=== PATIENT | female | born 1970 | race Caucasian/White ===

== ENCOUNTER 2017-03-30 06:11 | Inpatient (IN) | payer MEDICARE ==
[~2017-03-30] VITALS: Ht 167.6 cm; Wt 107.7 kg
[~2017-03-30 06:11] MED LIST: ADVAIR 250/501 DISK INH; BUSPAR10 MG PO; CALCIUM 600+D T1 TA1 PO; CELEXA40 MG PO; COUMADIN5 MG PO; CRANBERRY475 MG PO; CYCLOBENZAPRINE10 MG PO; DOC-Q-LACE100 MG PO; ELIQUIS2.5 MG PO; FLEXERIL10 MG PO; INDOCIN25 MG PO; K-DUR20 MEQ PO; LASIX40 MG PO; LEVAQUIN750 MG PO; MACRODANTIN100 MG PO; MEDROL DOSE PACK4 MG PO; MEDROL2 MG PO; MICRO-K10 MEQ PO; MUCINEX600 MG PO; NAPROSYN250 MG PO; NEURONTIN800 MG PO; NIFEREX-150 CAP1 CA3 PO; OMNICEF300 MG PO; PEPCID AC20 MG PO; PERCOCET 10/3251 TA1; PERCOCET 10/3251 TA1 PO; PERCOCET 5-3251 TAB PO; PROVENTIL/2.5 MG/3 M NEB; PROZAC20 MG PO; PROZAC40 MG PO; ROXICET PO; SEROQUEL100 MG PO; TRILEPTAL300 MG PO; TRILEPTAL600 MG PO; VALIUM5 MG PO; VENTOLIN HFA18 GM INH; VOLTAREN75 MG PO; ZIAC 5/6.25 MG1 TAB; ZIAC 5/6.25 MG1 TAB PO; ZITHROMAX500 MG PO; [UNRECOGNIZED DRUG - OTHER] PO
[2017-03-30 06:44] LABS: BASOPHILS 0.1 % (0-2); EOSINOPHILS 0.3 % (0-7); HEMATOCRIT 34.7 % (36.0-48.0); HEMOGLOBIN 11.2 g/dL (12-16); IMMATURE GRANULOCYTES 0.5 % (0-5); LYMPHOCYTES 15.5 % (15-50); MCH 32.3 pg (26.0-34.0); MCHC 32.3 g/dL (31.0-37.0); MEAN PLATELET VOLUME 11.1 fL (7.4-10.4); MONOCYTES 11.3 % (2-11); NEUTROPHILS 72.3 % (40-80); RBC 3.47 10x6/uL (4.00-5.40); RDW 14.9 % (11.5-14.5); WBC 17.6 10x3/uL (4.8-10.8)
[2017-03-30 06:58] LABS: ALBUMIN 2.9 g/dL (3.4-5.0); ALKALINE PHOSPHATASE 79 U/L (46-116); ALT (SGPT) 25 U/L (10-68); AMYLASE - SERUM 22 U/L (25-115); CALC OSMOLALITY 272 mosm/kg (275-300); CALCIUM 9.2 mg/dL (8.5-10.1); CARBON DIOXIDE 26.4 mmol/L (21.0-32.0); CHLORIDE - SERUM 101 mmol/L (98-107); CREATININE - SERUM 0.7 mg/dL (0.6-1.3); LIPASE 69 U/L (73-393); POTASSIUM - SERUM 3.3 mmol/L (3.5-5.1); PROTEIN - SERUM 6.7 g/dL (6.4-8.2); SODIUM 137 mmol/L (136-145); UREA NITROGEN 11 mg/dL (7-18); eGFR NON AFRICAN AMERICAN > 90 mL/min (90-120)
[2017-03-30 07:00] LABS: GLUCOSE 102 mg/dL (74-106)
[2017-03-30 07:05] LABS: PLATELET COUNT 366 10x3/uL (130-400)
[2017-03-30 07:40] LABS: UDS - AMPHET NEGATIVE QUAL (NEGATIVE); UDS - BARB NEGATIVE QUAL (NEGATIVE); UDS - BENZO POSITIVE QUAL (NEGATIVE); UDS - COCAINE NEGATIVE QUAL (NEGATIVE); UDS - METH NEGATIVE QUAL (NEGATIVE); UDS - OPIATE NEGATIVE QUAL (NEGATIVE); UDS - PCP NEGATIVE QUAL (NEGATIVE); UDS - THC NEGATIVE QUAL (NEGATIVE)
[2017-03-30 07:41] LABS: APPEARANCE CLEAR (CLEAR); BILIRUBIN NEGATIVE (NEGATIVE); COLOR YELLOW (YELLOW); GLUCOSE NEGATIVE (NEGATIVE); KETONE NEGATIVE (NEGATIVE); LEUKOCYTE ESTERASE TRACE (NEGATIVE); NITRITE NEGATIVE (NEGATIVE); PROTEIN NEGATIVE (NEGATIVE)
[2017-03-30 07:43] LABS: RED CELLS - URINE 0-5 /hpf (0-5)
[2017-03-30 07:43] LABS: CREATINE KINASE 17 UL (21-215); TROPONIN-I < 0.017 ng/mL (0.000-0.060)
[2017-03-30 07:44] LABS: BACTERIA FEW /hpf (NONE SEEN); EPITHELIAL CELLS 25-50 /hpf (0-5)
--- NOTE | 2017-03-30 12:21 | NUR ---
ALERT AND ORIENTED X4. ARRIVE TO UNIT VIA WHEELCHAIR FROM ER. LEVAQUIN AND NS BOLUS GIVEN IN ER. ZOFRAN AND TORADOL GIVEN IN ER. COMPLAINS OF SOB. OXYGEN THERAPY 2L NC. RECIEVE UPDRAFT FROM RESPIRATORY THERAPY. INITIATE VANCOMYCIN INFUSION ORDERED. CONTINUE ADMISSION PROCESS. BED LOCKED AND LOW. CALL LIGHT IN REACH. TWO SIDERAILS UP. REFUSE SCDs. AMBULATORY. GAIT STEADY.
[2017-03-30] MEDS ORDERED: PROZAC10 MG PO (12:24)
[2017-03-30] MEDS ORDERED: CYMBALTA30 MG PO (12:26)
[2017-03-30] MEDS ORDERED: INVEGA6 MG/BLIST PO (12:27)
[2017-03-30] MEDS ORDERED: ULTRAM50 MG PO (12:28)
[2017-03-30] MEDS ORDERED: BACLOFEN10 MG PO (12:28)
[2017-03-30 13:13] VITALS: BP 110/73; BMI 36.2
--- NOTE | 2017-03-30 14:14 | NUR ---
ALERT AND ORIENTED X4. RESTING IN BED. PRABHA RAYMUNDO CALLED FOR UPDATE. NOT ON HIPPA FORM. ASK PATIENT IF OK TO TALK WITH PRABHA. OK TO GIVE INFORMATION TO PRABHA PER PATIENT. CONTINUE PLAN OF CARE AND SAFETY PRECAUTIONS. COOKY MACHINE OPERATOR DENIES TELEMETRY DUE TO LIMITED SPOTS ON MONITOR.
[2017-03-30 16:59] VITALS: BP 90/59
[2017-03-30 21:16] VITALS: BP 134/68
--- NOTE | 2017-03-30 21:42 | NUR ---
PT AWAKE, ALERT, ORIENTED, LYING IN BED, DENIES ANY NEEDS. PT STATES SHE DOES HAVE PAIN WHEN SHE COUGHS. CONTINUE TO MONITOR CLOSELY. BED LOW, CALL LIGHT IN REACH, SIDE RAILS X 2, HOB 30 DEGREES.
[2017-03-30 23:55] VITALS: BP 125/76
--- NOTE | 2017-03-31 01:01 | NUR ---
PT LYING IN BED, EYES CLOSED, RESPIRATIONS EVEN AND UNLABORED. PT EASILY ROUSABLE TO VERBAL STIMULI, DENIES ANY NEEDS. CONTINUE TO MONITOR CLOSELY.
[2017-03-31 03:56] VITALS: BP 111/70
[2017-03-31 06:27] LABS: BASOPHILS 0.1 % (0-2); EOSINOPHILS 1.2 % (0-7); HEMATOCRIT 31.2 % (36.0-48.0); HEMOGLOBIN 10.1 g/dL (12-16); IMMATURE GRANULOCYTES 1.2 % (0-5); LYMPHOCYTES 18.1 % (15-50); MCH 32.9 pg (26.0-34.0); MCHC 32.4 g/dL (31.0-37.0); MCV 101.6 fL (80.0-100.0); MEAN PLATELET VOLUME 11.4 fL (7.4-10.4); NEUTROPHILS 65.4 % (40-80); PLATELET COUNT 318 10x3/uL (130-400); RBC 3.07 10x6/uL (4.00-5.40); WBC 14.8 10x3/uL (4.8-10.8)
[2017-03-31 07:36] LABS: ALBUMIN 2.2 g/dL (3.4-5.0); ALKALINE PHOSPHATASE 69 U/L (46-116); ALT (SGPT) 20 U/L (10-68); CALC OSMOLALITY 280 mosm/kg (275-300); CALCIUM 8.7 mg/dL (8.5-10.1); CARBON DIOXIDE 27.4 mmol/L (21.0-32.0); CHLORIDE - SERUM 106 mmol/L (98-107); CREATININE - SERUM 0.7 mg/dL (0.6-1.3); GLUCOSE 102 mg/dL (74-106); PROTEIN - SERUM 5.2 g/dL (6.4-8.2); SODIUM 141 mmol/L (136-145); UREA NITROGEN 12 mg/dL (7-18); eGFR NON AFRICAN AMERICAN > 90 mL/min (90-120)
[2017-03-31 08:00] VITALS: BP 116/77
--- NOTE | 2017-03-31 09:15 | NUR ---
PATEINT IS AWAKE AND ALERT, INTERACTIVE THIS MORNING. ALL ORAL MEDICATIONS GIVEN AND TAKEN WITHOUT DIFFICULTY. ULTRAM GIVEN FOR BACK DISCOMFORT. FRESH ICE WATER GIVEN. SHE DENIES OTHER NEEDS AT THIS TIME.
--- NOTE | 2017-03-31 10:36 | NUR ---
PATIENT IS RESTING WITH EYES CLOSED WHEN I ENTER. SHE STATES THAT HER PAIN IS MUCH BETTER. DOWN TO A 3.
[2017-03-31 11:56] VITALS: BP 107/65
[2017-03-31 13:47] VITALS: Ht 167.6 cm; Wt 107.7 kg
--- NOTE | 2017-03-31 14:31 | NUR ---
PATIENT AWAKE AND ALERT, TOOK MEDICATIONS WITHOUT DIFFICULTY. DENIES NEEDS.
[2017-03-31 17:48] VITALS: BP 93/67
--- NOTE | 2017-03-31 18:36 | NUR ---
Patient Name: GRICELDA SANDOVAL Admission Status: ER Accout number: [id number] Admission Date: 03-30-2017 : 1970 Admission Diagnosis: Attending: RICHAR Current LOS: 1 Anticipated DC Date: Planned Disposition: Home Primary Insurance: MEDICARE A & B Discharge Planning Comments: CM MET WITH PATIENT TO DISCUSS DISCHARGE PLANNING/NEEDS. PATIENT STATED THAT SHE LIVES AT HOME WITH HER SON AND GRANDDAUGHTER. STATED THAT THIS IS WHERE SHE PLANS TO RETURN. SHE STATED THAT HER LDMRST-NR-WNM, TARYN HARRIS, WOULD BE HER RIDE HOME, BUT SHE DID NOT KNOW HIS NUMBER. SAID THAT HER SON WOULD HAVE TO GET IT FOR HER. SHE STATED THAT SHE HAD HOME HEALTH >3 YEARS AGO AFTER HER KNEE SURGERY BUT HASN'T HAD ANY SINCE THEN. SHE DENIES THE NEED FOR ANY COMMUNITY RESOURCES AT THIS TIME. CM WILL CONTINUE TO FOLLOW AND ASSIST NEEDED. Prescriptionist: Kaci Samuels Is the patient Alert and Oriented? Yes * How many steps to enter\exit or inside your home? 3, RAIL * PCP DR EN[place] * Pharmacy [facility] * Preadmission Environment Home with Family * ADLs Independent * Equipment Cane * List name and contact numbers for known caregivers / representatives who currently or will assist patient after discharge: SHON CEDEÑO, SISTER, * Community resources currently utilized None * Additional services required to return to the preadmission environment? No * Can the patient safely return to the preadmission environment? Yes * Has this patient been hospitalized within the prior 30 days at any hospital? No
[2017-03-31 19:00] VITALS: BP 141/83
--- NOTE | 2017-03-31 21:42 | NUR ---
PT AWAKE, ALERT, ORIENTED, DENIES ANY NEEDS. CONTINUE TO MONITOR CLOSELY. BED LOW, CALL LIGHT IN REACH, SIDE RAILS X 2, HOB 30-35 DEGREES, PT TO CALL WHEN NEEDING ANY ASSIST.
[2017-04-01] VITALS: BP 139/87
[2017-04-01 04:00] VITALS: BP 118/75
[2017-04-01 05:13] LABS: BASOPHILS 0.1 % (0-2); HEMATOCRIT 31.2 % (36.0-48.0); IMMATURE GRANULOCYTES 1.2 % (0-5); LYMPHOCYTES 16.9 % (15-50); MCH 32.5 pg (26.0-34.0); MCHC 32.1 g/dL (31.0-37.0); MCV 101.3 fL (80.0-100.0); MEAN PLATELET VOLUME 11.3 fL (7.4-10.4); MONOCYTES 11.6 % (2-11); NEUTROPHILS 69.2 % (40-80); PLATELET COUNT 339 10x3/uL (130-400); RBC 3.08 10x6/uL (4.00-5.40); RDW 14.8 % (11.5-14.5); WBC 15.5 10x3/uL (4.8-10.8)
[2017-04-01 05:39] LABS: ALKALINE PHOSPHATASE 77 U/L (46-116); ALT (SGPT) 15 U/L (10-68); BILIRUBIN - TOTAL 0.64 mg/dL (0.2-1.3); CARBON DIOXIDE 27.9 mmol/L (21.0-32.0); CHLORIDE - SERUM 103 mmol/L (98-107); CREATININE - SERUM 0.6 mg/dL (0.6-1.3); POTASSIUM - SERUM 3.5 mmol/L (3.5-5.1); PROTEIN - SERUM 5.6 g/dL (6.4-8.2); SODIUM 138 mmol/L (136-145); UREA NITROGEN 11 mg/dL (7-18); eGFR NON AFRICAN AMERICAN > 90 mL/min (90-120)
[2017-04-01 05:53] LABS: CALC OSMOLALITY 277 mosm/kg (275-300); CALCIUM 8.8 mg/dL (8.5-10.1); GLUCOSE 157 mg/dL (74-106)
--- NOTE | 2017-04-01 06:25 | NUR ---
PT AWAKE, ALERT, ORIENTED, DENIES ANY NEEDS. CONTINUE TO MONITOR CLOSELY.
[2017-04-01 08:00] VITALS: BP 117/78
--- NOTE | 2017-04-01 08:03 | NUR ---
AM ROUNDING- RECEIVED REPORT FROM OPAL POLISHER NURSE MARIE. PT IS CURRENTLY LAYING IN BED ON BACK WITH EYES OPEN RESTING. ON 02 AT 2L VIA NC. ON MONITOR SHOWING SR, HR 98. IV SEEN TO RIGHT AC WITH NS RUNNING AT KVO (30CC). NO NEED AT CURRENT TIME. WILL CONTINUE TO MONITOR AND CONTINUE WITH PLAN OF CARE.
[2017-04-01 12:00] VITALS: BP 124/81
[2017-04-01 15:51] VITALS: BP 123/70
--- NOTE | 2017-04-01 18:07 | NUR ---
PT IS CURRENTLY SITTING UP IN BED WITH EYES OPEN RESTING. PT DENIES ANY NEED AT CURRENT TIME. WILL CONTINUE TO MONITOR.
[2017-04-01 19:00] VITALS: BP 119/72
--- NOTE | 2017-04-01 21:00 | NUR ---
SHIFT ASSESSMENT COMPLETED. LYING IN BED RESTING. NO VOICED NEEDS AT THIS TIME. MONITOR SHOWS SINUS RHYTHM W/ BBB AT 88/MIN. O2 ON @ 2L/NC. BED LOW POSITION. CALL LIGHT IN REACH. WILL CONTINUE TO MONITOR.
[2017-04-02] VITALS (11 sets, daily range): BP systolic 116–166; BP diastolic 74–100
[2017-04-02 06:23] LABS: BASOPHILS 0.1 % (0-2); EOSINOPHILS 0 % (0-7); HEMATOCRIT 32.7 % (36.0-48.0); HEMOGLOBIN 10.8 g/dL (12-16); IMMATURE GRANULOCYTES 2.1 % (0-5); LYMPHOCYTES 10.5 % (15-50); MCH 32.8 pg (26.0-34.0); MCV 99.4 fL (80.0-100.0); MEAN PLATELET VOLUME 10.6 fL (7.4-10.4); MONOCYTES 7.3 % (2-11); PLATELET COUNT 328 10x3/uL (130-400); RBC 3.29 10x6/uL (4.00-5.40); RDW 14.6 % (11.5-14.5)
[2017-04-02 06:41] LABS: ALBUMIN 2.1 g/dL (3.4-5.0); ALKALINE PHOSPHATASE 83 U/L (46-116); ALT (SGPT) 15 U/L (10-68); CALC OSMOLALITY 285 mosm/kg (275-300); CALCIUM 9.1 mg/dL (8.5-10.1); CARBON DIOXIDE 27.8 mmol/L (21.0-32.0); CHLORIDE - SERUM 105 mmol/L (98-107); CREATININE - SERUM 0.6 mg/dL (0.6-1.3); GLUCOSE 182 mg/dL (74-106); POTASSIUM - SERUM 3.9 mmol/L (3.5-5.1); PROTEIN - SERUM 6.5 g/dL (6.4-8.2); SODIUM 141 mmol/L (136-145); UREA NITROGEN 13 mg/dL (7-18); eGFR NON AFRICAN AMERICAN > 90 mL/min (90-120)
--- NOTE | 2017-04-02 08:00 | NUR ---
AM ROUNDING- RECEIVED REPORT FROM WINDOW SHADE RING COVERER NURSE DORIS. PT IS CURRENTLY LAYING IN BED ON BACK WITH EYES CLOSED RESTING. ON 02 AT 2L VIA NC. ON MONITOR SHOWING SR, HR 89. IV SEEN TO RIGHT AC WITH NS RUNNING AT KVO (30CC) WITH NEW BAG JUST HUNG. NO NEED AT CURRENT TIME. WILL CONTINUE TO MONITOR AND CONTINUE WITH PLAN OF CARE.
--- NOTE | 2017-04-02 14:00 | NUR ---
CONSENTS FOR PROCEDURE SIGNED BY PT AND PLACED IN CHART. NPO SIGN HUNG ON DOOR. INFORMED PT TO REMAIN NOTHING BY MOUTH PER ORDER. PT AGREES. IR ON UNIT NOW. INFORMED THEM THAT PT HAS EATEN LUNCH. WILL AWAIT FOR IR TO COME GET PT AND CONTINUE TO MONITOR.
[2017-04-02 14:06] LABS: APTT 31.1 SECONDS (22.8-39.4); INR 1.11 (0.85-1.17); PROTIME 14.2 SECONDS (11.6-15.0)
--- NOTE | 2017-04-02 14:59 | NUR ---
PT TO PROCEDURE WITH IR VIA WHEELCHAIR.
--- NOTE | 2017-04-02 16:15 | NUR ---
1606- PT BACK FROM IR VIA BED. WILL DO FREQUENT VITAL SIGNS PER ORDER. CLEAN, DRY, AND INTACT DRESSING SEEN TO RIGHT MID BACK AREA. WILL CONTINUE TO MONITOR.
[2017-04-02 16:59] LABS: PROTEIN - BODY FLUID 3.7 G/DL
[2017-04-02 17:10] LABS: LYMPH - BF 30 %; MACROPHAGES BF 2 %; NEUT - BF 68 %
--- NOTE | 2017-04-02 17:29 | NUR ---
PT IS SITTING UP IN BED WITH EYES OPEN RESTING. DENIES ANY NEED AT CURRENT TIME. CALLED FOR DINNER TRAY SINCE PT HAS NOT YET RECEIVED ONE. WILL CONTINUE TO MONITOR.
--- NOTE | 2017-04-02 17:55 | NUR ---
PT IS CURRENTLY SITTING UP IN BED EATING DINNER. FREQUENT VITAL SIGNS BEING TAKING PER ORDER. NO NEED AT CURRENT TIME. WILL CONTINUE TO MONITOR.
--- NOTE | 2017-04-02 20:20 | NUR ---
REPORT RECEIVED AND CARE ASSUMED. RESTING IN BED WITH EYES CLOSED. RESP. EVEN AND UNLABORED. BED IN LOW POSITION. CALL LIGHT IN REACH. WILL CONTINUE TO MONITOR. VSS.
--- NOTE | 2017-04-02 21:30 | NUR ---
SHIFT ASSESSMENT COMPLETED PER FLOW SHEET. DENIES ANY NEEDS.
[2017-04-03] VITALS: BP 147/80
[2017-04-03 04:00] VITALS: BP 142/87
[2017-04-03 05:31] LABS: BASOPHILS 0.1 % (0-2); EOSINOPHILS 0 % (0-7); HEMATOCRIT 30.9 % (36.0-48.0); HEMOGLOBIN 10.1 g/dL (12-16); IMMATURE GRANULOCYTES 3.1 % (0-5); LYMPHOCYTES 11.2 % (15-50); MCH 32.3 pg (26.0-34.0); MCHC 32.7 g/dL (31.0-37.0); MCV 98.7 fL (80.0-100.0); MEAN PLATELET VOLUME 11.2 fL (7.4-10.4); NEUTROPHILS 76.6 % (40-80); PLATELET COUNT 392 10x3/uL (130-400); RBC 3.13 10x6/uL (4.00-5.40); RDW 14.6 % (11.5-14.5)
[2017-04-03 05:36] LABS: WBC 19.2 10x3/uL (4.8-10.8)
[2017-04-03 05:52] LABS: ALKALINE PHOSPHATASE 78 U/L (46-116); ALT (SGPT) 13 U/L (10-68); CALC OSMOLALITY 281 mosm/kg (275-300); CALCIUM 9.3 mg/dL (8.5-10.1); CARBON DIOXIDE 27.6 mmol/L (21.0-32.0); CHLORIDE - SERUM 104 mmol/L (98-107); CREATININE - SERUM 0.7 mg/dL (0.6-1.3); GLUCOSE 250 mg/dL (74-106); POTASSIUM - SERUM 3.8 mmol/L (3.5-5.1); PROTEIN - SERUM 6.3 g/dL (6.4-8.2); SODIUM 136 mmol/L (136-145); UREA NITROGEN 17 mg/dL (7-18); eGFR NON AFRICAN AMERICAN > 90 mL/min (90-120)
--- NOTE | 2017-04-03 08:23 | NUR ---
ASSESSMENT DONE. DENIES NEEDS.
[2017-04-03 08:44] VITALS: BP 139/91
--- NOTE | 2017-04-03 10:19 | NUR ---
RESP UL ON . IV PATENT. RESTS WITH EYES CLOSED. CALL LIGHT IN REACH. WILL CONT. PLAN OF CARE.
[2017-04-03 12:00] VITALS: BP 137/85
--- NOTE | 2017-04-03 13:41 | NUR ---
Nutrition follow-up: Diet: Regular PO intake ~75% of meals Labs reviewed RDN following.
[2017-04-03 18:24] VITALS: BP 147/92
[2017-04-03 19:00] VITALS: BP 143/88
--- NOTE | 2017-04-04 00:35 | NUR ---
NURSE ROUNDS 04/03/17 21:30 - PT LYING IN BED, AWAKE, ALERT, ORIENTED, DENIED ANY NEEDS. CONTINUE TO MONITOR CLOSELY. BED LOW, CALL LIGHT IN REACH, SIDE RAILS X 2, HOB 35 DEGREES.
[2017-04-04 04:00] VITALS: BP 125/81
--- NOTE | 2017-04-04 05:26 | NUR ---
PT AWAKE, ALERT, ORIENTED, DENIES ANY NEEDS. CONTINUE TO MONITOR CLOSELY.
[2017-04-04 05:27] LABS: BASOPHILS 0.2 % (0-2); EOSINOPHILS 0.6 % (0-7); HEMATOCRIT 32.8 % (36.0-48.0); HEMOGLOBIN 10.7 g/dL (12-16); LYMPHOCYTES 26.4 % (15-50); MCH 32.4 pg (26.0-34.0); MCHC 32.6 g/dL (31.0-37.0); MCV 99.4 fL (80.0-100.0); MEAN PLATELET VOLUME 10.8 fL (7.4-10.4); MONOCYTES 12.3 % (2-11); NEUTROPHILS 54.5 % (40-80); PLATELET COUNT 348 10x3/uL (130-400); RDW 14.6 % (11.5-14.5); WBC 16.1 10x3/uL (4.8-10.8)
[2017-04-04 05:44] LABS: ALKALINE PHOSPHATASE 72 U/L (46-116); ALT (SGPT) 13 U/L (10-68); CALCIUM 8.6 mg/dL (8.5-10.1); CARBON DIOXIDE 30.4 mmol/L (21.0-32.0); CHLORIDE - SERUM 105 mmol/L (98-107); CREATININE - SERUM 0.7 mg/dL (0.6-1.3); PROTEIN - SERUM 6.2 g/dL (6.4-8.2); SODIUM 141 mmol/L (136-145); UREA NITROGEN 17 mg/dL (7-18); eGFR NON AFRICAN AMERICAN > 90 mL/min (90-120)
[2017-04-04 05:47] LABS: CALC OSMOLALITY 285 mosm/kg (275-300); GLUCOSE 154 mg/dL (74-106); POTASSIUM - SERUM 3.2 mmol/L (3.5-5.1)
[2017-04-04 08:00] VITALS: BP 130/80
--- NOTE | 2017-04-04 08:13 | NUR ---
AM ROUNDING DONE WITH PATIENT DENING ANY NEEDS AT PRESENT TIME. ON 4L PER NC. ON HEART MONITOR SHOWING SR, HR 79. SALINE LOCK SEEN TO RIGHT AC. ON EP WITH K+ 3.2 THIS AM. THIS WAS COVERED WITH PREVIOUS NURSE AND RE-DRAW LAB ORDERED.
[2017-04-04 12:00] VITALS: BP 126/84
[2017-04-04 16:00] VITALS: BP 122/82
[2017-04-04 16:09] LABS: ACID FAST SMEAR Negative (()); AFB SPECIMEN PROCESSING Concentration (())
--- NOTE | 2017-04-04 16:31 | NUR ---
DENIES NEEDS THIS SHIFT EXCEPT FOR ICE WATER. IV ANTIBIOTICS STILL INFUSING TO RIGHT AC WITHOUT PROBLEMS. PATIENT STATES THAT SHE IS FEELING BETTER THAN THIS MORNING.
[2017-04-04 20:00] VITALS: BP 133/86
[2017-04-05 04:00] VITALS: BP 123/74
--- NOTE | 2017-04-05 07:37 | NUR ---
AM ROUNDING DONE WITH PATIENT RECEIVEG BREATHING TREATMENT AT THIS TIME. SHAKES HER HEAD NO WHEN ASKED IF SHE NEEDS ANYTHING. ON 3L PER NC. ON HEART MONITOR SHOWING SR, HR 83. ON EP, LAB VALUES ARE ORDERED. NS INFUSING AT 10 CC/HR TO RIGHT AC WITHOUT PROBLEMS. WILL CHECK LAB VALUES WHEN BACK AND LOOK AT LEFT DIRECTOR DIGITAL SALES BACK DRESSING WHEN UP.
[2017-04-05 08:09] VITALS: BP 119/79
[2017-04-05 09:30] LABS: MAGNESIUM - SERUM 1.5 mg/dL (1.8-2.4); PHOSPHOROUS 3.5 mg/dL (2.5-4.9); POTASSIUM - SERUM 3.4 mmol/L (3.5-5.1)
[2017-04-05 12:00] VITALS: BP 110/71
--- NOTE | 2017-04-05 13:55 | NUR ---
PATIENT UP IN HALLWAY WITH THERAPY, ROLLING WALKER, AND PORTABLE O2. BED LINENS CHANGED. DENIES ANY SHORTNESS OF BREATH OR PAIN. WILL CONTINUE TO FOLLOW.
--- NOTE | 2017-04-05 17:00 | NUR ---
IV INFUSING STILL TO RIGHT AC WITHOUT PROBLEMS. DENIES ANY PAIN OR DISCOMFORT TO THIS AREA. EATING SUPPER. WILL CONTINUE TO MONITOR.
[2017-04-05 20:00] VITALS: BP 113/78
--- NOTE | 2017-04-06 01:46 | NUR ---
REC'D.1930) WATCHING TV DENIES ANY COMPLAINTS OR DISCOMFORT AT PRESENT TIME. WILL CONTINUE TO MONITOR FOR ANY CHGES AND FOLLOW CURRENT PLAN OF CARE
[2017-04-06 04:58] LABS: BASOPHILS 0.2 % (0-2); EOSINOPHILS 3.8 % (0-7); HEMATOCRIT 35.5 % (36.0-48.0); HEMOGLOBIN 11.4 g/dL (12-16); LYMPHOCYTES 22.3 % (15-50); MCHC 32.1 g/dL (31.0-37.0); MCV 99.7 fL (80.0-100.0); MEAN PLATELET VOLUME 10.3 fL (7.4-10.4); MONOCYTES 10.5 % (2-11); NEUTROPHILS 61.2 % (40-80); PLATELET COUNT 331 10x3/uL (130-400); RBC 3.56 10x6/uL (4.00-5.40); RDW 15.1 % (11.5-14.5); WBC 14.1 10x3/uL (4.8-10.8)
[2017-04-06 05:18] LABS: CALC OSMOLALITY 281 mosm/kg (275-300); CALCIUM 8.8 mg/dL (8.5-10.1); CARBON DIOXIDE 30.3 mmol/L (21.0-32.0); CHLORIDE - SERUM 103 mmol/L (98-107); CREATININE - SERUM 0.8 mg/dL (0.6-1.3); GLUCOSE 137 mg/dL (74-106); POTASSIUM - SERUM 3.6 mmol/L (3.5-5.1); SODIUM 140 mmol/L (136-145); UREA NITROGEN 14 mg/dL (7-18); eGFR NON AFRICAN AMERICAN 82 mL/min (90-120)
--- NOTE | 2017-04-06 07:26 | NUR ---
AM ROUNDS- PT IN BED, DENIES ANY NEEDS AT THIS TIME. BED LOW AND WHEELS LOCKED. BEDRAILS X2, RT AC INFUSING VANCOMYCIN AT 100. CALL LIGHT IN REACH, NAD NOTED, WILL CONTINUE TO MONITOR.
--- NOTE | 2017-04-06 09:30 | NUR ---
ADMINISTERED MORNING MEDS. VANCOMYCIN DONE INFUSING AT THIS TIME. RT AC IV SL AT NOW. PT IN BED, DENIES ANY NEEDS, CALL LIGHT IN REACH, NAD NOTED, WILL CONTINUE TO MONITOR.
[2017-04-06 12:39] VITALS: BP 102/63
--- NOTE | 2017-04-06 15:43 | NUR ---
IVPB LEVAQUIN INFUSING AT THIS TIME. PT IN BED, DENIES ANY NEEDS AT THIS TIME. CALL LIGHT IN REACH, NAD NOTED, WILL CONTINUE TO MONITOR.
[2017-04-06 16:51] VITALS: BP 115/73
[2017-04-06 19:00] VITALS: BP 107/71
--- NOTE | 2017-04-06 21:10 | NUR ---
PT AWAKE, ALERT, ORIENTED, DENIES ANY NEEDS. CONTINUE TO MONITOR CLOSELY.
--- NOTE | 2017-04-06 23:32 | NUR ---
PTS IV HAD INFILTRATED BEFORE START OF MY SHIFT. I REMOVED THE RIGHT AC IV WITH CATH TIP INTACT. WILL RESITE. I DID HAVE TO HOLD PTS 20:30 DOSE OF ZOSYN R/T THIS. CONTINUE TO MONITOR CLOSELY.
[2017-04-07] VITALS: BP 105/72
--- NOTE | 2017-04-07 01:54 | NUR ---
PT AWAKE, ALERT, ORIENTED, C/O NOT BEING ABLE TO SLEEP. PT C/O CHEST PAIN R/T HER PLEURISY, DENIES ANY OTHER NEEDS. CONTINUE TO MONITOR CLOSELY.
[2017-04-07 04:00] VITALS: BP 104/67
[2017-04-07 05:40] LABS: BASOPHILS 0.2 % (0-2); EOSINOPHILS 3.1 % (0-7); HEMATOCRIT 35.9 % (36.0-48.0); HEMOGLOBIN 11.5 g/dL (12-16); IMMATURE GRANULOCYTES 1.4 % (0-5); LYMPHOCYTES 20.3 % (15-50); MCH 31.9 pg (26.0-34.0); MCV 99.7 fL (80.0-100.0); MEAN PLATELET VOLUME 10.6 fL (7.4-10.4); MONOCYTES 9.6 % (2-11); NEUTROPHILS 65.4 % (40-80); PLATELET COUNT 309 10x3/uL (130-400); RDW 15.1 % (11.5-14.5)
[2017-04-07 06:07] LABS: CALC OSMOLALITY 276 mosm/kg (275-300); CALCIUM 8.5 mg/dL (8.5-10.1); CARBON DIOXIDE 27.7 mmol/L (21.0-32.0); CHLORIDE - SERUM 101 mmol/L (98-107); CREATININE - SERUM 0.7 mg/dL (0.6-1.3); GLUCOSE 152 mg/dL (74-106); MAGNESIUM - SERUM 1.6 mg/dL (1.8-2.4); PHOSPHOROUS 2.8 mg/dL (2.5-4.9); POTASSIUM - SERUM 3.7 mmol/L (3.5-5.1); SODIUM 137 mmol/L (136-145); UREA NITROGEN 13 mg/dL (7-18); eGFR NON AFRICAN AMERICAN > 90 mL/min (90-120)
--- NOTE | 2017-04-07 07:10 | NUR ---
RECEIVED REPORT. ASSUMED CARE OF PATIENT. PATIENT LYING IN BED, ALERT/ORIENTED. CALL LIGHT WITHIN REACH. RESP EVEN AND UNLABORED. IV INFUSING ORDERED. NO DISTRESS. DENIES NEEDS AT THIS TIME.
[2017-04-07 08:23] VITALS: BP 170/70
--- NOTE | 2017-04-07 10:00 | NUR ---
PATIENT OOB AMBULATING WITH PT AT THIS TIME. NO DISTRESS.
[2017-04-07 12:40] VITALS: BP 140/74
--- NOTE | 2017-04-07 15:41 | NUR ---
Patient Name: GRICELDA SANDOVAL Encounter No: [id number] : 1970 Primary Insurance: MEDICARE A & B Anticipated DC Date: 04-08-2017 Planned Disposition: Home DCP follow-up note: CM MET WITH PT IN ROOM TO DISCUSS DISCHARGE NEEDS AND PLANNING. CM DISCUSSED AVAILABILITY OF HOME HEALTH, REHAB SERVICES AND MEDICAL EQUIPMENT. PT DENIES DISCHARGE NEEDS. FATHER IN LAW TO TRANSPORT HOME AT DISCHARGE. IMPORTANT MESSAGE FROM MEDICARE PROVIDED AND EXPLAINED. Alan Bautista, CASE MANAGEMENT
[2017-04-07 16:15] VITALS: BP 148/64
--- NOTE | 2017-04-07 17:40 | NUR ---
RESTING IN BED WITH EYES OPEN. DENIES NEEDS AT THIS TIME. NO DISTRESS.
[2017-04-07 19:00] VITALS: BP 135/77
--- NOTE | 2017-04-07 21:14 | NUR ---
PT AWAKE, ALERT, ORIENTED, DENIES ANY NEEDS. PT IS HOPEFUL ABOUT GOING HOME TOMORROW. CONTINUE TO MONITOR CLOSELY. BED LOW, CALL LIGHT IN REACH, SIDE RAILS X 2, HOB 30 DEGREES.
[2017-04-08] VITALS: BP 157/81
--- NOTE | 2017-04-08 03:55 | NUR ---
PT AWAKE, ALERT, ORIENTED R/T IV PUMP INFUSION COMPLETE, DENIES ANY NEEDS. ORAL TEMP 99.1, PT DENIES FEELING BAD OR ANY NEW CHANGES. CONTINUE TO MONITOR CLOSELY. BED LOW, CALL LIGHT IN REACH, SIDE RAILS X 2, HOB 25-30 DEGREES.
[2017-04-08 04:00] VITALS: BP 144/74
[2017-04-08 05:38] LABS: BASOPHILS 0.1 % (0-2); EOSINOPHILS 2.2 % (0-7); HEMOGLOBIN 11.3 g/dL (12-16); LYMPHOCYTES 14.2 % (15-50); MCHC 32.3 g/dL (31.0-37.0); MCV 99.2 fL (80.0-100.0); MEAN PLATELET VOLUME 10.7 fL (7.4-10.4); MONOCYTES 10.8 % (2-11); NEUTROPHILS 71.7 % (40-80); PLATELET COUNT 278 10x3/uL (130-400); RBC 3.53 10x6/uL (4.00-5.40); RDW 14.9 % (11.5-14.5); WBC 18.8 10x3/uL (4.8-10.8)
[2017-04-08 05:56] LABS: CALC OSMOLALITY 279 mosm/kg (275-300); CALCIUM 8.5 mg/dL (8.5-10.1); CARBON DIOXIDE 28.5 mmol/L (21.0-32.0); CHLORIDE - SERUM 101 mmol/L (98-107); CREATININE - SERUM 0.7 mg/dL (0.6-1.3); GLUCOSE 170 mg/dL (74-106); POTASSIUM - SERUM 3.9 mmol/L (3.5-5.1); SODIUM 138 mmol/L (136-145); UREA NITROGEN 12 mg/dL (7-18); eGFR NON AFRICAN AMERICAN > 90 mL/min (90-120)
[2017-04-08 06:47] LABS: ERYTHROCYTE SEDIMENTATION RATE 75 mm/hr (0-20)
[2017-04-08 08:00] VITALS: BP 111/61
--- NOTE | 2017-04-08 08:36 | NUR ---
AM ROUNDS - PT IS AWAKE. OS AT 2L VIA NC. BED AT LOWEST POSITION. SIDE RAILS UP X2. CALL MENA IN USE/REACH. MONITOR SHOWING ST, HR 123. IV TO LEFT FA, NS AT KVO. NO NEEDS AT THIS TIME. WILL CONTINUE TO MONITOR
[2017-04-08 12:00] VITALS: BP 122/66
[2017-04-08 16:00] VITALS: BP 127/60
[2017-04-08 16:11] LABS: FUNGUS STAIN Final report (())
[2017-04-08 19:00] VITALS: BP 133/96
[2017-04-09] VITALS: BP 155/83
[2017-04-09 04:34] VITALS: BP 146/71
[2017-04-09 06:14] LABS: BASOPHILS 0.1 % (0-2); EOSINOPHILS 2.6 % (0-7); HEMATOCRIT 33.4 % (36.0-48.0); HEMOGLOBIN 10.6 g/dL (12-16); LYMPHOCYTES 14.9 % (15-50); MCH 31.5 pg (26.0-34.0); MCHC 31.7 g/dL (31.0-37.0); MCV 99.1 fL (80.0-100.0); NEUTROPHILS 69.4 % (40-80); PLATELET COUNT 254 10x3/uL (130-400); RBC 3.37 10x6/uL (4.00-5.40); RDW 14.5 % (11.5-14.5); WBC 16.5 10x3/uL (4.8-10.8)
[2017-04-09 06:40] LABS: CALC OSMOLALITY 276 mosm/kg (275-300); CALCIUM 8.6 mg/dL (8.5-10.1); CARBON DIOXIDE 30.5 mmol/L (21.0-32.0); CHLORIDE - SERUM 101 mmol/L (98-107); CREATININE - SERUM 0.8 mg/dL (0.6-1.3); POTASSIUM - SERUM 3.5 mmol/L (3.5-5.1); SODIUM 138 mmol/L (136-145); UREA NITROGEN 12 mg/dL (7-18); eGFR NON AFRICAN AMERICAN 82 mL/min (90-120)
[2017-04-09 06:42] LABS: GLUCOSE 120 mg/dL (74-106)
[2017-04-09 07:16] LABS: MAGNESIUM - SERUM 1.6 mg/dL (1.8-2.4); PHOSPHOROUS 3.4 mg/dL (2.5-4.9)
--- NOTE | 2017-04-09 07:34 | NUR ---
PT SITTING UP IN BED DENIES NEEDS WILL CONT TOMONITOR
[2017-04-09 08:19] VITALS: BP 135/79
[2017-04-09 08:37] LABS: ERYTHROCYTE SEDIMENTATION RATE 85 mm/hr (0-20)
[2017-04-09 12:06] VITALS: BP 120/65
[2017-04-09 15:47] VITALS: BP 113/56
[2017-04-09 17:21] LABS: BASOPHILS 0.2 % (0-2); EOSINOPHILS 2.1 % (0-7); HEMATOCRIT 32.9 % (36.0-48.0); HEMOGLOBIN 10.6 g/dL (12-16); IMMATURE GRANULOCYTES 0.9 % (0-5); LYMPHOCYTES 14.8 % (15-50); MCHC 32.2 g/dL (31.0-37.0); MCV 99.4 fL (80.0-100.0); MEAN PLATELET VOLUME 10.8 fL (7.4-10.4); MONOCYTES 11.1 % (2-11); NEUTROPHILS 70.9 % (40-80); PLATELET COUNT 248 10x3/uL (130-400); RBC 3.31 10x6/uL (4.00-5.40); RDW 14.4 % (11.5-14.5); WBC 15.3 10x3/uL (4.8-10.8)
[2017-04-09 17:36] LABS: APTT 26.3 SECONDS (22.8-39.4); INR 1.09 (0.85-1.17); PROTIME 13.9 SECONDS (11.6-15.0)
--- NOTE | 2017-04-09 18:11 | NUR ---
PT SITTING UP IN BED DENIES NEEDS
[2017-04-09 21:00] VITALS: BP 118/71
[2017-04-10 00:32] VITALS: BP 123/69
[2017-04-10 04:05] VITALS: BP 122/69
[2017-04-10 05:40] LABS: BASOPHILS 0.2 % (0-2); EOSINOPHILS 2.3 % (0-7); HEMATOCRIT 30.7 % (36.0-48.0); HEMOGLOBIN 9.8 g/dL (12-16); IMMATURE GRANULOCYTES 0.9 % (0-5); LYMPHOCYTES 19.7 % (15-50); MCH 31.5 pg (26.0-34.0); MCHC 31.9 g/dL (31.0-37.0); MCV 98.7 fL (80.0-100.0); MEAN PLATELET VOLUME 10.6 fL (7.4-10.4); MONOCYTES 11.1 % (2-11); NEUTROPHILS 65.8 % (40-80); PLATELET COUNT 243 10x3/uL (130-400); RBC 3.11 10x6/uL (4.00-5.40); RDW 14.3 % (11.5-14.5); WBC 12.7 10x3/uL (4.8-10.8)
[2017-04-10 06:00] LABS: CALC OSMOLALITY 276 mosm/kg (275-300); CALCIUM 8.4 mg/dL (8.5-10.1); CARBON DIOXIDE 32.4 mmol/L (21.0-32.0); CHLORIDE - SERUM 102 mmol/L (98-107); CREATININE - SERUM 0.7 mg/dL (0.6-1.3); GLUCOSE 138 mg/dL (74-106); MAGNESIUM - SERUM 1.6 mg/dL (1.8-2.4); PHOSPHOROUS 3.4 mg/dL (2.5-4.9); POTASSIUM - SERUM 3.5 mmol/L (3.5-5.1); SODIUM 138 mmol/L (136-145); UREA NITROGEN 10 mg/dL (7-18); eGFR NON AFRICAN AMERICAN > 90 mL/min (90-120)
--- NOTE | 2017-04-10 06:08 | NUR ---
MAGNESIUM THIS AM IS 1.6. MAG 2 GM IVPB STARTED PER ELECTROLYTE PROTOCOL
--- NOTE | 2017-04-10 07:27 | NUR ---
AM ROUNDING DONE WITH PATIENT APPEARING TO BE ALSEEP. ON EP, LAB VALUES ARE GOOD. NPO STATUS AT PRESENT TIME FOR BRONCH TODAY. ON 2L PER NC. ON HEART MONITOR SHOWING SR, HR 95.
--- NOTE | 2017-04-10 07:57 | NUR ---
RIGHT POSTERIOR BACK DRESSING FROM PREVIOUS THORACENTHSIS REMOVED. SITE IS CLEAN AND DRY.
[2017-04-10 08:18] VITALS: BP 108/65
[2017-04-10 11:15] LABS: HEPATITIS C ANTIBODY 0.1 (0.0-0.9)
[2017-04-10 11:15] LABS: ANA REFLEX - DIRECT Negative (Negative)
[2017-04-10 11:44] VITALS: BP 101/58
--- NOTE | 2017-04-10 12:46 | NUR ---
PER MIKE WITH RT, I MAY GIVE THE PHENERGAN IM I DO NOT GIVE IV PHENERGAN.
--- NOTE | 2017-04-10 12:57 | NUR ---
PRE-OP MEDS OF PHENRGAN AND MORPHINE GIVEN ORDERED EXCEPT I GAVE IM PHENERGAN TO RIGHT HIP.
--- NOTE | 2017-04-10 12:59 | NUR ---
TO R.T. FOR BRONCH. VIA BED.
--- NOTE | 2017-04-10 13:56 | NUR ---
Nutrition follow-up: Pt NPO at this time for bronch PO intake of regular diet has been ~100% of most meals Labs reviewed Wt: 227# PO intake good at this time RDN following.
--- NOTE | 2017-04-10 14:13 | NUR ---
RETURNS FROM BRONCH WITH IV INFUSING AT 10 CC/HR. MARILYNN WAS SUPPOSE TO INFUSE OVER 4 HOURS WHICH I HAD MADE RT AWARE OF. HOB AT 30 DEGREES. NPO X 1 HOURS.
[2017-04-10 19:00] VITALS: BP 130/70
--- NOTE | 2017-04-10 19:57 | NUR ---
PATIENT RESTING IN BED WITH NO VISIBLE SIGNS OF DISTRESS. BED IN LOWEST POSITION AND CALL LIGHT WITHIN REACH. ENCOURAGED THE PATIENT TO CALL IF SHE HAS NEEDS.
[2017-04-11] VITALS: BP 159/73
[2017-04-11 04:00] VITALS: BP 152/71
[2017-04-11 05:47] LABS: BASOPHILS 0.2 % (0-2); EOSINOPHILS 2.3 % (0-7); HEMATOCRIT 28.7 % (36.0-48.0); IMMATURE GRANULOCYTES 0.7 % (0-5); LYMPHOCYTES 20.1 % (15-50); MCH 31.1 pg (26.0-34.0); MCHC 31.4 g/dL (31.0-37.0); MCV 99.3 fL (80.0-100.0); MEAN PLATELET VOLUME 10.8 fL (7.4-10.4); MONOCYTES 13.6 % (2-11); NEUTROPHILS 63.1 % (40-80); PLATELET COUNT 217 10x3/uL (130-400); RBC 2.89 10x6/uL (4.00-5.40); RDW 14.5 % (11.5-14.5); WBC 10.9 10x3/uL (4.8-10.8)
[2017-04-11 06:02] LABS: CALC OSMOLALITY 274 mosm/kg (275-300); CALCIUM 8.3 mg/dL (8.5-10.1); CARBON DIOXIDE 28.6 mmol/L (21.0-32.0); CHLORIDE - SERUM 102 mmol/L (98-107); CREATININE - SERUM 0.6 mg/dL (0.6-1.3); GLUCOSE 133 mg/dL (74-106); POTASSIUM - SERUM 3.8 mmol/L (3.5-5.1); SODIUM 137 mmol/L (136-145); UREA NITROGEN 10 mg/dL (7-18); eGFR NON AFRICAN AMERICAN > 90 mL/min (90-120)
--- NOTE | 2017-04-11 07:00 | NUR ---
RECEIVED REPORT. ASSUMED CARE OF PATIENT. CALL LIGHT WITHIN REACH. PATIENT WITH EYES CLOSED. EASILY AROUSED. RESP EVEN AND UNLABORED. DENIES NEEDS AT THIS TIME. NO DISTRESS. IV ABT INFUSING ORDERED AT THIS TIME.
--- NOTE | 2017-04-11 08:01 | NUR ---
TB SKIN TEST TO RIGHT FOREARM NEGATIVE @ 48 HOURS.
[2017-04-11 08:31] VITALS: BP 128/74
[2017-04-11 12:33] VITALS: BP 150/72
--- NOTE | 2017-04-11 13:28 | NUR ---
MEDICATED FOR PAIN AT THIS TIME. COMPLAIN OF BACK PAIN.
[2017-04-11 16:30] VITALS: BP 150/70
--- NOTE | 2017-04-11 18:40 | NUR ---
PATIENT SITTING IN BED, FAMILY AT BEDSIDE. CALL LIGHT WITHIN REACH. NO DISTRESS. DENIES NEEDS.
[2017-04-11 19:08] LABS: ACID FAST SMEAR Negative (()); AFB SPECIMEN PROCESSING Concentration (())
--- NOTE | 2017-04-11 19:25 | NUR ---
ALERT/AWAKE TALKING TO VISITORS. IV IN L FA INTACT WITH NS INFUSING AT 10ML/HR. HAS 02 AT 2L/NC. RR 20 EVEN U/L. TELEMETRY SHOWS [address] DENIES ANY NEEDS.
[2017-04-11 20:00] VITALS: BP 129/71
--- NOTE | 2017-04-11 21:50 | NUR ---
ADMIN SCHED MEDS AND TRAMADOL 50MG PO PER REQUEST FOR C/O BACK PAIN. REQUESTED DOOR CLOSED TO SLEEP.
--- NOTE | 2017-04-12 01:00 | NUR ---
REC BOBBY TX. REQUESTED CUP OF ICE.
[2017-04-12 04:00] VITALS: BP 125/69
[2017-04-12 06:10] LABS: HEMOGLOBIN 9.4 g/dL (12-16); MCH 32.2 pg (26.0-34.0); MCHC 32.4 g/dL (31.0-37.0); MCV 99.3 fL (80.0-100.0); MEAN PLATELET VOLUME 10.7 fL (7.4-10.4); RBC 2.92 10x6/uL (4.00-5.40); RDW 14.3 % (11.5-14.5); WBC 9.5 10x3/uL (4.8-10.8)
[2017-04-12 06:17] LABS: APTT 29.2 SECONDS (22.8-39.4); INR 1.09 (0.85-1.17)
[2017-04-12 06:32] LABS: ALBUMIN 1.9 g/dL (3.4-5.0); ALKALINE PHOSPHATASE 64 U/L (46-116); ALT (SGPT) 11 U/L (10-68); BILIRUBIN - TOTAL 0.49 mg/dL (0.2-1.3); CALC OSMOLALITY 278 mosm/kg (275-300); CALCIUM 8.5 mg/dL (8.5-10.1); CARBON DIOXIDE 29.9 mmol/L (21.0-32.0); CHLORIDE - SERUM 104 mmol/L (98-107); CREATININE - SERUM 0.7 mg/dL (0.6-1.3); GLUCOSE 106 mg/dL (74-106); PROTEIN - SERUM 6.1 g/dL (6.4-8.2); SODIUM 141 mmol/L (136-145); UREA NITROGEN 8 mg/dL (7-18); eGFR NON AFRICAN AMERICAN > 90 mL/min (90-120)
[2017-04-12 06:34] LABS: POTASSIUM - SERUM 3.2 mmol/L (3.5-5.1)
--- NOTE | 2017-04-12 07:00 | NUR ---
RECEIVED REPORT. ASSUMED CARE OF PATIENT. CALL LIGHT WITHIN REACH. PATIENT RESTING IN BED WITH EYES OPEN. PATIENT STATES THAT SHE IS NERVOUS ABOUT TOMORROW MORNING. INFORMED PATIENT THAT THIS CONTINUITY PERSON WOULD MD AWARE OF ANXIENTY. IV FLUIDS INFUSING AT KVO RATE. NO DISTRESS. DENIES PAIN.
[2017-04-12 08:00] VITALS: BP 157/79
[2017-04-12 11:31] VITALS: BP 146/74
[2017-04-12 11:35] LABS: APPEARANCE CLEAR (CLEAR); BILIRUBIN NEGATIVE (NEGATIVE); COLOR STRAW (YELLOW); GLUCOSE NEGATIVE (NEGATIVE); KETONE NEGATIVE (NEGATIVE); LEUKOCYTE ESTERASE NEGATIVE (NEGATIVE); NITRITE NEGATIVE (NEGATIVE); PROTEIN NEGATIVE (NEGATIVE); SPECIFIC GRAVITY 1.005 (1.005-1.020); UROBILINOGEN NORMAL (NORMAL)
[2017-04-12 15:12] VITALS: BP 142/72
--- NOTE | 2017-04-12 18:31 | NUR ---
RESTING IN BED WITH EYES OPEN. RESP EVEN AND UNLABORED. NO DISTRESS. CALL LIGHT WITHIN REACH. DENIES NEEDS.
--- NOTE | 2017-04-12 20:00 | NUR ---
RESUMED CARE OF PT, LYING IN BED RESPIRATIONS EVEN AND UNLABORED ON 2LPM VIA NC. [address] ON TELEMETRY. LEFT FOREARM INFUSING NS @ 10. PLAN OF CARE DISCUSSED. CALL LIGHT IN REACH. SEE NURSE ASSESSMENT. WILL CONTINUE TO MONITOR.
[2017-04-12 22:00] VITALS: BP 115/56
[2017-04-13] VITALS (27 sets, daily range): BP systolic 106–137; BP diastolic 58–80
--- NOTE | 2017-04-13 00:24 | NUR ---
OUT OF BED TO SHOWER. LINENS CHANGED AND HIBICLENSE DONE. WILL CONTINUE TO MONITOR.
[2017-04-13 06:12] LABS: BASOPHILS 0.3 % (0-2); EOSINOPHILS 2.5 % (0-7); HEMATOCRIT 30.1 % (36.0-48.0); HEMOGLOBIN 9.5 g/dL (12-16); IMMATURE GRANULOCYTES 0.7 % (0-5); LYMPHOCYTES 23.7 % (15-50); MCHC 31.6 g/dL (31.0-37.0); MCV 98.4 fL (80.0-100.0); MEAN PLATELET VOLUME 10.3 fL (7.4-10.4); MONOCYTES 10.8 % (2-11); PLATELET COUNT 300 10x3/uL (130-400); RBC 3.06 10x6/uL (4.00-5.40); RDW 14.2 % (11.5-14.5); WBC 9.4 10x3/uL (4.8-10.8)
[2017-04-13 06:25] LABS: CALC OSMOLALITY 283 mosm/kg (275-300); CALCIUM 9.1 mg/dL (8.5-10.1); CARBON DIOXIDE 29.1 mmol/L (21.0-32.0); CHLORIDE - SERUM 104 mmol/L (98-107); CREATININE - SERUM 0.7 mg/dL (0.6-1.3); GLUCOSE 152 mg/dL (74-106); POTASSIUM - SERUM 3.5 mmol/L (3.5-5.1); SODIUM 142 mmol/L (136-145); UREA NITROGEN 7 mg/dL (7-18); eGFR NON AFRICAN AMERICAN > 90 mL/min (90-120)
--- NOTE | 2017-04-13 06:40 | NUR ---
PREOP MEDS GIVEN AND SENT TO OR.
--- NOTE | 2017-04-13 07:22 | NUR ---
PATIENT HAS PIERCING IN LIP, NOSE AND CHEEK. PATIENT STATES THE CHEEK PIERCING IS PERMANENT AND SHE IS UNABLE TO REMOVE THE LIP AND NOSE PIERCINGS. DR FIELDS DISCUSSED AT LENGTH THE REASONS FOR REMOVAL OF PIERCINGS INCLUDING DANGER OF CAUTERY BURN, TEARING OF LIP AND/OR NOSE DURING THE COURSE OF THE PROCEDURE IF CAUGHT IN DRAPES/INSTRUMENTS. IN ADDITION, HOSPITAL ASSUMES NO RESPONSIBILITY IF THE JEWELRY IS LOST OR BROKEN.
[2017-04-13 11:10] LABS: FUNGUS MYCOLOGY CULTURE Preliminary report (())
--- NOTE | 2017-04-13 11:24 | NUR ---
PT ARRIVED BY BED TO ROOM. SWITCHED TO ICU MONITORS. VSS AT THIS TIME. EPIDURAL INTACT AND INFUSING AT 7cc/HR WITH A 4cc BOLUS PRN Q 15 MIN. PT DENIES PAIN AT THIS TIME.
--- NOTE | 2017-04-13 12:20 | NUR ---
DR. GARCIA AT BEDSIDE WITH FAMIILY. UPDATED THEM ON PT'S STATUS.
[2017-04-13 12:56] LABS: FUNGUS STAIN Final report (())
--- NOTE | 2017-04-13 14:32 | NUR ---
PT PULLING 750-1000 ON INCENTIVE SPIROMETER
--- NOTE | 2017-04-13 16:20 | NUR ---
DR. GARCIA NOTIFIED OF PT'S TEMP 39.0 ON CRITICOR. ORDERS RECEIVED. FAN IN ROOM. COVERS OFF DOWN TO SHEET.
--- NOTE | 2017-04-13 19:15 | NUR ---
REC'D TO CARE, UNDERWRITING ASSISTANT PER FLOWSHEET. PT LYING L SIDE, AWAKENS EASILY. R LAT CT X 2 TO 20CM SXN, SMALL AMT SEROSANGUINOUS DRAINAGE NOTED, NO AIR LEAK. IVF INFUSING TO R DLSC, DSG C/D/I. EPIDURAL PER FLOWSHEET, SECURED, PT DENIES PAIN. ALARMS ON AND C/L IN REACH.
--- NOTE | 2017-04-13 21:10 | NUR ---
NO VISITORS. PT AWAKE, USING I.S. AND FLUTTER INDEPENDENTLY, GOOD COUGH. C/L IN REACH.
--- NOTE | 2017-04-13 22:56 | NUR ---
JERRY WNL. RT AT BS FOR IPPB/RESP TX. SEE REASSESSMENT.
[2017-04-14] VITALS (24 sets, daily range): BP systolic 104–138; BP diastolic 60–76
--- NOTE | 2017-04-14 01:10 | NUR ---
PT REPOSITIONED UP IN BED TO L SIDE. GOOD COUGH, COOPERATIVE, DENIES NEEDS.
--- NOTE | 2017-04-14 03:07 | NUR ---
REASSESSMENT PER FLOWSHEET, NO ACUTE CHANGES. GIVEN FEW ICE CHIPS PER REQUEST. C/L IN REACH. ALARMS ON.
--- NOTE | 2017-04-14 03:30 | NUR ---
PCXR DONE. PT C/O R SIDE PAIN AFTER XRAY - PRN DOSE PER EPIDURAL - WILL CONT CLOSE MONITORING - CT DSG C/D/I.
--- NOTE | 2017-04-14 03:50 | NUR ---
PT REPORTS PAIN 11/14 - "MUCH BETTER NOW".
[2017-04-14 06:09] LABS: BASOPHILS 0.1 % (0-2); EOSINOPHILS 0 % (0-7); HEMOGLOBIN 8.6 g/dL (12-16); IMMATURE GRANULOCYTES 0.4 % (0-5); LYMPHOCYTES 11.1 % (15-50); MCHC 32.8 g/dL (31.0-37.0); MCV 97.8 fL (80.0-100.0); MEAN PLATELET VOLUME 10.5 fL (7.4-10.4); MONOCYTES 7.4 % (2-11); PLATELET COUNT 333 10x3/uL (130-400); RBC 2.68 10x6/uL (4.00-5.40); RDW 14.2 % (11.5-14.5)
--- NOTE | 2017-04-14 06:15 | NUR ---
BATH AND LINEN CHANGE DONE. PT REPOSITIONED UP IN BED, HEELS BRIDGED. ALARMS ON AND C/L IN REACH.
[2017-04-14 06:18] LABS: HEMATOCRIT 26.3 % (36.0-48.0); MCH 32.2 pg (26.0-34.0); WBC 15.1 10x3/uL (4.8-10.8)
[2017-04-14 06:28] LABS: ALBUMIN 1.8 g/dL (3.4-5.0); ALKALINE PHOSPHATASE 60 U/L (46-116); ALT (SGPT) 15 U/L (10-68); BILIRUBIN - TOTAL 0.36 mg/dL (0.2-1.3); CALC OSMOLALITY 283 mosm/kg (275-300); CALCIUM 8.6 mg/dL (8.5-10.1); CARBON DIOXIDE 27.7 mmol/L (21.0-32.0); CHLORIDE - SERUM 105 mmol/L (98-107); CREATININE - SERUM 0.6 mg/dL (0.6-1.3); GLUCOSE 175 mg/dL (74-106); POTASSIUM - SERUM 3.7 mmol/L (3.5-5.1); PROTEIN - SERUM 6.2 g/dL (6.4-8.2); SODIUM 141 mmol/L (136-145); eGFR NON AFRICAN AMERICAN > 90 mL/min (90-120)
[2017-04-14 06:33] LABS: UREA NITROGEN 10 mg/dL (7-18)
--- NOTE | 2017-04-14 06:45 | NUR ---
DR. GARCIA NOTIFIED OF NEW MICRO RESULTS AND PT TO IN ISOLATION. DR. SANDOVAL PAGED.
--- NOTE | 2017-04-14 06:58 | NUR ---
DR. MALDONADO NOTIFIED OF CONSULT.
--- NOTE | 2017-04-14 07:15 | NUR ---
REPORT RECIEVED FROM RAPID EXTRACTOR OPERATOR NURSE. PT RESTING IN BED QUIETLY. ASSESSMENT COMPLETE PER FLOWSHEET. REFER FOR DETAILS.
--- NOTE | 2017-04-14 09:00 | NUR ---
AT BEDSIDE. UPDATE PROVIDED.
--- NOTE | 2017-04-14 09:35 | NUR ---
NUTRITION MONITORING & EVAL CHART REVIEWED. PT IN ISOLATION S/P PROCEDURE. DIABETIC DIET RESUMED. WILL CONTINUE TO PROVIDE DIET, MONITOR PO INTAKE. RD FOLLOWING
--- NOTE | 2017-04-14 11:00 | NUR ---
REASSESSMNET COMPLETE PER FLOWSHEET. NO CHANGES NOTED AT THIS TIME. WILL CONT TO ASSESS FOR CHANGES. CALL LIGHT IN REACH.
--- NOTE | 2017-04-14 13:00 | NUR ---
PT REPOSITIONED UP IN BED TO L SIDE. GOOD COUGH, COOPERATIVE, DENIES NEEDS.
--- NOTE | 2017-04-14 15:00 | NUR ---
REASSESSMENT COMPLETE PER FLOWSHEET. DENIES NEEDS AT THIS TIME. WILL CONT TO ASSESS. FRESH ICE WATER PLACED ON BST.
--- NOTE | 2017-04-14 17:30 | NUR ---
BLOOD CULTURES DRAWN FROM CENTRAL LINE AND ARTERIAL LINE PER DR. JO'S ORDERS.
[2017-04-14 18:09] LABS: ACID FAST SMEAR Negative (()); AFB SPECIMEN PROCESSING Tissue Grinding (())
--- NOTE | 2017-04-14 19:30 | NUR ---
REPORT RECVD. CARE ASSUMED. INITIAL ASSMNT COMPLETED. SEE FLOWSHEET FOR ALL FINDINGS. AWAKE AND AOX4. RESP UNLABORED. SHALLOW. LUNGS SOUNDS DIM. SPO2 95% ON O2 AT 2 LPM NC. GOOD EFFORT WITH INCENTIVE. PULLS 1500. SR ON THE MONITOR. PULSES PALP. RIGHT RADIAL A LINE ZEROED AND BALANCED. GOOD WAVE FORM SEEN. SYS B/P WITHIN PARAMETERS. TEDS/SCDS ON. ABD SOFT, ROUND WITH HYPO BS X4. REPORTS FLATUS. F/C PATENT TO CRITICORE. AFEBRILE. TURNED AND REPOSITIONED WITH GOOD WAVE FORM SEEN. AIR OVERLAY IN USE FOR SKIN INTEGRITY. EPIDURAL INTACT AND INFUSING FOR PAIN CONTROL. HOB UP. C/L AND ANIMAL CARE SPECIALIST IN REACH. CONT CURRENT POC.
--- NOTE | 2017-04-14 21:30 | NUR ---
HS MEDS GIVEN. FAMILY AT BEDSIDE. UPDATE GIVEN. VSS. TURNED AND REPOSITIONED. COUGH/DB AND INCENTIVE DONE. GOOD EFFORT. HOB UP. C/L IN REACH. DENIES NEEDS. CONT CURRENT POC.
--- NOTE | 2017-04-14 23:30 | NUR ---
REASSESSMENT COMPLETED. SEE FLOWSHEET FOR ALL FINDINGS. RESTING. AOX4. RESP UNLABORED. SHALLOW. LUNGS SOUNDS DIM. SPO2 95% ON O2 AT 2 LPM NC. GOOD EFFORT WITH INCENTIVE. PULLS 1500. SR ON THE MONITOR. PULSES PALP. RIGHT RADIAL A LINE ZEROED AND BALANCED. GOOD WAVE FORM SEEN. SYS B/P WITHIN PARAMETERS. TEDS/SCDS ON. ABD SOFT, ROUND WITH HYPO BS X4. REPORTS FLATUS. F/C PATENT TO CRITICORE. AFEBRILE. TURNED AND REPOSITIONED WITH GOOD WAVE FORM SEEN. AIR OVERLAY IN USE FOR SKIN INTEGRITY. EPIDURAL INTACT AND INFUSING FOR PAIN CONTROL. HOB UP. C/L AND GOLF STARTER AND RANGER IN REACH. CONT CURRENT POC.
[2017-04-15] VITALS (25 sets, daily range): BP systolic 101–140; BP diastolic 53–76
--- NOTE | 2017-04-15 01:00 | NUR ---
TURNED AND REPOSITIONED. CPUGH/DB AND INCENTIVE DONE WITH GOOD EFFORT. PULLS 1500. VSS. SR ON THE MONITOR, EPIDURAL INTACT AND PROVIDING PAIN CONTROL. HOB UP. C/L IN REACH. CONT CURRENT POC.
--- NOTE | 2017-04-15 03:30 | NUR ---
REASSESSMENT COMPLETED. SEE FLOWSHEET FOR ALL FINDINGS. RESTING. AOX4. RESP UNLABORED. SHALLOW. LUNGS SOUNDS DIM. SPO2 95% ON O2 AT 2 LPM NC. GOOD EFFORT WITH INCENTIVE. PULLS 1500. SR ON THE MONITOR. PULSES PALP. RIGHT RADIAL A LINE INTACT WITH GOOD WAVE FORM SEEN. SYS B/P WITHIN PARAMETERS. TEDS/SCDS ON. ABD SOFT, ROUND WITH HYPO BS X4. REPORTS FLATUS. F/C PATENT TO CRITICORE. AFEBRILE. TURNED AND REPOSITIONED WITH GOOD WAVE FORM SEEN. AIR OVERLAY IN USE FOR SKIN INTEGRITY. EPIDURAL INTACT AND INFUSING FOR PAIN CONTROL. HOB UP. C/L AND GASOLINE TRUCK CRANE OPERATOR IN REACH. CONT CURRENT POC.
--- NOTE | 2017-04-15 05:00 | NUR ---
TURNED AND REPOSITIONED. VSS. DENIES NEEDS. HOB UP. C/L AND MVA REACTOR OPERATOR HEAD IN REACH. CONT CURRENT POC.
[2017-04-15 06:23] LABS: BASOPHILS 0.3 % (0-2); HEMATOCRIT 23.7 % (36.0-48.0); HEMOGLOBIN 7.6 g/dL (12-16); IMMATURE GRANULOCYTES 0.4 % (0-5); LYMPHOCYTES 26.1 % (15-50); MCH 32.1 pg (26.0-34.0); MCHC 32.1 g/dL (31.0-37.0); MEAN PLATELET VOLUME 10.2 fL (7.4-10.4); NEUTROPHILS 60.2 % (40-80); PLATELET COUNT 318 10x3/uL (130-400); RBC 2.37 10x6/uL (4.00-5.40); RDW 14.5 % (11.5-14.5)
[2017-04-15 06:25] LABS: WBC 9.7 10x3/uL (4.8-10.8)
[2017-04-15 06:36] LABS: ALBUMIN 1.7 g/dL (3.4-5.0); ALKALINE PHOSPHATASE 50 U/L (46-116); ALT (SGPT) 12 U/L (10-68); BILIRUBIN - TOTAL 0.37 mg/dL (0.2-1.3); CALCIUM 8.2 mg/dL (8.5-10.1); CARBON DIOXIDE 30.9 mmol/L (21.0-32.0); CHLORIDE - SERUM 108 mmol/L (98-107); CREATININE - SERUM 0.7 mg/dL (0.6-1.3); POTASSIUM - SERUM 3.5 mmol/L (3.5-5.1); PROTEIN - SERUM 5.7 g/dL (6.4-8.2); SODIUM 144 mmol/L (136-145); eGFR NON AFRICAN AMERICAN > 90 mL/min (90-120)
[2017-04-15 06:41] LABS: CALC OSMOLALITY 287 mosm/kg (275-300); GLUCOSE 121 mg/dL (74-106); UREA NITROGEN 13 mg/dL (7-18)
--- NOTE | 2017-04-15 07:15 | NUR ---
REPORT RECIEVED FROM NUCLEAR MEDICINE SUPERVISOR NURSE. PT RESTING IN BED QUIETLY. NO S/SX OF ACUTE DISTRESS NOTED AT THIS TIME. FULL ASSESSMENT COMPLETE PER FLOWSHEET. CALL LIGHT IN REACH. BED IN LOW POSITION. WILL CONT TO ASSESS FOR CHANGES. REFER TO FLOWSHEET FOR DETAILED ASSESSMENT.
--- NOTE | 2017-04-15 09:00 | NUR ---
FAMILY AT BEDSIDE. UPDATE PROVIDED.
--- NOTE | 2017-04-15 09:45 | NUR ---
NUTRITION MONITORING & EVAL CHART REVIEWED, NURSING REPORTS PT WITH GOOD PO INTAKE ADA DIET. REMAINS IN ISOLATION. RD FOLLOWING
--- NOTE | 2017-04-15 09:46 | NUR ---
K+ REPLACED PER ELECTROLYTE PROTOCOL. WILL RECHECK SERUM K+ IN FOUR HOURS.
--- NOTE | 2017-04-15 11:00 | NUR ---
REASSSESSMENT COMPLETE PER FLOWSHEET. NO CHANGES NOTED AT THIS TIME. PT STATES HER PAIN IS WELL CONTROLLED WITH FENTANYL. MINIMAL CHEST TUBE OUTPUT NOTED THIS SHIFT. OUTPUTS RECORDED HOURLY. INSTRUCTED ON USE OF IS EVERY HOUR. PT IS ABLE TO PULL [id number]. ALSO USING FLUTTER VALVE EVERY HOUR. CALL LIGHT IN REACH. BED IN LOW POSITION. WILL CONT TO ASSESS.
--- NOTE | 2017-04-15 13:00 | NUR ---
TURNED AND REPOSITIONED FOR COMFORT. EPIDURAL DRESSING C/D/I. WILL CONT TO ASSESS.
[2017-04-15 13:17] LABS: FUNGUS STAIN Final report (())
--- NOTE | 2017-04-15 13:30 | NUR ---
DR. FIELDS AT BEDSIDE TO ASSESS EPIDUARAL AND VOLUME OF MEDICATIONS BAG. FENTANYL BAG CHANGED AND WASTED WITH DR. FIELDS. RECORD OF WASTE PLACED IN CHART.
--- NOTE | 2017-04-15 15:00 | NUR ---
REASSESSMENT COMPLETE. NO CHANGES NOTED AT THIS TIME. WILL CONT TO ASSESS. FRESH ICE WATER TAKEN TO BST.
--- NOTE | 2017-04-15 17:00 | NUR ---
SON AT BEDSIDE. UPDATE PROVIDED
--- NOTE | 2017-04-15 19:00 | NUR ---
REPORT RECIEVED. ASSESSMENT COMPLETE PER FLOW SHEET. VSS. PT AWAKE ALERT ORIENTED X3. O2 VIA NC 2L O2 SAT 98% RR 16 NON LABORED SHALLOW. RUL RML BARB CLEAR. BILAT LOWER LOBES DEMINISHED. HEART S1S2 HR 87 NSR. BILAT R CHEST TUBES TO 20 CM SUCTION NO AIR LEAK NOTED MINIMAL SEROUS DRAINAGED NOTED. BS ACTIVE X4 ABD DISTENDED SOFT BS ACTIVE X4. R RADIAL A LINE PATENT WITH GOOD WAVE FORM WRIST PROTECTOR ON EXTREMETY PINK WITH GOOD SENSATION BP 131/87. R RADIAL PULSE PALP L BRACHIAL PULSE PALP. BILAT PEDAL PULSES PALP +2. TRACE EDEMA NOTED BILAT UPPER EXTREMETIES GENERALIZED EDEMA NOTED BILAT LOWER EXTREMETIES. ELEVATED ON PILLOWS. BILAT TEDS SCD'S ON SKIN ASSESSMENT COMPLETE NO NEW FINDINGS. LUNA PATENT THAO URINE NOTED. EPIDURAL PATENT INTACT PT ABLE TO MOVE EXTREMTIES X4. DENIES PAIN AT THIS TIME. REPOSITIONED ON L SIDE. VSS. WILL CONTINUE TO MONITOR
--- NOTE | 2017-04-15 21:08 | NUR ---
2100 MEDS ADM DENIES NEEDS. REPOSITIONED ON L SIDE. VSS. SLEEPIGN COMFORTABLY. WILL CONTINUE TO MONITOR
--- NOTE | 2017-04-15 23:10 | NUR ---
REASSESSMENT COMPLETE PER FLOW SHEET. VSS. NO NEW CHANGES. WILL CONTINUE TO MONITOR
[2017-04-16] VITALS (24 sets, daily range): BP systolic 103–137; BP diastolic 63–77
--- NOTE | 2017-04-16 01:40 | NUR ---
PT RESTING COMFORTABLY. REPOSITIONED ON L SIDE FOR COMFORT. DENIES FURTHER NEEDS. WILL CONTINUE TO MONITOR
--- NOTE | 2017-04-16 03:03 | NUR ---
REASSESSMENT COMPMLET EPER FLOW SHEET. VSS. NO NEW CHANGES. RADIOLOGY AT BEDSIDE. WILL CONTINUE TO [place]
--- NOTE | 2017-04-16 05:09 | NUR ---
RESP AT BEDSIDE. NO NEW CHANGES. VSS. ABGS OBTAINED REVIEWED NO INTERVENTION AT THIS TIME. WILL CONTINUE TO MONITOR
[2017-04-16 06:14] LABS: HEMATOCRIT 24.6 % (36.0-48.0); HEMOGLOBIN 7.9 g/dL (12-16); MCH 31.7 pg (26.0-34.0); MCHC 32.1 g/dL (31.0-37.0); MCV 98.8 fL (80.0-100.0); RBC 2.49 10x6/uL (4.00-5.40); RDW 14.2 % (11.5-14.5); WBC 8.5 10x3/uL (4.8-10.8)
[2017-04-16 06:36] LABS: ALBUMIN 1.8 g/dL (3.4-5.0); ALKALINE PHOSPHATASE 54 U/L (46-116); ALT (SGPT) 14 U/L (10-68); CALC OSMOLALITY 281 mosm/kg (275-300); CALCIUM 8.9 mg/dL (8.5-10.1); CARBON DIOXIDE 33.7 mmol/L (21.0-32.0); CHLORIDE - SERUM 102 mmol/L (98-107); CREATININE - SERUM 0.7 mg/dL (0.6-1.3); GLUCOSE 127 mg/dL (74-106); POTASSIUM - SERUM 3.4 mmol/L (3.5-5.1); PROTEIN - SERUM 6.1 g/dL (6.4-8.2); SODIUM 141 mmol/L (136-145); UREA NITROGEN 9 mg/dL (7-18); eGFR NON AFRICAN AMERICAN > 90 mL/min (90-120)
--- NOTE | 2017-04-16 19:00 | NUR ---
REPORT RECIEVED. ASSESSMENT COMPLETE PER FLOW SHEET. VSS. PT AWAKE ALERT ORIENTED X3. EYES PERRLA 3MM BRISK. O2 VIA NC 2L O2 SAT 98% RR 16 REG NON LABORED. RUL RML BARB CLEAR BILAT LOWER LOBES DEMINISHED. R CHEST TUBES X2 NOTED MINIMAL SEROUS DRAINAGE. DRSG CDI. HEART S1S2 HR 98 NSR. BP VIA L RADIAL A LINE WITH GOOD WAVEFORM WRIST PROTECTOR ON EXTREMETY PINK WITH GOOD SENSATION BP 126/76. BS ACTIVE X4 ABD DISTENDED STATES PASSING GAS AT THIS TIME. GENERALIZED EDEMA NOTED BILAT LOWER EXTREMETIES ELEVATED ON PILLOWS SCD'S TEDS ON. LUNA PATENT THAO URINE NOTED. EPIDURAL PATENT DRSG CDI DENIES PAIN OR NEEDS AT THIS TIME. VSS. WILL CONTINUE TO MONITOR
--- NOTE | 2017-04-16 21:00 | NUR ---
2100 MEDS ADM WITHOUT DIFFICULTY. DENIES NEEDS. VSS. WILL CONTINUE TO MONITOR
--- NOTE | 2017-04-16 22:03 | NUR ---
GIVEN ICE WATER PER REQUEST. REPOSITIONED UP IN BED ON L SIDE FOR COMFORT. DENIES FURTHER NEEDS.
--- NOTE | 2017-04-16 23:00 | NUR ---
REASSESSMENT COMPLETE PER FLOW SHEET. VSS. NO NEW CHANGES. RESTING COMFORTABLY WILL CONTINUE TO MONITOR
[2017-04-17] VITALS (22 sets, daily range): BP systolic 103–125; BP diastolic 62–84
--- NOTE | 2017-04-17 00:50 | NUR ---
K+ REDRAW REVIEWED NO INTERVENTION NEEDED AT THIS TIME. WILL CONTINUE TO MONITOR
--- NOTE | 2017-04-17 03:02 | NUR ---
REASSESSMENT COMPLET EPER FLOW SHEET. VSS. NO NEW CHANGES. WILL CONTINUE TO MONITOR
[2017-04-17 06:09] LABS: BASOPHILS 0.1 % (0-2); EOSINOPHILS 5.2 % (0-7); HEMATOCRIT 26.1 % (36.0-48.0); HEMOGLOBIN 8.4 g/dL (12-16); IMMATURE GRANULOCYTES 0.5 % (0-5); LYMPHOCYTES 26.6 % (15-50); MCH 31.7 pg (26.0-34.0); MCHC 32.2 g/dL (31.0-37.0); MCV 98.5 fL (80.0-100.0); MEAN PLATELET VOLUME 9.7 fL (7.4-10.4); MONOCYTES 9.7 % (2-11); NEUTROPHILS 57.9 % (40-80); PLATELET COUNT 357 10x3/uL (130-400); RBC 2.65 10x6/uL (4.00-5.40); RDW 14.4 % (11.5-14.5); WBC 7.8 10x3/uL (4.8-10.8)
[2017-04-17 06:18] LABS: CALC OSMOLALITY 279 mosm/kg (275-300); CALCIUM 9.2 mg/dL (8.5-10.1); CARBON DIOXIDE 33.6 mmol/L (21.0-32.0); CHLORIDE - SERUM 102 mmol/L (98-107); CREATININE - SERUM 0.6 mg/dL (0.6-1.3); GLUCOSE 116 mg/dL (74-106); POTASSIUM - SERUM 3.6 mmol/L (3.5-5.1); SODIUM 141 mmol/L (136-145); UREA NITROGEN 8 mg/dL (7-18); eGFR NON AFRICAN AMERICAN > 90 mL/min (90-120)
--- NOTE | 2017-04-17 10:02 | NUR ---
NUTRITION MONITORING & EVAL CHART REVIEWED, PT REMAINS IN ISOLATION. TOLERATING ADA DIET WITH GOOD PO INTAKE. RD FOLLOWING
--- NOTE | 2017-04-17 11:00 | EC ---
PATIENT:GRICELDA SANDOVAL DATE OF SERVICE: 03/30/17 SEX: F MEDICAL RECORD: [id number] DATE OF : 70 LOCATION:[facility] D230 AGE OF PATIENT: 46 ADMISSION DATE: 03/30/17 REFERRING PHYSICIAN: INTERPRETING PHYSICIAN: JOSHUA HARTMANN MD ECHOCARDIOGRAM REPORT ECHO CHARGES 4 ECHO COMPLETE CLINICAL DIAGNOSIS: DYSPNEA/PULMONARY HTN ? ECHOCARDIOGRAPHIC MEASUREMENTS (adult normal given) AC root (d.<3.7cm) 3.5 LV Septum d (<1.2 cm> 1.5 Valve Excursion 2.3 LV Septum (systole) 1.9 Left Atria (s.<4.0cm> 4.7 LVPW d(<1.2cm) 1.2 RV (d.<2.3cm) 2.4 LVPW (sytole) 2.0 LV diastole(<5.6CM) 5.9 MV E-F(>70mm/sec) LV systole 4.0 LVOT Diameter 2.4 MV exc.(>10mm) Est.ejection fraction (50-75%) Pericardial Effusion N DOPPLER: LVIT A 118 E 104 LA RVSP 36.0 LVOT 132 AOP1/2T Asc. Ao 171 RVOT 87.0 RA PA 116 AV Gradient Peak 12.0 AV Mean 5.1 AV Area 3.7 MV Gradient Peak 8.4 MV Mean 3.8 MV Area COMMENTS: [employer]:Khushbu Maravilla TAPE# PACS DATE OF SERVICE: 04/03/2017 TWO-DIMENSIONAL ECHOCARDIOGRAM WITH DOPPLER 1. Left ventricular chamber size is within normal limits. Left ventricular systolic function is normal. Overall ejection fraction is estimated at 60 percent. 2. Left atrium is enlarged at 4.7 centimeters. Right atrium and right ventricular chamber sizes are as well mildly dilated. 3. Valvular structures have normal structure and motion. 4. Doppler interrogation reveals mild mitral regurgitation; no other valvular ECHOCARDIOGRAM REPORT [id number] GRICELDA SANDOVAL insufficiency or stenosis. 5. No evidence of pericardial effusion or left ventricular thrombus. 04/16/2017 Edited to enter date of service, [place]. JOSHUA HARTMANN MD at 1100 CC: [id number] DICTATION DATE: 04/03/17 7268 WOOD SETTER: FERNANDA 04/03/17 4112 ADM IN [facility] [address] [id number]
--- NOTE | 2017-04-17 19:15 | NUR ---
RECEIVED CARE OF PT, ASSESSMENT PER FLOWSHEET. PT ALERT AND ORIENTED X 4, ON 2L NC, BREATH SOUNDS DIMINISHED IN BILAT BASES, HR ST AT A RATE OF 101 ON CM, CRITICORE LUNA PATENT AND DRAINING, PPP, RT CHEST DRESSING CDI, RT CT X 2 TO WATERSEAL, SEROUS FLUID DRAINING, DRESSING INTACT. EPIDURAL SECURED, NO S/S LEAKAGE NOTED, BEVELLER OPERATOR BUTTON IN REACH. PT POSITIONED FOR COMFORT, VSS.
--- NOTE | 2017-04-17 21:10 | NUR ---
NO VISITORS PRESENT AT THIS TIME, PT ABLE TO ASSIST WITH REPOSITIONING. EPIDURAL GEOPHYSICAL ENGINEER BUTTON AND CALL LIGHT IN REACH, VSS.
--- NOTE | 2017-04-17 23:15 | NUR ---
REASSESSMENT PER FLOWSHEET, NO ACUTE CHANGES NOTED. PT DENIES ANY NEEDS, VSS.
[2017-04-18] VITALS (24 sets, daily range): BP systolic 97–121; BP diastolic 50–72
--- NOTE | 2017-04-18 01:50 | NUR ---
PT RESTING IN BED WITH EYES CLOSED, VSS, CONT POC.
--- NOTE | 2017-04-18 03:15 | NUR ---
REASSESSMENT PER FLOWSHEET, PT POSITIONED FOR COMFORT, ICE WATER PROVIDED PER REQUEST, VSS.
--- NOTE | 2017-04-18 05:50 | NUR ---
AM LAB DRAWN FROM CVL AND TAKEN TO LAB PER MD ORDER.
[2017-04-18 06:26] LABS: BASOPHILS 0.3 % (0-2); EOSINOPHILS 5.9 % (0-7); HEMATOCRIT 25.5 % (36.0-48.0); HEMOGLOBIN 8.2 g/dL (12-16); IMMATURE GRANULOCYTES 0.4 % (0-5); LYMPHOCYTES 30.1 % (15-50); MCH 31.9 pg (26.0-34.0); MCHC 32.2 g/dL (31.0-37.0); MCV 99.2 fL (80.0-100.0); MONOCYTES 11.4 % (2-11); NEUTROPHILS 51.9 % (40-80); PLATELET COUNT 372 10x3/uL (130-400); RBC 2.57 10x6/uL (4.00-5.40); RDW 14.5 % (11.5-14.5); WBC 7.5 10x3/uL (4.8-10.8)
[2017-04-18 06:33] LABS: CALC OSMOLALITY 282 mosm/kg (275-300); CALCIUM 9.2 mg/dL (8.5-10.1); CARBON DIOXIDE 34.1 mmol/L (21.0-32.0); CHLORIDE - SERUM 103 mmol/L (98-107); CREATININE - SERUM 0.7 mg/dL (0.6-1.3); GLUCOSE 116 mg/dL (74-106); POTASSIUM - SERUM 3.4 mmol/L (3.5-5.1); SODIUM 142 mmol/L (136-145); UREA NITROGEN 10 mg/dL (7-18); eGFR NON AFRICAN AMERICAN > 90 mL/min (90-120)
--- NOTE | 2017-04-18 13:26 | OP ---
PATIENT NAME: GRICELDA SANDOVAL MEDICAL RECORD: [id number] :70 LOCATION:[facility] D.2302 ADMISSION DATE:03/30/17 SURGEON: JOSE FRANCISCO SANDOVAL MD OPERATION DATE: 04/13/17 SURGEON: Jose Francisco Sandoval M.D. ANESTHESIA: General endotracheal by Dr. Sanchez. PROCEDURE: 1. Right mini thoracotomy with decortication of the right lung. 2. Video-assisted thoracoscopy. 3. Pleural decortication of parietal visceral pleura. 4. Culture of right hemithorax. 5. Histology right hemithorax. 6. Pleural drainage. 7. Flexible fiberoptic bronchoscopy. PREOPERATIVE DIAGNOSIS: Enlarging right pleural effusion with atelectasis or trapped lung. 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 INDICATION FOR OPERATION: Enlarging pleural effusion. 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 There was a large amount of solid pleural reaction. Flexible fiberoptic bronchoscopy demonstrated normal tracheal bronchial tree. ESTIMATED BLOOD LOSS: 150 mL. SPECIMENS: Cultures were sent for aerobe, anaerobe, TB, and fungus. Histology sent on the pleural rind. PROCEDURE IN DETAIL: After informed consent, adequate preoperative medication, and evaluation, the patient was brought to the operating room and placed stable in the supine position. After induction of general endotracheal anesthesia and application of appropriate monitoring devices, he was placed and underwent flexible fiberoptic bronchoscopy and placement of a double lumen tube. The patient was then turned in a left lateral decubitus position and the pressure points protected. The right chest was prepped and draped in sterile field utilizing Betadine scrub, alcohol, and Betadine solution. Betadine impregnated drape was also used. A port was placed in the ninth interspace mid axillary line, and a port placed. The fluid was removed, and a scope placed into the right hemithorax. There was a large amount of fibrinous pleural reaction with a small amount of fluid. The fluid was taken for cultures, aerobe, anaerobe, TB, and fungus. Attempts were made to place another port, however, safely another port could not be placed. The Yankauer resector was used to free up the lower lobe pleural reaction, the scope reintroduced and examined. The suction was then placed beside the scope and the chest evacuated as good as possible with still limited vision and need to decorticate the lung which was not possible with the scope. Therefore, the axillary port was opened proximally and distally and dissection carried down to the seventh interspace. The thoracotomy was performed, and the pleural reaction released from the chest wall. Utilizing sharp and blunt dissection, the fibrinous exudative material was removed. The middle and lower lobe OPERATIVE REPORT [id number] GRICELDA SANDOVAL were trapped with a visceral pleural rind. The upper lobe was partially adherent throughout the superior portion of the right hemithorax. A dissection was carried out posteriorly to the upper lobe. Attention was then turned toward the lower and middle lobe. Utilizing sharp and blunt dissection, a decortication was performed with improvement in the inflation of the right middle and lower lobes. This was continued until the lung could fully expand. The specimens were sent for pathology. The chest was then irrigated with copious amounts of antibiotic solution and normal saline. There was no active bleeding. There were no large air leaks. A chest tube was then placed anteriorly and superiorly through the previous camera port and secured. The posterior tube was placed inferiorly and posteriorly. The chest was again irrigated, and instrument and counts and sponge counts were correct times two. Chest was closed in layers utilizing #2 Vicryl pericostal sutures, #1 Vicryl on the muscle, 2-0 Vicryl on the subcutaneous tissue, and skin approximated with 3-0 subcuticular Monocryl. Sterile dressings were applied. The patient was turned in a supine position. Bronchoscopy demonstrated no intrabronchial mucus or blood. The patient was then awakened and transferred to the Cardiovascular-Intensive Care Unit in satisfactory condition. JOSE FRANCISCO SANDOVAL MD at 1326 CC: [id number] DICTATION DATE: 04/13/17 1300 HOMICIDE SQUAD CAPTAIN: JOSE 04/13/17 1538 ADM IN [place] [facility] [id number] [place] [address]
--- NOTE | 2017-04-18 14:38 | NUR ---
DR. MOTA HERE EPIDURAL REMOVED PATIENT TOLERATED WELL. LUNA CATH DC'D. PHYSICAL THERAPY HERE. CHEST TUBES REMOVED PER DR. GARCIA. PATIENT TOLERATED WELL. INCISION INTACT DRESSING RE MOVED. CAN LEAVE OPEN TO AIR PER DR. GARCIA. LIQUID BROWN STOOL.
--- NOTE | 2017-04-18 16:29 | NUR ---
UP ON BEDSIDE COMMODE VOIDE 350 ML YELLOW URINE. TOLERATED FAIR. INSTRUCTED ON MORPHINE AIRCRAFT SKIN BURNISHER. CAN HAVE USE Q 10MIN. TO NOTIFY NURSE IF PAIN MED NOT EFFECTIVE VERBALIZED UNDERSTANDING. DEMONSTRATED PROPER USE OF AIRCRAFT SKIN BURNISHER PUMP.
--- NOTE | 2017-04-18 19:30 | NUR ---
RESUMED CARE OF PT, ASSESSMENT PER FLOWSHEET. HR SR ON CM, CRACKLES AUSCULTATED TO LT UPPER LOBE WITH DIMINISHED BASES, GOOD STRONG COUGH NOTED, SPUTUM NOT SEEN, PULLING AROUND 1000 ON IS. WILL CONT TO ENCOURAGE, MORPHINE EMERGENCY DEPARTMENT RN BUTTON IN REACH AND IS INFUSING VIA RT SC. RT LAT CHEST/BACK INCISION INDIRA, WOUND EDGES WELL APPROXIMATED, PPP. PT DENIES ANY NEEDS AT THIS TIME.
--- NOTE | 2017-04-18 21:05 | NUR ---
NO VISITORS PRESENT AT THIS TIME, PT PULLING [phone] ON IS WITH GOOD INSPIRATORY EFFORT, STRONG COUGH NOTED, NO SPUTUM SEEN. CONT TO ENCOURAGE.
--- NOTE | 2017-04-18 23:15 | NUR ---
REASSESSMENT PER FLOWSHEET, NO ACUTE CHANGES NOTED. PT POSITIONED FOR COMFORT, STATES ADEQUATE PAIN CONTROL WITH MORPHINE, EXPEDITER BUTTON AND CALL LIGHT IN REACH.
[2017-04-19] VITALS (25 sets, daily range): BP systolic 94–119; BP diastolic 60–85
--- NOTE | 2017-04-19 01:00 | NUR ---
PT RESTING IN BED WITH EYES CLOSED, VSS, CONT POC.
--- NOTE | 2017-04-19 04:15 | NUR ---
TO RADIOLOGY FOR PA AND LAT CXR PER ORDER, BACK TO BED AND ICU MONITORS RE-ESTABLISHED, VSS, ICE WATER PER REQUEST, PULLING [phone] ON IS.
[2017-04-19 06:08] LABS: BASOPHILS 0.2 % (0-2); EOSINOPHILS 5.3 % (0-7); HEMATOCRIT 25.5 % (36.0-48.0); HEMOGLOBIN 8.1 g/dL (12-16); IMMATURE GRANULOCYTES 0.6 % (0-5); LYMPHOCYTES 32.4 % (15-50); MCH 31.2 pg (26.0-34.0); MCHC 31.8 g/dL (31.0-37.0); MCV 98.1 fL (80.0-100.0); MONOCYTES 11.9 % (2-11); NEUTROPHILS 49.6 % (40-80); PLATELET COUNT 335 10x3/uL (130-400); RDW 14.1 % (11.5-14.5); WBC 6.4 10x3/uL (4.8-10.8)
[2017-04-19 06:20] LABS: CALC OSMOLALITY 276 mosm/kg (275-300); CALCIUM 8.8 mg/dL (8.5-10.1); CARBON DIOXIDE 32.1 mmol/L (21.0-32.0); CHLORIDE - SERUM 102 mmol/L (98-107); CREATININE - SERUM 0.6 mg/dL (0.6-1.3); GLUCOSE 103 mg/dL (74-106); POTASSIUM - SERUM 3.3 mmol/L (3.5-5.1); SODIUM 139 mmol/L (136-145); UREA NITROGEN 9 mg/dL (7-18); eGFR NON AFRICAN AMERICAN > 90 mL/min (90-120)
--- NOTE | 2017-04-19 16:12 | NUR ---
NAPPING AWAKES EASILY STATES PAIN MEDS EFFECTIVE. LONG USES PUBLICATIONS DISTRIBUTION CLERK. UP TO BSC 3 X. GAIT A LITTLE UNSTEADY. INCISION INTACT NO DRAINAGE OR REDNESS. CHEST TUBE DRESSING DRY AND INTACT. LUNGS CLEAR, GOOD COUGH UNPRODUCTIVE. UP IN CHAIR AND AMBULATED IN UNIT TODAY.
--- NOTE | 2017-04-19 19:26 | NUR ---
VERIFIED DOSE WITH DR. KRISHNAMURTHY CONCERNING ARGATRABAN. HE SAID TO START AT 2 MCG/KG/MIN AND GET PTT PER PROTOCOL.
--- NOTE | 2017-04-19 19:30 | NUR ---
REPORT REC'D AND CARE ASSUMED, REC'D PT RESTING IN BED, WATCHING TV, AWAKE, ALERT, ORIENTED X 3, O2 @ 2 LITERS VIA NC, RDLSCL DRSG CDI WITH PLASMALYTE @ 30CC/HR AND MORPHINE SILK WASHING MACHINE OPERATOR 0.5MG Q10MIN WITH 20MG Q4HR LOCKOUT, PT RATING PAIN "6" ON 0-10 PAIN SCALE, PT STATES " I HAVE NOT PUSHED BY PAIN BUTTON IN AWHILE", SILK WASHING MACHINE OPERATOR IN REACH, RIGHT LATERAL INCISION OPEN TO AIR EXTENDING TO BACK, NO REDNESS OR DRAINAGE NOTED, RIGHT LATERAL DRSG TO PREVIOUS CT SITE, DRSG CDI, BILAT TEDS/SCDS INTACT, PPP, AIR OVERLAY MATTRESS IN USE, CALL LIGHT AND SILK WASHING MACHINE OPERATOR BUTTON IN REACH.
--- NOTE | 2017-04-19 19:50 | NUR ---
PT ASSISTED UP TO BSC, VOIDED APPROX 150CC, CLEAR YELLOW URINE, ASSISTED WITH PERICARE, PT ASSISTED BACK TO BED AND POSITIONED UP IN BED FOR COMFORT, DENIES FURTHER NEEDS.
--- NOTE | 2017-04-19 20:35 | NUR ---
EVENING MEDS GIVEN WITH SIPS OF WATER
--- NOTE | 2017-04-19 21:00 | NUR ---
NO VISITORS IN AT THIS TIME, PT REQUESTING BEDPAN, VOIDED 50CC URINE, REMOVED FROM BEDPAN AND CLEANED, POSITIONED FOR COMFORT, PT DENIES FURTHER NEEDS.
--- NOTE | 2017-04-19 21:45 | NUR ---
PT ASSISTED UP TO BSC, PARTIAL LINEN CHANGE PROVIDED, PT HAD 300 CC LIQUID STOOL, CLEANED PT AND ASSISTED BACK TO BED, TIMED LAB DRAWN FROM CVL AND SENT TO LAB.
--- NOTE | 2017-04-19 23:00 | NUR ---
REASSESSMENT COMPLETED, SERUM K GIVEN FOR K 3.5 PER PROTOCOL, WILL CONT TO MONITOR FOR CHANGES.
[2017-04-20] VITALS (13 sets, daily range): BP systolic 104–119; BP diastolic 68–79
--- NOTE | 2017-04-20 01:00 | NUR ---
NO CHANGES IN STATUS AT THIS TIME, VSS, WILL CONT TO MONITOR FOR CHANGES.
--- NOTE | 2017-04-20 03:50 | NUR ---
PT TAKEN TO RADIOLOGY FOR PA AND LATERAL.
--- NOTE | 2017-04-20 04:20 | NUR ---
PT RETURNED TO ROOM FROM RADIOLOGY, ASSISTED TO BSC, CALL LIGHT IN REACH.
--- NOTE | 2017-04-20 04:35 | NUR ---
PT ASSISTED BACK TO BED AND ALL MONITORS ESTABLISHED, PT HAD LIQUID YELLOW MUCUS LIKE STOOL APPROX 300CC, PERICARE PROVIDED, PT REPOSITIONED UP IN BED, DENIES NEEDS, CALL LIGHT AND COAGULATING BATH OPERATOR IN REACH.
--- NOTE | 2017-04-20 06:00 | NUR ---
AM MEDS GIVEN AND AM LAB DRAWN AND SENT TO LAB, NO VISITORS IN AT THIS TIME
[2017-04-20 06:19] LABS: BASOPHILS 0.3 % (0-2); EOSINOPHILS 6.5 % (0-7); HEMATOCRIT 25.1 % (36.0-48.0); IMMATURE GRANULOCYTES 0.2 % (0-5); LYMPHOCYTES 29.2 % (15-50); MCH 31.3 pg (26.0-34.0); MCHC 31.9 g/dL (31.0-37.0); MEAN PLATELET VOLUME 9.9 fL (7.4-10.4); MONOCYTES 11.4 % (2-11); NEUTROPHILS 52.4 % (40-80); PLATELET COUNT 343 10x3/uL (130-400); RBC 2.56 10x6/uL (4.00-5.40); RDW 14.2 % (11.5-14.5); WBC 6.6 10x3/uL (4.8-10.8)
[2017-04-20 06:29] LABS: CALC OSMOLALITY 273 mosm/kg (275-300); CALCIUM 9.1 mg/dL (8.5-10.1); CARBON DIOXIDE 32.8 mmol/L (21.0-32.0); CHLORIDE - SERUM 102 mmol/L (98-107); CREATININE - SERUM 0.5 mg/dL (0.6-1.3); GLUCOSE 101 mg/dL (74-106); POTASSIUM - SERUM 3.5 mmol/L (3.5-5.1); SODIUM 138 mmol/L (136-145); UREA NITROGEN 7 mg/dL (7-18); eGFR NON AFRICAN AMERICAN > 90 mL/min (90-120)
--- NOTE | 2017-04-20 07:00 | NUR ---
SHIFT ASSSESSMENT COMPLETED, ALERT AND ORIENTED, RESPRIATIONS EVEN AND UNLABORED, SUBCLAVIAN IN PLACE, INFUSING, ANIMAL TECHNICIAN WITHIN REACH, DENIES PAIN AT THIS TIME, REPOSITIONED, DENIES ALL NEEDS, VSS,W ILL CONTIUE TO MONITOR
--- NOTE | 2017-04-20 09:00 | NUR ---
PT REPOSITIONED, DENIES ALL NEEDS, VSS
--- NOTE | 2017-04-20 09:53 | NUR ---
Nutrition follow-up: Diet: ADA consistent CHO PO intake ~60% average of meals Labs reviewed Glucose WNL +BM - possible C.Diff Wt: 234# RDN following.
--- NOTE | 2017-04-20 11:00 | NUR ---
PT ALERT, REPOSITIONED, DENIES PAIN AND ALL NEEDS, USING HIMS CLERK, VSS, WILL CONTINUE TO MONITOR
--- NOTE | 2017-04-20 13:00 | NUR ---
TOTAL BED BATH AND LINEN CHANGE PROVIDED, DENIES ALL NEEDS, VSS, WILL CONTINUE TO MONITOR
--- NOTE | 2017-04-20 15:00 | NUR ---
PT DENIES ALL NEEDS, PAIN MANAGED WITH COLLET MAKING MACHINE OPERATOR, VSS, WILL CONTINUE TO MONITOR
[2017-04-20 15:47] LABS: CARBON DIOXIDE 32.3 mmol/L (21.0-32.0); CHLORIDE - SERUM 100 mmol/L (98-107); CREATININE - SERUM 0.6 mg/dL (0.6-1.3); GLUCOSE 111 mg/dL (74-106); POTASSIUM - SERUM 3.4 mmol/L (3.5-5.1); SODIUM 139 mmol/L (136-145); eGFR NON AFRICAN AMERICAN > 90 mL/min (90-120)
[2017-04-20 15:50] LABS: CALC OSMOLALITY 277 mosm/kg (275-300); UREA NITROGEN 9 mg/dL (7-18)
--- NOTE | 2017-04-20 16:24 | NUR ---
POTASSIUM 3.4, STARTED KCL RIDERS, WILL CONTINUE PER PROTOCOL
--- NOTE | 2017-04-20 19:30 | NUR ---
REC'D PT RESTING IN BED ON O2 @ 2 LITERS, AWAKE, ALERT, ORIENTED X 4, PT DENIES PAIN AT THIS TIME, RDLSCL DRSG CDI WITH PLASMALYTE @ 30CC/HR AND MORPHINE SENIOR SYSTEMS ADMINISTRATOR 0.5MG Q10MIN WITH 20MG Q4HR LOCKOUT, RIGHT LATERAL CHEST INCISION EXTENDING TO BACK, OPEN TO AIR , WITHOUT REDNESS OR DRAINAGE, RIGHT LATERAL DRSG TO PREVIOUS CT INSERTION SITES CDI, BILAT TEDS/SCDS INTACT, PPP, AIR OVERLAY IN USE, SR UP X 2, CALL LIGHT AND SENIOR SYSTEMS ADMINISTRATOR IN REACH.
--- NOTE | 2017-04-20 21:20 | NUR ---
EVENING MEDS GIVEN, PT ASSISTED UP TO BSC, VOIDED 220 CC DARK YELLOW URINE, PT ABLE TO DO PERICARE, ASSISTED BACK TO BED AND REPOSITIONED UP IN BED FOR COMFORT, LAB DRAWN FOR TIMED BMP AND SENT TO LAB, PT DENIES FURTHER NEEDS.
[2017-04-20 21:53] LABS: CALC OSMOLALITY 274 mosm/kg (275-300); CALCIUM 8.9 mg/dL (8.5-10.1); CARBON DIOXIDE 33.1 mmol/L (21.0-32.0); CHLORIDE - SERUM 102 mmol/L (98-107); CREATININE - SERUM 0.6 mg/dL (0.6-1.3); GLUCOSE 117 mg/dL (74-106); POTASSIUM - SERUM 3.7 mmol/L (3.5-5.1); SODIUM 138 mmol/L (136-145); UREA NITROGEN 8 mg/dL (7-18); eGFR NON AFRICAN AMERICAN > 90 mL/min (90-120)
--- NOTE | 2017-04-20 23:30 | NUR ---
REASSESSMENT COMPLETED, NO CHANGES FROM PREVIOUS ASSESSMENT, PT REQUESTING ICE CUP OF ICE PROVIDED, CM-SR, BP STABLE, WILL CONT TO MONITOR.
[2017-04-21] VITALS (9 sets, daily range): BP systolic 105–159; BP diastolic 40–75
--- NOTE | 2017-04-21 02:30 | NUR ---
PT ASSISTED UP TO BSC, VOIDED APPROX 240CC, BACK TO BED WITHOUT DIFFICULTY, DENIES PAIN OR OTHER NEEDS.
--- NOTE | 2017-04-21 04:30 | NUR ---
PT TAKEN TO RADIOLOGY FOR PA AND LATERAL
--- NOTE | 2017-04-21 04:50 | NUR ---
PT RETURNED FROM PA AND LATERAL, REFUSES BATH AT THIS TIME, ASSISTED BACK TO BED AND SCD'S REAPPLIED, ICE WATER PROVIDED, PT DENIES FURTHER NEEDS.
--- NOTE | 2017-04-21 06:15 | NUR ---
AM LAB DRAWN AND SENT TO LAB, AM PROTONIX GIVEN, WILL REPORT TO ONCOMING SHIFT
[2017-04-21 06:25] LABS: BASOPHILS 0.4 % (0-2); EOSINOPHILS 6.4 % (0-7); HEMATOCRIT 25.8 % (36.0-48.0); HEMOGLOBIN 8.2 g/dL (12-16); IMMATURE GRANULOCYTES 0.4 % (0-5); LYMPHOCYTES 32.3 % (15-50); MCH 31.1 pg (26.0-34.0); MCHC 31.8 g/dL (31.0-37.0); MCV 97.7 fL (80.0-100.0); MEAN PLATELET VOLUME 9.9 fL (7.4-10.4); MONOCYTES 13.1 % (2-11); NEUTROPHILS 47.4 % (40-80); PLATELET COUNT 351 10x3/uL (130-400); RBC 2.64 10x6/uL (4.00-5.40); RDW 14.3 % (11.5-14.5); WBC 7.1 10x3/uL (4.8-10.8)
[2017-04-21 06:44] LABS: ALKALINE PHOSPHATASE 65 U/L (46-116); ALT (SGPT) 15 U/L (10-68); BILIRUBIN - TOTAL 0.37 mg/dL (0.2-1.3); CALC OSMOLALITY 274 mosm/kg (275-300); CALCIUM 8.6 mg/dL (8.5-10.1); CARBON DIOXIDE 31.8 mmol/L (21.0-32.0); CHLORIDE - SERUM 101 mmol/L (98-107); CREATININE - SERUM 0.6 mg/dL (0.6-1.3); GLUCOSE 102 mg/dL (74-106); POTASSIUM - SERUM 3.7 mmol/L (3.5-5.1); SODIUM 138 mmol/L (136-145); UREA NITROGEN 9 mg/dL (7-18); eGFR NON AFRICAN AMERICAN > 90 mL/min (90-120)
--- NOTE | 2017-04-21 07:00 | NUR ---
SHIFT ASSESSMENT COMPLETED, PT ALERT, RESPRIATIONS EVEN AND UNLABORED, RIGHT SUBCLAVIAN CVL IN PLACE DRESSING CDI, DENIES PAIN, REPOSITIONED, BREAKFAST PROVIDED, VSS, WILL CONTINUE TO MONITOR
--- NOTE | 2017-04-21 11:04 | NUR ---
PACKAGER MACHINE DISCONTINUED APPROX [address] GARCIA, 0 BALANCE REMAINING AT TIME
[2017-04-21 13:16] LABS: FUNGUS CULTURE RESULT 1 Candida albicans (()); FUNGUS MYCOLOGY CULTURE Preliminary report (())
[2017-04-21 13:16] LABS: FUNGUS MYCOLOGY CULTURE Preliminary report (())
--- NOTE | 2017-04-21 14:24 | NUR ---
VSS, PT DENIES ANY PAIN, CALL LIGHT AND FLUIDS WITHIN REACH WILL CONTINUE TO MONITOR
--- NOTE | 2017-04-21 17:07 | NUR ---
PT CONTINUES TO HAVE NO CHANGES, VSS, REPOSITIONS SELF, PAIN MANAGED WITH PERCOCET, WILL CONTINUE TO MONITOR
--- NOTE | 2017-04-21 19:40 | NUR ---
REPORT REC'D AND CARE ASSUMED, REC'D PT RESTING IN BED ON O2 @ 2 LITERS, AWAKE, ALERT, ORIENTED X 4, RDLSCL DRSG CDI WITH PLASMALYTE INFUSING @ 30CC/HR, RIGHT LATERAL CHEST INCISION EXTENDING TO BACK, OPEN TO AIR, NO REDNESS OR DRAINAGE, RIGHT LATERAL CHEST DRSG CDI TO PREVIOUS CT INSERTION SITES, MAEE, BILAT TEDS/SCDS INTACT AND ON, PPP, AIR OVERLAY MATTRESS IN USE, SR UP X 2, CALL LIGHT IN REACH, BED IN LOW POSITION.
--- NOTE | 2017-04-21 20:00 | NUR ---
PT ASSISTED UP TO BSC TO VOID, BACK TO BED WITHOUT DIFFICULTY
--- NOTE | 2017-04-21 20:15 | NUR ---
PT REQUESTING PAIN MEDICATION FOR RIGHT LATERAL ACHING PAIN.
--- NOTE | 2017-04-21 20:25 | NUR ---
EVENING MEDS AND PAIN MEDICATION GIVEN, PT RATING PAIN "3" ON O-10 PAIN SCALE, DENIES FURTHER NEEDS.
--- NOTE | 2017-04-21 21:14 | NUR ---
SISTER AT , UPDATE GIVEN AND QUESTIONS ANSWERED.
--- NOTE | 2017-04-22 00:30 | NUR ---
PT RESTING IN BED EYES CLOSED, VSS, WILL CONT TO MONITOR FOR CHANGES.
--- NOTE | 2017-04-22 03:00 | NUR ---
PT REC'D TO ROOM 2305 FROM ER VIA STRETCHER, AWAKENED TO VERBAL STIMULI AND MOVED SELF OVER TO BED, ALL MONITORS ESTABLISHED, WILL NOT ANSWER QUESTIONS AT THIS TIME, LEFT ARM PIV SALINE LOCKED, CM-SB @ 57, BP STABLE, SR UP X 2, CALL LIGHT IN REACH, BED IN LOW POSITION, PT VISIBLE TO NURSES STATION.
[2017-04-22 04:00] VITALS: BP 104/69
--- NOTE | 2017-04-22 04:45 | NUR ---
PT TAKEN TO RADIOLOGY FOR PA AND LATERAL
--- NOTE | 2017-04-22 05:00 | NUR ---
PT BACK FROM RADIOLOGY, ASSISTED TO CHAIR AND BATH BASIN PROVIDED, PT BATHED SELF, COMPLETE LINEN CHANGE PROVIDED, PT ASSISTED INTO BED, SR UP X 2, CALL LIGHT IN REACH.
--- NOTE | 2017-04-22 05:35 | NUR ---
PT COMPLAINS OF PAIN, OXYCODONE AND AM PROTONIX GIVEN, PT DENIES FURTHER NEEDS, SR UP X 2, CALL LIGHT IN REACH.
[2017-04-22 07:00] VITALS: BP 102/64
--- NOTE | 2017-04-22 07:00 | NUR ---
ASSESSMENT COMPLETE PER FLOWSHEET. VOICES NO CO AT TIME.
--- NOTE | 2017-04-22 09:00 | NUR ---
CVL DCD. PIV SITED R FOREARM 20G X 1 STICK.
--- NOTE | 2017-04-22 10:51 | NUR ---
Patient Name: GRICELDA SANDOVAL Encounter No: [id number] : 1970 Primary Insurance: MEDICARE A & B Anticipated DC Date: Planned Disposition: Home DCP follow-up note: Patient and family in agreement with discharge plan. No changes to plan. Case management will follow and assist as needed. Sally Aguilar
[2017-04-22 11:00] VITALS: BP 104/63
--- NOTE | 2017-04-22 12:04 | NUR ---
UP IN CHAIR. NO CO AT TIME
[2017-04-22 15:00] VITALS: BP 107/68
--- NOTE | 2017-04-22 17:00 | NUR ---
PT REC'D TO ROOM 2238 VIA WC. ACCOMPANIED BY ICU STAFF. AAOX4. COMPLAINING OF PAIN TO R FLANK AREA. DRESSING TO R FLANK WITH SOME DRY ORANGE FLUID, BUT CDI OTHERWISE. INCISION SITE TO R UPPER FLANK AREA FREE OF REDNESS AND SWELLING. PIV TO R FA SALINE LOCKED FREE OF REDNESS AND SWELLING. EDEN HOSE ON AT THIS TIME. ABLE TO AMBULATE AROUND ROOM W/O DIFFICULTY. LUNG SOUNDS TO BARB AND RUL CLEAR AND EQUAL. LUNG SOUNDS TO LLL AND RML AND RLL WITH CRACKLES THAT DO NOT CLEAR WITH COUGH. NO OXYGEN ON AT THIS TIME. STATES SHE WAS WEARING IT IN ICU, BUT SHE DIDN'T KNOW WHY SHE NEEDED IT. CURRENT O2 SAT 95% ON RA. WILL ATTEMPT TO LEAVE O2 OFF. BED LOW, CALL LIGHT IN REACH, DENIES NEEDS. CPOC.
--- NOTE | 2017-04-22 17:29 | NUR ---
1530 REPORT CALLED TRANSFER PT TO FLOOR.
--- NOTE | 2017-04-22 17:35 | NUR ---
PRN PAIN MEDICATION ADMINISTERED PER PT COMPLAINTS OF 4/10 R FLANK PAIN. WILL REASSESS. FRESH WATER AND CUP OF ICE PROVIDED. BED LOW, CALL LIGHT IN REACH, DENIES NEEDS. CPOC.
[2017-04-22 19:00] VITALS: BP 105/65
--- NOTE | 2017-04-22 23:09 | NUR ---
REC'D COMING BACK FROM THE BATHROOM. ALERT AND ORIENTED X4. REPORTED PAIN 5/10. WILL ADMIN PM/AM MEDS PRESCRIBED. NO DISTRESS NOTED. INSTRUCTED TO CALL IF NEEDED ANYTHING. VERBALIZED UNDERSTANDING. BED LOW, LOCKED, CALL LIGHT IN REACH. WILL CONT TO MONITOR.
[2017-04-23 04:00] VITALS: BP 108/66
[2017-04-23 06:58] LABS: BASOPHILS 0.3 % (0-2); EOSINOPHILS 6.8 % (0-7); HEMATOCRIT 25.5 % (36.0-48.0); IMMATURE GRANULOCYTES 0.3 % (0-5); LYMPHOCYTES 39.3 % (15-50); MCH 30.7 pg (26.0-34.0); MCHC 31.4 g/dL (31.0-37.0); MCV 97.7 fL (80.0-100.0); MEAN PLATELET VOLUME 10.1 fL (7.4-10.4); MONOCYTES 13.1 % (2-11); NEUTROPHILS 40.2 % (40-80); PLATELET COUNT 343 10x3/uL (130-400); RBC 2.61 10x6/uL (4.00-5.40); RDW 14.3 % (11.5-14.5); WBC 6.4 10x3/uL (4.8-10.8)
[2017-04-23 07:10] LABS: CALC OSMOLALITY 276 mosm/kg (275-300); CALCIUM 8.7 mg/dL (8.5-10.1); CARBON DIOXIDE 32.3 mmol/L (21.0-32.0); CHLORIDE - SERUM 102 mmol/L (98-107); CREATININE - SERUM 0.6 mg/dL (0.6-1.3); GLUCOSE 88 mg/dL (74-106); POTASSIUM - SERUM 3.3 mmol/L (3.5-5.1); SODIUM 140 mmol/L (136-145); UREA NITROGEN 9 mg/dL (7-18); eGFR NON AFRICAN AMERICAN > 90 mL/min (90-120)
[2017-04-23 07:59] VITALS: BP 118/63
--- NOTE | 2017-04-23 10:45 | NUR ---
PT SEEN EARILER THIS AM. NO COMPLAINTS AT PRESENT. ASKED TO BRING PAIN PILL WITH NOON MEDS. DRESSING NOTED TO RIGHT BACK LUNG REGION-CLEAN DRY AND INTACT. EDEN HOSE ON AND REMOVED. SKIN TO HEELS BILAT WITHOUT REDDNESS AND NO EDEMA NOTED. CALL LIGHT IN REACH
[2017-04-23 12:21] VITALS: BP 103/66
--- NOTE | 2017-04-23 13:19 | NUR ---
SUTURES REMOVED X 3. MASTISOL AND STERISTRIPS APPLIED TO INCISIONS X 2. TOLERATED PROCEDURE WITHOUT COMPLAINTS
--- NOTE | 2017-04-23 14:46 | NUR ---
NUTRITION MONITORING & EVAL CHART REVIEWED. PT REMAINS IN ISOLATION. TOLERATING ADA DIET WITH 100% INTAKE RECENT MEALS. RD FOLLOWING
[2017-04-23] MEDS ORDERED: FLORAJEN3 CAPS460 MG PO (15:42)
[2017-04-23] MEDS ORDERED: MUCINEX DM ER1 EAC1 PO (15:42)
[2017-04-23] MEDS ORDERED: HEMOCYTE PLUS C1 CAP PO (15:43)
[2017-04-23 15:57] VITALS: BP 117/75
--- NOTE | 2017-04-23 16:03 | NUR ---
CM REASSESSMENT NOTE: PATIENT IS DISCHARGING HOME TODAY. REFUSED HOME HEALTH AND HAD NO OTHER NEEDS FOR DISCHARGE. PATIENTS FRIEND (TARYN) WILL DRIVE HER HOME.
== END 2017-04-23 18:11 | disposition home or self-care (01) | DRG 163 ==
LOC: D.ER 06:11 → D.ICU 10:10 → D.MS 10:10 → D.M2 10:10 → D.CVICU 04-13 10:40 → D.ICU 04-14 07:34 → D.MS 04-22 17:02
PROVIDERS: Emergency Medicine; Family Medicine; Internal Medicine Cardiovascular Disease; Internal Medicine Pulmonary Disease; Radiology Diagnostic Radiology; ADMIT Family Medicine
PROC: 0W993ZZ Drainage of Right Pleural Cavity, Percutaneous Approach (ICD-10-PCS; principal; 2017-04-02 16:07)
PROC: 0BJ08ZZ Inspection of Tracheobronchial Tree, Via Natural or Artificial Opening Endoscopic (ICD-10-PCS; 2017-04-10)
PROC: 0BJ08ZZ Inspection of Tracheobronchial Tree, Via Natural or Artificial Opening Endoscopic (ICD-10-PCS; 2017-04-13)
PROC: 0BDN4ZZ Extraction of Right Pleura, Percutaneous Endoscopic Approach (ICD-10-PCS; 2017-04-13 07:30)
PROC: 0W994ZZ Drainage of Right Pleural Cavity, Percutaneous Endoscopic Approach (ICD-10-PCS; 2017-04-13 07:30)
DX: J86.9 Pyothorax without fistula (principal); J15.6 Pneumonia due to other Gram-negative bacteria; J90 Pleural effusion, not elsewhere classified; J44.0 Chronic obstructive pulmonary disease with (acute) lower respiratory infection; F17.203 Nicotine dependence unspecified, with withdrawal; J44.1 Chronic obstructive pulmonary disease with (acute) exacerbation; T17.590A Other foreign object in bronchus causing asphyxiation, initial encounter; J98.11 Atelectasis; J20.9 Acute bronchitis, unspecified; F25.9 Schizoaffective disorder, unspecified; F41.8 Other specified anxiety disorders; M19.90 Unspecified osteoarthritis, unspecified site; E87.6 Hypokalemia; D64.9 Anemia, unspecified; K21.9 Gastro-esophageal reflux disease without esophagitis; E11.9 Type 2 diabetes mellitus without complications; L40.50 Arthropathic psoriasis, unspecified

== ENCOUNTER → 2017-05-18 18:52 | Outpatient (CLI) | payer MEDICARE ==
[2017-03-31 13:47] VITALS: BMI 36.1
[~2017-05-18 18:52] MED LIST changes: +BACLOFEN10 MG PO; +CYMBALTA30 MG PO; +FLORAJEN3 CAPS460 MG PO; +HEMOCYTE PLUS C1 CAP PO; +INVEGA6 MG/BLIST PO; +MUCINEX DM ER1 EAC1 PO; +PROZAC10 MG PO; +ULTRAM50 MG PO
== END | disposition home or self-care (01) ==
LOC: D.MAMMO 04-10 15:15
DX: Z12.31 Encounter for screening mammogram for malignant neoplasm of breast (principal)

== ENCOUNTER → 2017-05-27 12:20 | Outpatient (CLI) | payer MEDICARE ==
[2017-03-31 13:47] VITALS: BMI 36.1
== END | disposition home or self-care (01) ==
LOC: D.RAD 12:20
DX: Z98.890 Other specified postprocedural states (principal)

== ENCOUNTER → 2017-07-21 10:33 | Outpatient (CLI) | payer MEDICARE ==
[2017-03-31 13:47] VITALS: BMI 36.1
[~2017-07-21 10:33] MED LIST changes: +FOLIC ACID1 MG PO; +LYRICA50 MG PO; +PREDNISONE10 MG PO; +SINGULAIR10 MG PO; +VIBRAMYCIN 100100 MG PO
[2017-07-22 10:20] LABS: IMMUNOGLOBULIN E 3 IU/mL (0-100)
== END | disposition home or self-care (01) ==
LOC: D.RT 10:33
PROVIDERS: Internal Medicine Pulmonary Disease
DX: J44.9 Chronic obstructive pulmonary disease, unspecified (principal)

== ENCOUNTER 2017-08-18 12:09 | Inpatient (IN) | payer MEDICARE ==
[~2017-08-18] VITALS: Ht 167.6 cm; Wt 76.9 kg
[~2017-08-18 12:09] MED LIST changes: -FOLIC ACID1 MG PO; -LYRICA50 MG PO; -PREDNISONE10 MG PO; -SINGULAIR10 MG PO; -VIBRAMYCIN 100100 MG PO
[2017-08-18 14:22] LABS: BASOPHILS 0.1 % (0-2); EOSINOPHILS 0.7 % (0-7); HEMATOCRIT 35.5 % (36.0-48.0); HEMOGLOBIN 11.7 g/dL (12-16); IMMATURE GRANULOCYTES 0.5 % (0-5); LYMPHOCYTES 10.9 % (15-50); MCH 30.5 pg (26.0-34.0); MCV 92.4 fL (80.0-100.0); MEAN PLATELET VOLUME 11.1 fL (7.4-10.4); MONOCYTES 7.7 % (2-11); NEUTROPHILS 80.1 % (40-80); RBC 3.84 10x6/uL (4.00-5.40); RDW 13.6 % (11.5-14.5); WBC 13.3 10x3/uL (4.8-10.8)
[2017-08-18] MEDS ORDERED: LYRICA50 MG PO (14:27)
[2017-08-18] MEDS ORDERED: FOLIC ACID1 MG PO (14:28)
[2017-08-18] MEDS ORDERED: SINGULAIR10 MG PO (14:29)
[2017-08-18 14:46] VITALS: BP 121/86; BMI 40.4
[2017-08-18 14:49] LABS: PLATELET COUNT 185 10x3/uL (130-400)
[2017-08-18 14:59] LABS: ALBUMIN 3.1 g/dL (3.4-5.0); ANION GAP 26.1 mmol/L (8-16); BILIRUBIN - TOTAL 0.35 mg/dL (0.2-1.3); CALCIUM 9.1 mg/dL (8.5-10.1); CARBON DIOXIDE 29.1 mmol/L (21.0-32.0); CREATININE - SERUM 0.9 mg/dL (0.6-1.3); MAGNESIUM - SERUM 1.4 mg/dL (1.8-2.4); PHOSPHOROUS 1.8 mg/dL (2.5-4.9); POTASSIUM - SERUM 3.2 mmol/L (3.5-5.1); PROTEIN - SERUM 5.9 g/dL (6.4-8.2)
[2017-08-18 22:54] VITALS: BP 144/88
[2017-08-19 04:27] VITALS: BP 158/88
[2017-08-19 05:52] LABS: HEMATOCRIT 33.6 % (36.0-48.0); HEMOGLOBIN 11.1 g/dL (12-16); MCH 30.5 pg (26.0-34.0); MCV 92.3 fL (80.0-100.0); MEAN PLATELET VOLUME 11.8 fL (7.4-10.4); PLATELET COUNT 231 10x3/uL (130-400); RBC 3.64 10x6/uL (4.00-5.40); RDW 13.4 % (11.5-14.5); WBC 22.6 10x3/uL (4.8-10.8)
--- NOTE | 2017-08-19 06:10 | NUR ---
NURSE ROUNDS 08/18/17 19:30 - PT LYING IN BED, AWAKE, ALERT, ORIENTED, ASSISTED TO BATHROOM, NO NEEDS. CONTINUE TO MONITOR PT CLOSELY. BED LOW, CALL LIGHT IN REACH, SIDE RAILS X 2, HOB 35 DEGREES.
[2017-08-19 06:15] LABS: ALBUMIN 2.7 g/dL (3.4-5.0); ALKALINE PHOSPHATASE 55 U/L (46-116); ALT (SGPT) 19 U/L (10-68); CALCIUM 9.2 mg/dL (8.5-10.1); CHLORIDE - SERUM 106 mmol/L (98-107); CREATININE - SERUM 0.8 mg/dL (0.6-1.3); POTASSIUM - SERUM 3.6 mmol/L (3.5-5.1); PROTEIN - SERUM 6.2 g/dL (6.4-8.2); SODIUM 142 mmol/L (136-145); UREA NITROGEN 12 mg/dL (7-18); eGFR NON AFRICAN AMERICAN 82 mL/min (90-120)
[2017-08-19 06:18] LABS: APPEARANCE CLEAR (CLEAR); BACTERIA FEW /hpf (NONE SEEN); BILIRUBIN NEGATIVE (NEGATIVE); COLOR YELLOW (YELLOW); EPITHELIAL CELLS 0-5 /hpf (0-5); GLUCOSE NEGATIVE (NEGATIVE); KETONE NEGATIVE (NEGATIVE); NITRITE NEGATIVE (NEGATIVE); PROTEIN NEGATIVE (NEGATIVE); SPECIFIC GRAVITY 1.005 (1.005-1.020); UROBILINOGEN NORMAL (NORMAL); WHITE CELLS - URINE OCC /hpf (0-5)
[2017-08-19 06:23] LABS: CALC OSMOLALITY 289 mosm/kg (275-300); GLUCOSE 221 mg/dL (74-106)
[2017-08-19 07:11] LABS: LYMPHOCYTES 6 % (15-50); MONOCYTES 1 % (2-11); NEUTROPHILS 84 % (40-80); PLATELET ESTIMATE NORMAL; ROULEAUX OCC
--- NOTE | 2017-08-19 07:47 | NUR ---
AM ROUNDING- RECEIVED REPORT FROM ADMINISTRATIVE SALES ASSISTANT NURSE MARIE. PT IS CURRENTLY SITTING UP IN BED WITH EYES OPEN RESTING. ON 02 AT 2L VIA NC. NO MONITOR. IV SEEN TO RIGHT HAND WITH IV ANTIBIOTICS CURRENTLY RUNNING AT THIS TIME. PT IS IN DROPLET ISOLATION FOR POSSIBLE FLU PER REPORT. NO NEED AT THIS CURRENT TIME. WILL CONTINUE TO MONITOR AND CONITNUE WITH PLAN OF CARE.
[2017-08-19 08:27] VITALS: BP 131/61
[2017-08-19 12:11] VITALS: BP 125/65
[2017-08-19 12:40] VITALS: Ht 167.6 cm; Wt 76.9 kg
[2017-08-19 15:28] VITALS: BP 128/65
--- NOTE | 2017-08-19 17:19 | NUR ---
PT IS CURRENTLY SITTING UP IN BED WITH EYES OPEN RESTING. PT IS REQUESTING DIET MT. DEW DUE TO DIETRY BRINGING PT REGULAR MT. DEW. EXECUTIVE CHEF CALLED DIETRY. NO NEED AT THIS CURRENT TIME. WILL CONTINUE TO MONITOR.
[2017-08-19 21:14] VITALS: BP 137/73
[2017-08-19 23:29] VITALS: BP 131/75
--- NOTE | 2017-08-20 02:27 | NUR ---
NURSE ROUNDS 21:45 08/19/17 - PT LYING IN BED, AWAKE, ALERT, ORIENTED, REQUESTING HER HOME MEDICATIONS BE RESTARTED, ESPECIALLY THE BUSPAR, SEROQUEL, AND INVEGA, AND LYRICA. PT STATES THESE ARE USP, CHRONIC MEDICATIONS AND FEELS HER ANXIETY IS INCREASING SHE HAS NOT HAD THEM SINCE BEING ADMITTED. PT DENIES ANY OTHER NEEDS. WILL DISCUSS PTS HOME MEDS WITH DAYSHIFT. CONTINUE TO MONITOR CLOSELY. BED LOW, CALL LIGHT IN REACH, SIDE RAILS X 2, HOB 35-40 DEGREES.
--- NOTE | 2017-08-20 04:10 | NUR ---
PT LYING IN BED, AWAKE, ALERT, ORIENTED. PT STATES SHE HAS NOT SLEPT IN TWO DAYS R/T THE STEROIDS AND NOT HAVING HER MEDICATIONS. PT DENIES ANY NEEDS AT THIS TIME. WILL CONTINUE TO MONITOR PT CLOSELY. BED LOW, CALL LIGHT IN REACH, SIDE RAILS X 2, HOB 35-40 DEGREES.
[2017-08-20 04:49] VITALS: BP 141/91
[2017-08-20 05:43] LABS: BASOPHILS 0.1 % (0-2); EOSINOPHILS 0.1 % (0-7); HEMATOCRIT 33.6 % (36.0-48.0); HEMOGLOBIN 11.3 g/dL (12-16); IMMATURE GRANULOCYTES 0.9 % (0-5); LYMPHOCYTES 12.2 % (15-50); MCH 30.8 pg (26.0-34.0); MCHC 33.6 g/dL (31.0-37.0); MCV 91.6 fL (80.0-100.0); MEAN PLATELET VOLUME 11.2 fL (7.4-10.4); MONOCYTES 4.9 % (2-11); NEUTROPHILS 81.8 % (40-80); PLATELET COUNT 236 10x3/uL (130-400); RBC 3.67 10x6/uL (4.00-5.40); RDW 13.4 % (11.5-14.5); WBC 19.7 10x3/uL (4.8-10.8)
[2017-08-20 06:14] LABS: ALKALINE PHOSPHATASE 65 U/L (46-116); ALT (SGPT) 19 U/L (10-68); BILIRUBIN - TOTAL 0.33 mg/dL (0.2-1.3); CALC OSMOLALITY 288 mosm/kg (275-300); CALCIUM 8.9 mg/dL (8.5-10.1); CARBON DIOXIDE 29.6 mmol/L (21.0-32.0); CHLORIDE - SERUM 103 mmol/L (98-107); CREATININE - SERUM 0.8 mg/dL (0.6-1.3); GLUCOSE 182 mg/dL (74-106); POTASSIUM - SERUM 3.1 mmol/L (3.5-5.1); PROTEIN - SERUM 6.8 g/dL (6.4-8.2); SODIUM 142 mmol/L (136-145); UREA NITROGEN 15 mg/dL (7-18); eGFR NON AFRICAN AMERICAN 82 mL/min (90-120)
[2017-08-20 08:55] VITALS: BP 128/78
--- NOTE | 2017-08-20 09:50 | NUR ---
PT 3.1 K+ TREATED AT THIS TIME. WILL RECHECK IN 4 HOURS.
--- NOTE | 2017-08-20 11:58 | NUR ---
PT PREV ABX JUST FINISHED. GIVING VANC NOW.
[2017-08-20 12:05] VITALS: BP 133/79
--- NOTE | 2017-08-20 15:00 | NUR ---
SPOKE WITH ELANA PAREDES ABOUT RESTARTING PT HOME MEDICATIONS AT 1430. MED ORDERS NOW IN. PT NOTIFIED.
[2017-08-20 15:49] VITALS: BP 142/80
--- NOTE | 2017-08-20 16:35 | NUR ---
DR GALEAS IN TO SEE PT. DR ADAL SPICER'D PT'S DROPLET ISOLATION.
[2017-08-20 21:38] VITALS: BP 156/98
[2017-08-21 01:30] VITALS: BP 144/84
--- NOTE | 2017-08-21 03:57 | NUR ---
PT RESTING COMFORTABLY AT THIS TIME, EASILY ROUSABLE TO VERBAL STIMULI, FINALLY SLEEPING AFTER NOT BEING ABLE TO FOR THE LAST TWO NIGHTS. PT HAS ASKED TO HOLD HER LASIX THIS SHIFT, SO THAT SHE CAN SLEEP AND NOT HAVE TO BE UP TO BATHROOM FREQUENTLY. PT DENIES ANY OTHER NEEDS. CONTINUE TO MONITOR PT CLOSELY. BED LOW, CALL LIGHT IN REACH, SIDE RAILS X 2, HOB 35 DEGREES.
[2017-08-21 04:53] VITALS: BP 140/85
[2017-08-21 06:22] LABS: BASOPHILS 0.1 % (0-2); EOSINOPHILS 0 % (0-7); IMMATURE GRANULOCYTES 1.9 % (0-5); LYMPHOCYTES 18.6 % (15-50); MCH 30.6 pg (26.0-34.0); MCHC 33.3 g/dL (31.0-37.0); MCV 91.7 fL (80.0-100.0); MEAN PLATELET VOLUME 11.6 fL (7.4-10.4); MONOCYTES 6.9 % (2-11); NEUTROPHILS 72.5 % (40-80); PLATELET COUNT 251 10x3/uL (130-400); RDW 13.3 % (11.5-14.5); WBC 16.1 10x3/uL (4.8-10.8)
[2017-08-21 06:37] LABS: ALBUMIN 2.8 g/dL (3.4-5.0); ALKALINE PHOSPHATASE 59 U/L (46-116); ALT (SGPT) 17 U/L (10-68); BILIRUBIN - TOTAL 0.29 mg/dL (0.2-1.3); CALC OSMOLALITY 288 mosm/kg (275-300); CALCIUM 8.3 mg/dL (8.5-10.1); CARBON DIOXIDE 29.7 mmol/L (21.0-32.0); CHLORIDE - SERUM 103 mmol/L (98-107); CREATININE - SERUM 0.7 mg/dL (0.6-1.3); GLUCOSE 217 mg/dL (74-106); PROTEIN - SERUM 6.3 g/dL (6.4-8.2); SODIUM 141 mmol/L (136-145); UREA NITROGEN 16 mg/dL (7-18); eGFR NON AFRICAN AMERICAN > 90 mL/min (90-120)
[2017-08-21 06:41] LABS: POTASSIUM - SERUM 2.9 mmol/L (3.5-5.1)
--- NOTE | 2017-08-21 06:49 | NUR ---
PT RESTING COMFORTABLY, NO NEEDS. CONTINUE TO MONITOR CLOSELY.
--- NOTE | 2017-08-21 07:30 | NUR ---
REPORT RECEIVED. RR EVEN AND UNLABORED. PT DENIES NEEDS AT THIS TIME. BED IN LOWEST POSTION, CALL MENA IN REACH, WILL CTM.
[2017-08-21 08:26] VITALS: BP 141/87
--- NOTE | 2017-08-21 09:10 | NUR ---
FIRST DOSE PRN K+ GIVEN PER PROTOCOL FOR LOW K+ OF 2.9. WILL GIVE 2 MORE DOSES Q2 HRS AND RECHECK K+. WILL CTM.
[2017-08-21 12:18] VITALS: BP 146/87
--- NOTE | 2017-08-21 13:00 | NUR ---
PT RESTING QUIETLY, RR EVEN AND UNLABORED. PT DENIES NEEDS AT THIS TIME. NO SIGNS OF DISTRESS, WILL CTM.
--- NOTE | 2017-08-21 14:30 | NUR ---
Nutrition follow-up: Diet: Regular PO intake ~60% of meals labs reviewed Isolation has been removed RDN following.
[2017-08-21 16:12] VITALS: BP 147/88
--- NOTE | 2017-08-21 18:33 | NUR ---
PT RESTING QUIELTY, RR EVEN AND UNLABORED. PT DENIES NEEDS AT THIS TIME. WILL GIVE REPORT ON PT CONDTION FOR THE DAY.
--- NOTE | 2017-08-21 19:15 | NUR ---
RECIEVED LAYING IN BED WITH EYES OPEN. PLEASANT AND COOPERATIVE. DENIES ANY PAIN. O2@2 LITERS PER N/C. IV TO RIGHT HANDWITH NS AT KVO. REQUEST LASIX NOT BE GIVEN AT MN. CALL LIGHT AND OVERBED TABLE IN REACH.
[2017-08-21 20:00] VITALS: BP 164/97
[2017-08-22] VITALS: BP 147/93
[2017-08-22 04:00] VITALS: BP 134/78
[2017-08-22 05:10] LABS: BASOPHILS 0.2 % (0-2); EOSINOPHILS 0.1 % (0-7); HEMOGLOBIN 11.5 g/dL (12-16); IMMATURE GRANULOCYTES 6.4 % (0-5); LYMPHOCYTES 29.6 % (15-50); MCH 30.3 pg (26.0-34.0); MCHC 32.9 g/dL (31.0-37.0); MCV 92.3 fL (80.0-100.0); MEAN PLATELET VOLUME 11.5 fL (7.4-10.4); MONOCYTES 7.3 % (2-11); NEUTROPHILS 56.4 % (40-80); PLATELET COUNT 250 10x3/uL (130-400); RBC 3.79 10x6/uL (4.00-5.40); RDW 13.5 % (11.5-14.5)
[2017-08-22 05:34] LABS: ALBUMIN 2.7 g/dL (3.4-5.0); ALKALINE PHOSPHATASE 61 U/L (46-116); ALT (SGPT) 19 U/L (10-68); CALC OSMOLALITY 288 mosm/kg (275-300); CALCIUM 8.8 mg/dL (8.5-10.1); CARBON DIOXIDE 28.7 mmol/L (21.0-32.0); CHLORIDE - SERUM 104 mmol/L (98-107); CREATININE - SERUM 0.8 mg/dL (0.6-1.3); GLUCOSE 248 mg/dL (74-106); PROTEIN - SERUM 6.2 g/dL (6.4-8.2); SODIUM 140 mmol/L (136-145); UREA NITROGEN 19 mg/dL (7-18); eGFR NON AFRICAN AMERICAN 81 mL/min (90-120)
[2017-08-22 05:37] LABS: POTASSIUM - SERUM 3.1 mmol/L (3.5-5.1)
--- NOTE | 2017-08-22 07:15 | NUR ---
REPORT RECEIVED. PT RESTING QUIETLY, RR EVEN AND UNLABORED. PRIVACY ATTORNEY AT BEDSIDE OBTAINING VS. PT DENIES NEEDS AT THIS TIME, REPORTS HAVING A "GOOD NIGHT." WILL CTM.
[2017-08-22 07:48] VITALS: BP 127/89
[2017-08-22 12:03] VITALS: BP 130/90
--- NOTE | 2017-08-22 13:19 | NUR ---
REPLACED PTS POTASSIUM PER PROTOCOL. WILL RECHECK LABS IN 4 HRS AND CTM.
[2017-08-22 16:24] VITALS: BP 124/90
--- NOTE | 2017-08-22 18:20 | NUR ---
PT RESTING QUIETLY, RR EVEN AND UNLABORED. PT REQUESTED PRN PAIN MEDS, GIVEN. WILL GIVE REPORT ON PT CONDTION FOR THE DAY.
--- NOTE | 2017-08-22 19:01 | NUR ---
RECIEVED UP IN BED WITH TV ON. DENIES ANY PAIN AT THIS TIME. CALL LIGHT AND OVERBED TABLE IN REACH.
[2017-08-22 20:00] VITALS: BP 154/99
[2017-08-23 01:15] VITALS: BP 151/103
--- NOTE | 2017-08-23 03:35 | NUR ---
RESTING IN BED WITH EYES CLOSED. N O S/S OF DISTRESS OBSERVED. CALL LIGHT AND OVERBED TABLE IN REACH. IV PATENT AND INFUSING D5NS AT 30CC/HR. CALL LIGHT AND OVERBED TABLE IN REACH.
--- NOTE | 2017-08-23 03:36 | NUR ---
RESTING IN BED WITH EYES CLOSED. NOP S/S OF DISTRESS OBSERVED. CALL LIGHT AND OVERBED TABLE IN REACH. IV INFUSING D5NS AT 30CC/HR. NO REDNESS OR SWELLING TO SITE. DRESSING CLEAN, DRY AND INTACT.
--- NOTE | 2017-08-23 05:06 | NUR ---
PT GOT UP AT APPROX. 0330 AND REQUESTED COFFEE AND A SHOWER. EARLIER STATED THAT THE TOP TWO WIRES ON TELEMETRY FELL OFF. THIS NURSE SNAPPED THE PADS ONTO THE WIRES EARLIER. HESITANT TO PUT TELEMETRY BACK ON AFTER SHOWER. STATES " SOON THEY GET MY LINEN CHANGED ON MY BED". FINALLY TELEMETRY PUT BACK ON. CALL LIGHT AND OVERBED TABLE IN REACH.
[2017-08-23 05:15] LABS: BASOPHILS 0.4 % (0-2); EOSINOPHILS 0.4 % (0-7); HEMATOCRIT 35.1 % (36.0-48.0); HEMOGLOBIN 11.5 g/dL (12-16); IMMATURE GRANULOCYTES 8.3 % (0-5); LYMPHOCYTES 29.8 % (15-50); MCH 30.3 pg (26.0-34.0); MCHC 32.8 g/dL (31.0-37.0); MCV 92.4 fL (80.0-100.0); MEAN PLATELET VOLUME 11.5 fL (7.4-10.4); MONOCYTES 5.8 % (2-11); NEUTROPHILS 55.3 % (40-80); PLATELET COUNT 237 10x3/uL (130-400); RDW 13.2 % (11.5-14.5); WBC 14.2 10x3/uL (4.8-10.8)
[2017-08-23 05:19] VITALS: BP 141/87
[2017-08-23 05:39] LABS: ALBUMIN 2.6 g/dL (3.4-5.0); ALKALINE PHOSPHATASE 65 U/L (46-116); ALT (SGPT) 20 U/L (10-68); BILIRUBIN - TOTAL 0.29 mg/dL (0.2-1.3); CALCIUM 8.4 mg/dL (8.5-10.1); CARBON DIOXIDE 29.7 mmol/L (21.0-32.0); CHLORIDE - SERUM 105 mmol/L (98-107); CREATININE - SERUM 0.7 mg/dL (0.6-1.3); MAGNESIUM - SERUM 1.7 mg/dL (1.8-2.4); PHOSPHOROUS 2.6 mg/dL (2.5-4.9); PROTEIN - SERUM 6.1 g/dL (6.4-8.2); SODIUM 141 mmol/L (136-145); UREA NITROGEN 17 mg/dL (7-18); eGFR NON AFRICAN AMERICAN > 90 mL/min (90-120)
[2017-08-23 05:40] LABS: CALC OSMOLALITY 286 mosm/kg (275-300); GLUCOSE 179 mg/dL (74-106); POTASSIUM - SERUM 3.5 mmol/L (3.5-5.1)
--- NOTE | 2017-08-23 07:11 | NUR ---
AM ROUNDING- RECEIVED REPORT FROM TOOL DESIGN ENGINEER NURSE ALLAN. PT IS CURRENTLY SITTING UP IN BED WITH EYES CLOSED RESTING. ON ROOM AIR. NO MONITOR. IV SEEN TO RIGHT HAND WITH NS RUNNING AT KVO. NO NEED AT THIS CURRENT TIME. WILL CONTINUE TO MONITOR AND CONTINUE WITH PLAN OF CARE.
[2017-08-23 07:42] VITALS: BP 152/96
--- NOTE | 2017-08-23 08:30 | NUR ---
YOUNGER LADY, WITH AN IMPROVING SCR. HER VANCOMYCIN TROUGH LAST NIGHT WAS 11.8 DRAWN ROUGHLY 9.5 HOURS POST DOSE. WILL BUMP HER UP TO 1.5 Q12H STARTING WITH THE 2100 DOSE 08/23. WILL CHECK ANOTHER TROUGH AFTER A FEW DOSES
[2017-08-23 11:37] VITALS: BP 135/83
--- NOTE | 2017-08-23 12:58 | NUR ---
PT TX WITH EP ORDERED FOR MAGNESIUM OF 1.7.
[2017-08-23] MEDS ORDERED: VIBRAMYCIN 100100 MG PO (13:42)
[2017-08-23] MEDS ORDERED: OMNICEF300 MG PO (13:42)
[2017-08-23] MEDS ORDERED: PREDNISONE10 MG PO (13:46)
--- NOTE | 2017-08-23 14:45 | NUR ---
1403 TC TO [facility]. ANGELIQUE LEFT FOR KYLE. RECEIVED CB FROM KYLE. REVIEWED REFERRAL. FAXED MD ORDER AND CLINICAL. PHONE NUMBER [phone] FAX [phone]. PATIENT RECEIVED A TC STATING [facility] WOULD DELIVER HIS NEBULIZER TO HIS HOME IN THE AM.
--- NOTE | 2017-08-23 16:38 | NUR ---
PT IS CURRENTLY SITTING UP IN BED WITH EYES OPEN RESTING. PT IS AWAITING D/C PAPERWORK AT THIS TIME. WILL CONTINUE TO MONITOR.
--- NOTE | 2017-08-23 17:00 | NUR ---
D/C INSTRUCTIONS EXPLAINED TO PT. D/C PAPERWORK SIGNED BY PT AND PLACED IN CHART. IV TO RIGHT HAND REMOVED WITH CATH TIP INTACT. COVERED SITE WITH 2X2 GAUZE PADS AND SECURED WITH TAPE. PT IS GETTING BELONGINGS TOGETHER NOW. PT DID INFORM ME PRIOR ON SHIFT THAT HER CAR IS HERE (DR. GALEAS WAS IN ROOM AT THIS TIME AND STATES SHE DROVE HERSELF FROM THE OFFICE) AND SHE WILL BE DRIVING HERSELF HOME.
--- NOTE | 2017-08-23 17:18 | NUR ---
PT D/C VIA WHEELCHAIR.
--- NOTE | 2017-09-02 11:38 | CN ---
PATIENT NAME:GRICELDA SANDOVAL MEDICAL RECORD: [id number] : 70 LOCATION:D. D.2101 ADMIT DATE: 08/18/17 ACCOUNT: [id number] CONSULTING PHYSICIAN: RITA SANDOVAL MD REFERRING PHYSICIAN: KAELA COOPER MD DATE OF CONSULTATION: 08/19/2017 CONSULT REQUESTING PHYSICIAN: Kaela Cooper MD. REASON FOR CONSULTATION: Acute exacerbation of COPD and pneumonia. HISTORY OF PRESENT ILLNESS: Ms. Sandoval is a 46-year-old female, who has a history of COPD. She was seen in Dr. Guzman's office yesterday with worsening shortness of breath and hypoxia. The patient was directly admitted from the office to the hospital. Now, she is feeling a little bit better. She is coughing. She also has some pleuritic type of chest pain. There is no associated nausea or vomiting, and no diarrhea. The cough is productive with very little sputum. PAST MEDICAL HISTORY: 1. COPD. 2. History of empyema status post VATS and decortication. 3. History of gestational diabetes. 4. Anxiety, depression. PAST SURGICAL HISTORY: 1. She has a history of VATS and decortication by Dr. Sandoval in March of this year. 2. . 3. Hysterectomy 4. Cyst removed from the ovary. 5. Total knee replacement. ALLERGIES: SHE IS ALLERGIC TO SULFA, CLONAZEPAM, AND HYDROCODONE. PRESENT MEDICATIONS: On iCo Therapeuticstech was reviewed. PERSONAL AND SOCIAL HISTORY: The patient is still current everyday smoker. She is a nondrinker. FAMILY HISTORY: Significant for diabetes mellitus. PHYSICAL EXAMINATION: GENERAL: Now, the patient is lying comfortably, but she is not in acute respiratory distress. VITAL SIGNS: The blood pressure is 125/65, pulse is 88, respiration is 16, temperature is 97.9, SpO2 is 96% on 2 liters nasal cannula. HEENT: Conjunctivae pink, sclerae nonicteric. NECK: Supple, no JVD. CHEST: There are bibasilar crackles. No wheezing. HEART: Rhythm regular, normal sound, no murmur. ABDOMEN: Soft. Bowel sounds present. No hepatosplenomegaly. RECTAL: Deferred. EXTREMITIES: No cyanosis, no clubbing, no pedal edema. SKIN: Warm, normal turgor. She is tattooed all over. CONSULT REPORT [id number] GRICELDA SANDOVAL CENTRAL NERVOUS SYSTEM: The patient is awake and alert. There is no obvious cranial nerve abnormality. The gait was not tested. CHEST RADIOGRAPH: On 08/18/2017, bibasilar infiltrate, possible atelectasis. LABORATORY DATA: CBC: The WBC is 22.6, hemoglobin 11.1, hematocrit 33.6, platelet count 231. Chemistries: Sodium is 142, potassium 3.6, BUN is 12, creatinine 0.8. IMPRESSION: 1. Acute exacerbation of chronic obstructive pulmonary disease. 2. Pneumonia, bilateral lower lobes. 3. Possible community-acquired pneumonia. 4. Leukocytosis. 5. Acute hypoxic respiratory failure. 6. Pleurisy. 7. Tobacco dependence syndrome. RECOMMENDATION: 1. Continue vancomycin, cefepime and doxycycline. 2. Methylprednisolone IV. 3. Albuterol ipratropium nebulizer. 4. Brovana and budesonide nebulizer. 5. Supplemental oxygen as required. 6. Follow up labs and chest radiograph. Dr. Cooper, thank you for involving me in the care of Ms. Sandoval. TRANSINT:[id number] Voice Confirmation ID: [id number] DOCUMENT ID: [id number] RITA SANDOVAL MD at 1138 CC: KAELA COOPER MD [id number] DICTATION DATE: 08/19/17 1411 DRYWALL METAL STUD WORKER: 08/19/17 1537 DIS IN 08/23/17 [facility] [address] [place] [address]
== END 2017-08-23 17:19 | disposition home or self-care (01) | DRG 177 ==
LOC: D.M2 12:09
PROVIDERS: ADMIT Emergency Medicine
DX: J15.6 Pneumonia due to other Gram-negative bacteria (principal); J96.01 Acute respiratory failure with hypoxia; J44.1 Chronic obstructive pulmonary disease with (acute) exacerbation; J44.0 Chronic obstructive pulmonary disease with (acute) lower respiratory infection; F17.203 Nicotine dependence unspecified, with withdrawal; J15.212 Pneumonia due to Methicillin resistant Staphylococcus aureus; F25.9 Schizoaffective disorder, unspecified; I10 Essential (primary) hypertension; E11.9 Type 2 diabetes mellitus without complications; D64.9 Anemia, unspecified; F41.8 Other specified anxiety disorders; I34.0 Nonrheumatic mitral (valve) insufficiency; G51.0 Bell's palsy

== ENCOUNTER → 2017-08-18 12:10 | Outpatient (CLI) | payer MEDICARE ==
[2017-03-31 13:47] VITALS: BMI 36.1
[~2017-08-18 12:10] MED LIST changes: +FOLIC ACID1 MG PO; +LYRICA50 MG PO; +PREDNISONE10 MG PO; +SINGULAIR10 MG PO; +VIBRAMYCIN 100100 MG PO
== END | disposition home or self-care (01) ==
LOC: D.LABREF 12:10
DX: J11.1 Influenza due to unidentified influenza virus with other respiratory manifestations (principal)

== ENCOUNTER 2017-08-30 13:14 | Emergency (ER) | payer MEDICARE ==
[2017-08-19 12:40] VITALS: BMI 40.3
== END 2017-08-30 15:10 | disposition home or self-care (01) ==
LOC: D.ER 13:14
DX: S63.92XA Sprain of unspecified part of left wrist and hand, initial encounter (principal); W19.XXXA Unspecified fall, initial encounter; Y93.K1 Activity, walking an animal; Y92.89 Other specified places as the place of occurrence of the external cause

== ENCOUNTER 2017-11-08 17:11 | Emergency (ER) | payer MEDICARE ==
[2017-08-19 12:40] VITALS: BMI 40.3
== END 2017-11-08 20:18 | disposition home or self-care (01) ==
LOC: D.ER 17:11
DX: M79.642 Pain in left hand (principal); M77.9 Enthesopathy, unspecified; F17.200 Nicotine dependence, unspecified, uncomplicated

== ENCOUNTER 2017-11-12 15:41 | Emergency (ER) | payer MEDICARE ==
[2017-08-19 12:40] VITALS: BMI 40.3
== END 2017-11-12 18:56 | disposition home or self-care (01) ==
LOC: D.ER 15:41
DX: J11.1 Influenza due to unidentified influenza virus with other respiratory manifestations (principal); M79.1 Myalgia; R50.9 Fever, unspecified; R09.89 Other specified symptoms and signs involving the circulatory and respiratory systems; R06.2 Wheezing

== ENCOUNTER 2018-03-21 22:44 | Emergency (ER) | payer MEDICARE ==
[~2018-03-21] VITALS: Ht 167.6 cm; Wt 113.6 kg
[2018-03-21 23:05] VITALS: Ht 167.6 cm; Wt 113.6 kg
[2018-03-21] MEDS ORDERED: TORADOL10 MG PO (23:58)
[2018-03-22 00:13] VITALS: BP 133/78
== END 2018-03-22 00:14 | disposition home or self-care (01) ==
LOC: D.ER 22:44
DX: Z96.653 Presence of artificial knee joint, bilateral (principal); M81.0 Age-related osteoporosis without current pathological fracture

== ENCOUNTER 2018-03-24 17:58 | Emergency (ER) | payer MEDICARE ==
[~2018-03-24] VITALS: Ht 167.6 cm; Wt 113.6 kg
[~2018-03-24 17:58] MED LIST changes: +TORADOL10 MG PO
[2018-03-24 18:13] VITALS: Ht 167.6 cm; Wt 113.6 kg
[2018-03-24 20:13] LABS: APPEARANCE CLEAR (CLEAR); BACTERIA MODERATE /hpf (NONE SEEN); BILIRUBIN NEGATIVE (NEGATIVE); COLOR YELLOW (YELLOW); GLUCOSE NEGATIVE (NEGATIVE); KETONE NEGATIVE (NEGATIVE); NITRITE NEGATIVE (NEGATIVE); PROTEIN NEGATIVE (NEGATIVE); RED CELLS - URINE 0-5 /hpf (0-5); SPECIFIC GRAVITY 1.015 (1.005-1.020); UROBILINOGEN NORMAL (NORMAL)
[2018-03-24 20:17] LABS: BASOPHILS 0.2 % (0-2); EOSINOPHILS 5.4 % (0-7); HEMATOCRIT 35.9 % (36.0-48.0); HEMOGLOBIN 11.9 g/dL (12-16); IMMATURE GRANULOCYTES 0.1 % (0-5); LYMPHOCYTES 38.2 % (15-50); MCH 30.2 pg (26.0-34.0); MCHC 33.1 g/dL (31.0-37.0); MCV 91.1 fL (80.0-100.0); MEAN PLATELET VOLUME 11.4 fL (7.4-10.4); MONOCYTES 6.3 % (2-11); NEUTROPHILS 49.8 % (40-80); PLATELET COUNT 201 10x3/uL (130-400); RBC 3.94 10x6/uL (4.00-5.40); RDW 13.9 % (11.5-14.5)
[2018-03-24 20:32] LABS: ALBUMIN 3.6 g/dL (3.4-5.0); ANION GAP 9.5 mmol/L (8-16); BILIRUBIN - TOTAL 0.23 mg/dL (0.2-1.3); CALCIUM 10.1 mg/dL (8.5-10.1); CARBON DIOXIDE 31.9 mmol/L (21.0-32.0); CREATININE - SERUM 1.1 mg/dL (0.6-1.3); POTASSIUM - SERUM 3.4 mmol/L (3.5-5.1); PROTEIN - SERUM 7.3 g/dL (6.4-8.2)
[2018-03-24 21:49] VITALS: BP 139/93
== END 2018-03-24 21:50 | disposition home or self-care (01) ==
LOC: D.ER 17:58
PROVIDERS: Family Medicine
DX: R60.0 Localized edema (principal); F17.200 Nicotine dependence, unspecified, uncomplicated

== ENCOUNTER → 2018-06-24 14:10 | Outpatient (CLI) | payer MEDICARE ==
[2018-03-24 18:13] VITALS: BMI 40.4
== END | disposition home or self-care (01) ==
LOC: D.MAMMO 10:15
DX: Z12.31 Encounter for screening mammogram for malignant neoplasm of breast (principal)

== ENCOUNTER → 2018-07-14 13:59 | Outpatient (CLI) | payer MEDICARE ==
[2018-03-24 18:13] VITALS: BMI 40.4
== END | disposition home or self-care (01) ==
LOC: D.RT 13:59
DX: J90 Pleural effusion, not elsewhere classified (principal)

== ENCOUNTER → 2018-08-02 08:23 | Outpatient (CLI) | payer MEDICARE ==
[2018-03-24 18:13] VITALS: BMI 40.4
== END | disposition home or self-care (01) ==
LOC: D.CT 08:23
DX: R93.89 Abnormal findings on diagnostic imaging of other specified body structures (principal)

== ENCOUNTER 2018-08-05 10:08 | Emergency (ER) | payer MEDICARE ==
[~2018-08-05] VITALS: Ht 167.6 cm; Wt 110.9 kg
[2018-08-05 10:13] VITALS: BP 110/73; Ht 167.6 cm; Wt 110.9 kg
[2018-08-05] MEDS ORDERED: TORADOL10 MG PO (11:08)
== END 2018-08-05 12:11 | disposition home or self-care (01) ==
LOC: D.ER 10:08
DX: M25.562 Pain in left knee (principal); Z96.652 Presence of left artificial knee joint; F17.200 Nicotine dependence, unspecified, uncomplicated

== ENCOUNTER 2018-09-30 14:16 | Inpatient (IN) | payer MEDICARE ==
[~2018-09-30] VITALS: Ht 167.6 cm; Wt 113.7 kg
[2018-09-30] MEDS ORDERED: METHOTREXATE2.5 MG PO (14:39)
[2018-09-30 15:13] LABS: BASOPHILS 0.1 % (0-2); EOSINOPHILS 0.4 % (0-7); HEMATOCRIT 34.4 % (36.0-48.0); HEMOGLOBIN 11.2 g/dL (12-16); IMMATURE GRANULOCYTES 0.3 % (0-5); LYMPHOCYTES 6.7 % (15-50); MCH 30.9 pg (26.0-34.0); MCHC 32.6 g/dL (31.0-37.0); MCV 94.8 fL (80.0-100.0); MEAN PLATELET VOLUME 10.6 fL (7.4-10.4); MONOCYTES 4.7 % (2-11); NEUTROPHILS 87.8 % (40-80); PLATELET COUNT 311 10x3/uL (130-400); RBC 3.63 10x6/uL (4.00-5.40); RDW 15.2 % (11.5-14.5)
[2018-09-30 15:25] LABS: ALBUMIN 3.6 g/dL (3.4-5.0); ANION GAP 16.5 mmol/L (8-16); BILIRUBIN - TOTAL 0.6 mg/dL (0.2-1.3); CALCIUM 8.7 mg/dL (8.5-10.1); CARBON DIOXIDE 25.7 mmol/L (21.0-32.0); POTASSIUM - SERUM 3.2 mmol/L (3.5-5.1); PROTEIN - SERUM 7.4 g/dL (6.4-8.2)
[2018-09-30 20:00] VITALS: BP 111/54
[2018-10-01] VITALS (7 sets, daily range): BP systolic 93–130; BP diastolic 54–71; Ht 167.6 cm; Wt 113.7 kg
[2018-10-01 06:33] LABS: BASOPHILS 0.1 % (0-2); EOSINOPHILS 1.7 % (0-7); HEMATOCRIT 28.7 % (36.0-48.0); HEMOGLOBIN 9.2 g/dL (12-16); IMMATURE GRANULOCYTES 0.3 % (0-5); LYMPHOCYTES 16.7 % (15-50); MCH 30.6 pg (26.0-34.0); MCHC 32.1 g/dL (31.0-37.0); MCV 95.3 fL (80.0-100.0); MONOCYTES 6.3 % (2-11); NEUTROPHILS 74.9 % (40-80); PLATELET COUNT 298 10x3/uL (130-400); RBC 3.01 10x6/uL (4.00-5.40); RDW 15.6 % (11.5-14.5); WBC 15.6 10x3/uL (4.8-10.8)
[2018-10-01 06:53] LABS: ALBUMIN 2.8 g/dL (3.4-5.0); ALKALINE PHOSPHATASE 53 U/L (46-116); BILIRUBIN - TOTAL 0.52 mg/dL (0.2-1.3); CALC OSMOLALITY 285 mosm/kg (275-300); CALCIUM 8.7 mg/dL (8.5-10.1); CARBON DIOXIDE 28.8 mmol/L (21.0-32.0); CHLORIDE - SERUM 105 mmol/L (98-107); GLUCOSE 101 mg/dL (74-106); POTASSIUM - SERUM 3.4 mmol/L (3.5-5.1); SODIUM 143 mmol/L (136-145); UREA NITROGEN 16 mg/dL (7-18)
[2018-10-01 06:55] LABS: ALT (SGPT) 21 U/L (10-68); CREATININE - SERUM 0.7 mg/dL (0.6-1.3); eGFR NON AFRICAN AMERICAN > 90 mL/min (90-120)
[2018-10-01 12:11] LABS: HCG URINE NEGATIVE (NEGATIVE)
[2018-10-01 12:14] LABS: UDS - AMPHET NEGATIVE QUAL (NEGATIVE); UDS - BARB NEGATIVE QUAL (NEGATIVE); UDS - BENZO POSITIVE QUAL (NEGATIVE); UDS - COCAINE NEGATIVE QUAL (NEGATIVE); UDS - OPIATE NEGATIVE QUAL (NEGATIVE); UDS - PCP NEGATIVE QUAL (NEGATIVE); UDS - THC NEGATIVE QUAL (NEGATIVE)
[2018-10-01 13:24] LABS: APPEARANCE CLEAR (CLEAR); BILIRUBIN NEGATIVE (NEGATIVE); COLOR YELLOW (YELLOW); EPITHELIAL CELLS 0-5 /hpf (0-5); GLUCOSE NEGATIVE (NEGATIVE); KETONE NEGATIVE (NEGATIVE); NITRITE NEGATIVE (NEGATIVE); PROTEIN NEGATIVE (NEGATIVE); SPECIFIC GRAVITY 1.015 (1.005-1.020); WHITE CELLS - URINE OCC /hpf (0-5)
[2018-10-01 13:25] LABS: BACTERIA MODERATE /hpf (NONE SEEN); MUCUS <1+ /lpf (NONE SEEN)
[2018-10-02 01:30] VITALS: BP 111/59
[2018-10-02 06:14] VITALS: BP 126/74
[2018-10-02 06:53] LABS: BASOPHILS 0.1 % (0-2); EOSINOPHILS 3.7 % (0-7); HEMATOCRIT 30.2 % (36.0-48.0); HEMOGLOBIN 9.5 g/dL (12-16); IMMATURE GRANULOCYTES 0.2 % (0-5); MCH 30.5 pg (26.0-34.0); MCHC 31.5 g/dL (31.0-37.0); MCV 97.1 fL (80.0-100.0); MONOCYTES 7.6 % (2-11); NEUTROPHILS 60.4 % (40-80); PLATELET COUNT 293 10x3/uL (130-400); RBC 3.11 10x6/uL (4.00-5.40); RDW 15.8 % (11.5-14.5)
[2018-10-02 08:05] LABS: ALBUMIN 2.8 g/dL (3.4-5.0); ALKALINE PHOSPHATASE 52 U/L (46-116); ALT (SGPT) 19 U/L (10-68); BILIRUBIN - TOTAL 0.21 mg/dL (0.2-1.3); CALC OSMOLALITY 287 mosm/kg (275-300); CALCIUM 8.8 mg/dL (8.5-10.1); CARBON DIOXIDE 27.2 mmol/L (21.0-32.0); CHLORIDE - SERUM 108 mmol/L (98-107); CREATININE - SERUM 0.7 mg/dL (0.6-1.3); GLUCOSE 86 mg/dL (74-106); POTASSIUM - SERUM 3.7 mmol/L (3.5-5.1); PROTEIN - SERUM 6.3 g/dL (6.4-8.2); SODIUM 145 mmol/L (136-145); UREA NITROGEN 13 mg/dL (7-18); eGFR NON AFRICAN AMERICAN > 90 mL/min (90-120)
[2018-10-02 08:21] VITALS: BP 122/76
[2018-10-02 12:41] VITALS: BP 110/74
[2018-10-02] MEDS ORDERED: ZITHROMAX500 MG PO (13:33)
[2018-10-02] MEDS ORDERED: KEFLEX500 MG PO (13:33)
[2018-10-02] MEDS ORDERED: PREDNISONE10 MG PO (13:34)
--- NOTE | 2018-10-04 11:23 | MORECARE ---
CASE MANAGEMENT DISCHARGE SUMMARY PATIENT: GRICELDA SANDOVAL UNIT: [id number] ADM DATE: 10/01/18 AGE: 48 : 70 SEX: F ROOM/BED: D.2132 AUTHOR: RAZ JACOBSON PHYSICIAN: REFERRING PHYSICIAN: CURTIS WOODS MD DATE OF SERVICE: 10/04/18 Discharge Plan Patient Name: GRICELDA SANDOVAL Facility: [facility]:[place] : 1970 Planned Disposition: Home Anticipated Discharge Date: 10/02/18 Discharge Date: 10/02/2018 Expected LOS: 1 Initial Reviewer: [email or web address] Initial Review Date: 10/04/2018 Generated: 10/04/18 12:23 pm Patient Name: GRICELDA SANDOVAL Page 32474 at 1123 All edits/amendments must be made on the electronic document DICTATION DATE: 10/04/18 112 HELICOPTER SPECIALIST: JOSE 10/04/181121 RPT#: [id number] DC DATE:10/02/18 STATUS: DIS IN [facility] [address] [place] [address] END OF REPORT
== END 2018-10-02 14:58 | disposition home or self-care (01) | DRG 190 ==
LOC: D.ER 14:16 → D.EDHOLD 16:22 → D.M2 16:22 → OBSVTIME 16:23 → D.M2 16:53
PROVIDERS: Family Medicine; ADMIT Emergency Medicine
DX: J44.0 Chronic obstructive pulmonary disease with (acute) lower respiratory infection (principal); J18.1 Lobar pneumonia, unspecified organism; F32.9 Major depressive disorder, single episode, unspecified; G40.909 Epilepsy, unspecified, not intractable, without status epilepticus; E87.6 Hypokalemia; F25.9 Schizoaffective disorder, unspecified

== ENCOUNTER 2019-01-27 13:13 | Emergency (ER) | payer MEDICARE ==
[~2019-01-27] VITALS: Ht 167.6 cm; Wt 109.1 kg
[~2019-01-27 13:13] MED LIST changes: +KEFLEX500 MG PO; +METHOTREXATE2.5 MG PO
[2019-01-27 13:42] VITALS: BP 124/85; Ht 167.6 cm; Wt 109.1 kg
[2019-01-27] MEDS ORDERED: VALTREX1000 MG PO (16:18)
== END 2019-01-27 16:31 | disposition home or self-care (01) ==
LOC: D.ER 13:13
DX: B00.1 Herpesviral vesicular dermatitis (principal); J44.9 Chronic obstructive pulmonary disease, unspecified; F17.200 Nicotine dependence, unspecified, uncomplicated

== ENCOUNTER 2019-04-25 14:09 | Emergency (ER) | payer MEDICARE ==
[~2019-04-25] VITALS: Ht 167.6 cm; Wt 113.6 kg
[~2019-04-25 14:09] MED LIST changes: +VALTREX1000 MG PO
[2019-04-25 14:14] VITALS: Ht 167.6 cm; Wt 113.6 kg
[2019-04-25 14:44] LABS: BASOPHILS 0.1 % (0-2); EOSINOPHILS 4.1 % (0-7); HEMATOCRIT 33.7 % (36.0-48.0); HEMOGLOBIN 10.9 g/dL (12-16); IMMATURE GRANULOCYTES 0.1 % (0-5); LYMPHOCYTES 35.5 % (15-50); MCH 30.4 pg (26.0-34.0); MCHC 32.3 g/dL (31.0-37.0); MCV 93.9 fL (80.0-100.0); MEAN PLATELET VOLUME 10.4 fL (7.4-10.4); MONOCYTES 8.2 % (2-11); PLATELET COUNT 236 10x3/uL (130-400); RBC 3.59 10x6/uL (4.00-5.40); WBC 7.2 10x3/uL (4.8-10.8)
[2019-04-25 15:08] LABS: APPEARANCE CLEAR (CLEAR); BACTERIA FEW /hpf (NONE SEEN); BILIRUBIN NEGATIVE (NEGATIVE); COLOR YELLOW (YELLOW); EPITHELIAL CELLS 0-5 /hpf (0-5); GLUCOSE NEGATIVE (NEGATIVE); KETONE NEGATIVE (NEGATIVE); NITRITE NEGATIVE (NEGATIVE); PROTEIN NEGATIVE (NEGATIVE); RED CELLS - URINE OCC /hpf (0-5); UROBILINOGEN NORMAL (NORMAL); WHITE CELLS - URINE 0-5 /hpf (0-5)
[2019-04-25 15:11] LABS: ALBUMIN 3.5 g/dL (3.4-5.0); ANION GAP 13.7 mmol/L (8-16); BILIRUBIN - TOTAL 0.33 mg/dL (0.2-1.3); CALCIUM 8.7 mg/dL (8.5-10.1); CARBON DIOXIDE 28.7 mmol/L (21.0-32.0); CREATININE - SERUM 1.2 mg/dL (0.6-1.3); MAGNESIUM - SERUM 1.9 mg/dL (1.8-2.4); POTASSIUM - SERUM 3.4 mmol/L (3.5-5.1); PROTEIN - SERUM 6.8 g/dL (6.4-8.2)
[2019-04-25 15:56] LABS: UDS - AMPHET NEGATIVE QUAL (NEGATIVE); UDS - BARB NEGATIVE QUAL (NEGATIVE); UDS - BENZO NEGATIVE QUAL (NEGATIVE); UDS - COCAINE NEGATIVE QUAL (NEGATIVE); UDS - OPIATE NEGATIVE QUAL (NEGATIVE); UDS - PCP NEGATIVE QUAL (NEGATIVE); UDS - THC NEGATIVE QUAL (NEGATIVE)
[2019-04-25 18:22] VITALS: BP 133/67
== END 2019-04-25 18:19 | disposition home or self-care (01) ==
LOC: D.ER 14:09
PROVIDERS: Family Medicine
DX: R56.9 Unspecified convulsions (principal); F17.290 Nicotine dependence, other tobacco product, uncomplicated; K31.9 Disease of stomach and duodenum, unspecified; I10 Essential (primary) hypertension; J44.9 Chronic obstructive pulmonary disease, unspecified

== ENCOUNTER → 2019-05-17 10:02 | Outpatient (CLI) | payer MEDICARE ==
[2019-04-25 14:14] VITALS: BMI 40.4
== END | disposition home or self-care (01) ==
LOC: D.RT 10:02
PROVIDERS: ATTEND Internal Medicine Pulmonary Disease
DX: J44.9 Chronic obstructive pulmonary disease, unspecified (principal)

== ENCOUNTER → 2019-06-27 08:56 | Outpatient (CLI) | payer MEDICARE ==
[2019-04-25 14:14] VITALS: BMI 40.4
== END | disposition home or self-care (01) ==
LOC: D.LAB 08:56 → D.CT 10:00
PROVIDERS: ATTEND Internal Medicine Pulmonary Disease
DX: R91.8 Other nonspecific abnormal finding of lung field (principal)

== ENCOUNTER 2019-07-20 08:12 | Emergency (ER) | payer MEDICARE ==
[~2019-07-20] VITALS: Ht 167.6 cm; Wt 115.5 kg
[~2019-07-20 08:12] MED LIST changes: +BUSPAR 15 MG TA15 MG PO; -BUSPAR10 MG PO; +FOLIC ACID1 MG; -FOLIC ACID1 MG PO
[2019-07-20 08:19] VITALS: Ht 167.6 cm; Wt 115.5 kg
[2019-07-20] MEDS ORDERED: VOLTAREN75 MG PO (08:23)
[2019-07-20] MEDS ORDERED: HALDOL5 MG PO (08:23)
[2019-07-20] MEDS ORDERED: ALENDRONATE SOD35 MG PO (08:24)
[2019-07-20] MEDS ORDERED: CYCLOBENZAPRINE10 MG PO (08:54)
[2019-07-20 09:13] VITALS: BP 140/75
== END 2019-07-20 09:13 | disposition home or self-care (01) ==
LOC: D.ER 08:12
DX: M70.52 Other bursitis of knee, left knee (principal); I10 Essential (primary) hypertension; J44.9 Chronic obstructive pulmonary disease, unspecified; K21.9 Gastro-esophageal reflux disease without esophagitis; F32.9 Major depressive disorder, single episode, unspecified

== ENCOUNTER → 2019-08-08 07:51 | Outpatient (CLI) | payer MEDICARE ==
[2019-07-20 08:19] VITALS: BMI 41.1
[~2019-08-08 07:51] MED LIST changes: +ALBUTEROL SULF8.5 GM INH; +ALENDRONATE SOD35 MG PO; +BACLOFEN20 M1 PO; +FLUTICASONE PRO16 GM NASAL; +HALDOL5 MG PO; +HUMIRA PEN INJ 40M INJ; +IPRAT-ALBUT 0.5-3 ML UPD; +NEURONTIN600 MG PO; +VITAMIN D250000 UNIT PO
== END | disposition home or self-care (01) ==
LOC: D.NM 07:51
PROVIDERS: ATTEND Clinical Nurse Specialist Family Health
DX: Z96.652 Presence of left artificial knee joint (principal)

== ENCOUNTER → 2019-08-12 20:21 | Outpatient (CLI) | payer MEDICARE ==
[2019-07-20 08:19] VITALS: BMI 41.1
== END | disposition home or self-care (01) ==
LOC: D.LABREF 20:21
PROVIDERS: ATTEND Orthopaedic Surgery
DX: M25.562 Pain in left knee (principal)

== ENCOUNTER 2019-08-15 11:51 | Inpatient (IN) | payer MEDICARE ==
[~2019-08-15] VITALS: Ht 167.6 cm; Wt 117.9 kg
[~2019-08-15 11:51] MED LIST changes: -ALBUTEROL SULF8.5 GM INH; -BACLOFEN20 M1 PO; -FLUTICASONE PRO16 GM NASAL; -HUMIRA PEN INJ 40M INJ; -IPRAT-ALBUT 0.5-3 ML UPD; -NEURONTIN600 MG PO; -VITAMIN D250000 UNIT PO
[2019-08-23] MEDS ORDERED: BACLOFEN20 M1 PO (12:43)
[2019-08-23] MEDS ORDERED: PROZAC40 MG PO (12:46)
[2019-08-23] MEDS ORDERED: NEURONTIN600 MG PO (12:46)
[2019-08-23] MEDS ORDERED: VITAMIN D250000 UNIT PO (12:48)
[2019-08-23] MEDS ORDERED: FLUTICASONE PRO16 GM NASAL (12:48)
[2019-08-23] MEDS ORDERED: ALBUTEROL SULF8.5 GM INH (12:50)
[2019-08-23] MEDS ORDERED: IPRAT-ALBUT 0.5-3 ML UPD (12:51)
[2019-08-23] MEDS ORDERED: HUMIRA PEN INJ 40M INJ (13:05)
[2019-08-24 09:00] LABS: BASOPHILS 0.2 % (0-2); EOSINOPHILS 4.5 % (0-7); HEMATOCRIT 33.5 % (36.0-48.0); HEMOGLOBIN 10.7 g/dL (12-16); IMMATURE GRANULOCYTES 0.5 % (0-5); LYMPHOCYTES 28.4 % (15-50); MCH 31.4 pg (26.0-34.0); MCHC 31.9 g/dL (31.0-37.0); MCV 98.2 fL (80.0-100.0); MEAN PLATELET VOLUME 10.2 fL (7.4-10.4); MONOCYTES 4.5 % (2-11); NEUTROPHILS 61.9 % (40-80); PLATELET COUNT 251 10x3/uL (130-400); RBC 3.41 10x6/uL (4.00-5.40); RDW 15.4 % (11.5-14.5); WBC 4.4 10x3/uL (4.8-10.8)
[2019-08-24 09:12] LABS: ANION GAP 9.1 mmol/L (8-16); CALCIUM 9.1 mg/dL (8.5-10.1); CARBON DIOXIDE 30.4 mmol/L (21.0-32.0); CREATININE - SERUM 1.2 mg/dL (0.6-1.3); POTASSIUM - SERUM 3.5 mmol/L (3.5-5.1)
[2019-08-24 09:19] LABS: INR 0.99 (0.85-1.17); PROTIME 12.6 SECONDS (11.6-15.0)
[2019-08-24 09:58] LABS: APPEARANCE CLEAR (CLEAR); BACTERIA FEW /hpf (NEGATIVE); BILIRUBIN NEGATIVE (NEGATIVE); COLOR STRAW (YELLOW); GLUCOSE NEGATIVE (NEGATIVE); KETONE NEGATIVE (NEGATIVE); NITRITE NEGATIVE (NEGATIVE); PROTEIN NEGATIVE (NEGATIVE); RED CELLS - URINE RARE /hpf (0-5); UROBILINOGEN NORMAL (NORMAL); WHITE CELLS - URINE 0-5 /hpf (NEGATIVE)
[2019-08-24 09:59] LABS: MUCUS <1+ /lpf (NONE SEEN)
[2019-08-29] VITALS (10 sets, daily range): BP systolic 114–148; BP diastolic 68–81; BMI 42.0
[2019-08-29] MEDS ORDERED: MUCINEX DM ER1 EAC1 PO (07:46)
--- NOTE | 2019-08-29 08:34 | NUR ---
SUICIDE SCREENING POSITIVE FOR LIFETIME QUESTION, CREATIVE SERVICES PRODUCER NOTIFIED
--- NOTE | 2019-08-29 08:54 | NUR ---
DR. BAKER NOTIFIED AND REVIEWED PT'S BEHAVIOR AND ASSESSMENT RESULTS. PT IS A LOW RISK PER DR. BAKER. DR. BAKER STATED TO GIVE RESOURCES TO PT AT TIME OF DISCHARGE. NO FURTHER ORDERS AT THIS TIME. RESOURCES REVIEWED WITH PT AND SHE VERBALIZED UNDERSTANDING.
--- NOTE | 2019-08-29 11:10 | NUR ---
PT SCRUBBED FROM UPPER THIGH TO TOES WITH HIBICLEANSE AND ALCOHOL PRIOR TO PREPPING SKIN WITH CHOLRAPREP X 2. PLASMA BLADE SET TO 6/8 REM POLYHESIVE PAD LOT #[id number] EXP 10-20-2020 PAD PLACED ON PT RIGHT THIGH
--- NOTE | 2019-08-29 12:20 | NUR ---
PATIENT ADMITTED TO ROOM 2209. DRSG C/D/I TO LEFT KNEE. SCDS IN PLACE. DENIES PAIN. WILL CONTINUE TO MONITOR.
--- NOTE | 2019-08-29 15:12 | NUR ---
PATIENT SLEEPING. WILL CONTINUE TO MONITOR.
--- NOTE | 2019-08-29 15:36 | NUR ---
POST OP VITALS REMAIN STABLE. DENIES NEEDS. WILL CONTINUE TO MONITOR.
--- NOTE | 2019-08-29 16:11 | OP ---
PATIENT NAME: GRICELDA SANDOVAL MEDICAL RECORD: [id number] :70 LOCATION:D.MS [address] ADMISSION DATE:08/29/19 SURGEON: JUVENAL ÁLVAREZ MD DATE OF OPERATION: 08/29/2019 PREOPERATIVE DIANOSIS: Painful left total knee arthroplasty. POSTOPERATIVE DIAGNOSIS: Painful left total knee arthroplasty. PROCEDURE: Revision total knee arthroplasty, left knee -- poly exchange. SURGEON: Juvenal Álvarez MD ANESTHESIA: Rich Planzo. INTRAOPERATIVE COMPLICATIONS: None. SUMMARY OF PATHOLOGIC FINDINGS: Upon entering the knee, the polyethylene tray had obviously become dislodged and had been mobile for some time with wearing seen about the anterolateral aspect of the inferior surface of the polyethylene pitting was seen on both sides consistent with the polyethylene having been nonsecured for some time. Replacement of the 11 PS poly was done with a size 18 poly. OPERATIVE SUMMARY IN DETAIL: After obtaining the appropriate preoperative orthopedic surgery consent as well as anesthetic consultation, evaluation and clearance, the patient was brought to the operating room and placed on the operating table in a supine position. After general laryngeal mask airway was administered, tourniquet was placed on the proximal aspect of the right lower extremity. Right lower extremity was then prepped and draped in routine sterile fashion. The leg was elevated and exsanguinated. Tourniquet was inflated to 350 mmHg. Midline incision was made over the previous incision, it was taken down for paramedian arthrotomy. Paramedian arthrotomy was performed. Patella was subluxed laterally and the distal femur and proximal tibia was exposed. At this point, the proximal tibial polyethylene was found to be out of its base plate and articulating somewhat anterior laterally. It was then removed quite easily. At this point, a complete exposure of the baseplate was done. Trials were undertaken starting first with a 13, then 16, then 18 and 18 was felt to be the most appropriate, and 18 was then put into place. The knee was taken through range of motion and found to be stable in all planes. Wound was then copiously irrigated. A gram of vancomycin, a gram of tobramycin were placed into the knee. Paramedian arthrotomy was closed with #5 Ethibond followed by #1 Vicryl, 2-0 Vicryl, and skin gabriella. Sterile dressings were applied. Tourniquet was deflated. The patient was awakened and taken to recovery room in stable condition. All final needle and sponge counts were correct. TRANSINT:[id number] Voice Confirmation ID: [id number] DOCUMENT ID: [id number] OPERATIVE REPORT [id number] GRICELDA SANDOVAL MD, JUVENAL EMMANUEL at 1611 CC: [id number] DICTATION DATE: 08/29/19 110 [place] TILE FLOOR LAYER: 08/29/19 1225 ADM IN [place] [id number] [place] [address]
--- NOTE | 2019-08-29 18:05 | NUR ---
RESTING IN BED. DENIES NEEDS. BED LOW. CALL MENA AND PERSONAL ITEMS IN REACH. FALL PRECAUTIONS IN PLACE.
[2019-08-30] VITALS: BP 122/76
--- NOTE | 2019-08-30 02:00 | NUR ---
LEFT KNEE INCISION BLEEDING BATH WITH LINENS CHANGE DONE ICE BAG REFILLED AND PLACED TO LEFT KNEE AREA.
[2019-08-30 04:00] VITALS: BP 134/74
--- NOTE | 2019-08-30 04:00 | NUR ---
C/O PAIN PERCOCET TAB ONE PO GIVEN FOR PAIN CONTROL.
[2019-08-30 04:33] LABS: HEMOGLOBIN 10.3 g/dL (12-16); MCH 31.2 pg (26.0-34.0); MCHC 32.2 g/dL (31.0-37.0); MEAN PLATELET VOLUME 10.3 fL (7.4-10.4); RBC 3.3 10x6/uL (4.00-5.40); WBC 15.6 10x3/uL (4.8-10.8)
--- NOTE | 2019-08-30 06:00 | NUR ---
MEDS GIVEN PER MAR. NO CHANGES IN ASSESSMENT.
--- NOTE | 2019-08-30 07:58 | NUR ---
ASSISTED TO BEDPAN. LEFT KNEE WITH MEDIUM SIZED BLOOD SPOT NOTED UNDERNEATH ON BED. SMALL SPOT NOTED ON TOP OF KNEE. PACKED WITH ICE. WILL NOTIFY ELANA KENNY. LUNGS CLEAR BILATERALLY. HEART SOUNDS S1 AND S2 HEARD IN ALL CROSS. BOWEL SOUNDS ACTIVE X 4. IV TO RIGHT AC PATENT WITHOUT REDNESS. BED LOW. FALL PRECAUTIONS IN PLACE. CALL MENA AND PERSONAL ITEMS IN REACH. WILL CONTINUE TO MONITOR.
--- NOTE | 2019-08-30 09:00 | NUR ---
SPOKE WITH ELANA KENNY WHO SAW PATIENT IN ROOM. STATES OK TO CHANGE DRSG TO LEFT KNEE WITH AQUACEL AG DRSG AND CLEANSE INCISION WITH BETADINE. WOUND CLEANSED AND DRSG CHANGED. BED CHANGED.
[2019-08-30 09:16] VITALS: BP 140/88
--- NOTE | 2019-08-30 10:13 | NUR ---
PATIENT STATES CANNOT GET UP TO CHAIR D/T FEELING DIZZY. BP 134/70 HR 77 O2 97%. WILL ATTEMPT AGAIN LATER.
--- NOTE | 2019-08-30 11:51 | NUR ---
UP IN CHAIR AT BEDSIDE.
[2019-08-30 12:22] VITALS: Ht 167.6 cm; Wt 117.9 kg
[2019-08-30 12:50] VITALS: BP 132/78
--- NOTE | 2019-08-30 13:22 | NUR ---
ASSISTED TO BSC AND BACK TO CHAIR.
--- NOTE | 2019-08-30 15:32 | NUR ---
PATIENT DRSG TO LEFT KNEE SATURATED WITH BLOOD. DRSG REMOVED. SITE OF BLOOD OOZING APPEARS TO BE AT TOP OF KNEE BETWEEN TWO MILLIE. AQUACEL AG APPLIED PER ORDER. PRESSURE DRSG APPLIED ON TOP OF AQUACEL AT SITE WHERE BLOOD APPEARS TO BE COMING FROM. ICE APPLIED ON TOP OF PRESSURE DRSG. ELANA KENNY CALLED. STATES LEAVE PRESSURE DRSG AND ICE AND IF BLEED DOES NOT STOP NEXT OPTION WILL BE WOUND VAC.
--- NOTE | 2019-08-30 16:08 | MORECARE ---
CASE MANAGEMENT DISCHARGE SUMMARY PATIENT: GRICELDA SANDOVAL UNIT: [id number] ADM DATE: 08/29/19 AGE: 49 : 70 SEX: F ROOM/BED: D.2203 AUTHOR: INDIRA,DOC PHYSICIAN: REFERRING PHYSICIAN: JUVENAL ÁLVAREZ MD DATE OF SERVICE: 08/30/19 Discharge Plan Patient Name: GRICELDA SANDOVAL Facility: [facility]:[place] : 1970 Planned Disposition: Home Anticipated Discharge Date: Discharge Date: Expected LOS: Initial Reviewer: [email or web address] Initial Review Date: 08/29/2019 Generated: 08/30/19 5:08 pm Comments DCP- Discharge Planning Updated by [email or web address]: Omayra Skinner on 08/30/19 3:[address] Patient Name: GRICELDA SANDOVAL Admission Status: Elective Accout number: [id number] Admission Date: 08-29-2019 : 1970 Admission Diagnosis: Attending: JUVENAL ÁLVAREZ Current LOS: 1 Anticipated DC Date: Planned Disposition: Home Primary Insurance: MEDICARE A & B Discharge Planning Comments: CM met with patient to complete initial dc planning assessment. CM educated patient on the CM role and verbal consent given by patient to complete assessment. Patient lives at home with her adult son where she is independent with her care. At discharge patient plans to return home and feels this is a safe discharge. Her friend Beto will be her team truck driver home. CM discussed availability of home health, rehab services, and medical equipment. She has had her walker, BSC, & cpm delivered to her home already. She wears O2 at night and she gets through [facility]. GAVIN signed and placed in chart. Patient will do her OP PT at [facility], I have called Carl to make an appointment for her OP PT. Patient denied known discharge needs at this time. CM will continue to follow and will assist as needed with dc plans/needs. Breastfeeding Peer Counselor: Omarya Skinner DCPIA - Discharge Planning Initial Assessment Updated by [email or web address]: Omayra Skinner on 08/30/19 4:05 pm * Is the patient Alert and Oriented? Yes * How many steps to enter\exit or inside your home? * PCP [place] * Pharmacy [facility] * Preadmission Environment Home with Family * ADLs Independent * Equipment Bedside Commode Oxygen Walker * Other Equipment CPM * List name and contact numbers for known caregivers / representatives who currently or will assist patient after discharge: SHON (SISTER) [phone] * Verbal permission to speak to the caregivers and representatives has been obtained from the patient. N/A * Community resources currently utilized None * Additional services required to return to the preadmission environment? Yes * Can the patient safely return to the preadmission environment? Yes * Has this patient been hospitalized within the prior 30 days at any hospital? No Patient Name: GRICELDA SANDOVAL Page [id number] at 1608 All edits/amendments must be made on the electronic document DICTATION DATE: 08/30/191607 REMOTE MORTGAGE UNDERWRITER: JOSE 08/30/191607 RPT#: [id number] DC DATE: STATUS: ADM IN [facility] [address] [place] [address] END OF REPORT
[2019-08-30 17:11] VITALS: BP 154/90
--- NOTE | 2019-08-30 18:30 | NUR ---
RESTING IN BED. DRSG TO LEFT KNEE REMAINS C/D/I. ICE PACK IN PLACE. DENIES NEEDS. BED LOW. FALL PRECAUTIONS IN PLACE. CALL MENA AND PERSONAL IN REACH.
--- NOTE | 2019-08-30 19:57 | NUR ---
LYING IN BED WITH EYES OPEN, FLAT AFFECT, SHOWS NO S/S OF ANY DISTRESS. DRESSING TO LLE IS CLEAN DRY AND INTACT. BP IS 130/84 AT THIS TIME. DENIES ANY PAIN. WILL NOTE ANY CHANGE.
[2019-08-30 20:00] VITALS: BP 128/86
--- NOTE | 2019-08-30 23:26 | NUR ---
COMPLAINTS OF PAIN, MEDICATION GIVEN PER ORDERS. WILL NOTE ANY CHANGE.
--- NOTE | 2019-08-31 02:04 | NUR ---
I have reviewed this patient and I concur with the Shift Assessment completed by the Licensed Practical Nurse today this shift.
[2019-08-31 04:00] VITALS: BP 115/76
[2019-08-31 05:10] LABS: HEMATOCRIT 32.7 % (36.0-48.0); HEMOGLOBIN 10.2 g/dL (12-16); MCHC 31.2 g/dL (31.0-37.0); MEAN PLATELET VOLUME 10.5 fL (7.4-10.4); RBC 3.29 10x6/uL (4.00-5.40); RDW 15.8 % (11.5-14.5)
[2019-08-31 05:11] LABS: MCV 99.4 fL (80.0-100.0); WBC 10.5 10x3/uL (4.8-10.8)
[2019-08-31 05:12] LABS: ANION GAP 9.7 mmol/L (8-16); CALCIUM 7.8 mg/dL (8.5-10.1); CARBON DIOXIDE 31.4 mmol/L (21.0-32.0); CREATININE - SERUM 0.9 mg/dL (0.6-1.3); POTASSIUM - SERUM 3.1 mmol/L (3.5-5.1)
--- NOTE | 2019-08-31 07:26 | NUR ---
PT RESTING IN BED. NO SIGNS OF DISTRESS. IV TO RIGHT AC PATENT NO REDNESS OR TENDERNESS. ON 2L NC. INCISION TO LEFT KNEE. DRESSING CLEAN DRY AND INTACT. DENIES ANY FURTHER NEED AT THIS TIME. CALL LIGHT IN REACH. BED LOW POSITION. NO FAMILY AT BEDSIDE AT THIS TIME.
[2019-08-31 09:22] VITALS: BP 131/79
--- NOTE | 2019-08-31 12:21 | MORECARE ---
CASE MANAGEMENT DISCHARGE SUMMARY PATIENT: GRICELDA SANDOVAL UNIT: [id number] ADM DATE: 08/29/19 AGE: 49 : 70 SEX: F ROOM/BED: D.2209 AUTHOR: INDIRA,DOC PHYSICIAN: REFERRING PHYSICIAN: JUVENAL ÁLVAREZ MD DATE OF SERVICE: 08/31/19 Discharge Plan Patient Name: GRICELDA SANDOVAL Facility: [facility]:[place] : 1970 Planned Disposition: Home Anticipated Discharge Date: Discharge Date: Expected LOS: Initial Reviewer: [email or web address] Initial Review Date: 08/29/2019 Generated: 08/31/19 1:20 pm Comments DCP- Discharge Planning Updated by [email or web address]: Omayra Skinner on 08/31/19 11:[address] OP PT APPOINTMENT HAS BEEN SET UP FOR Sep @ 1300. I SPOKE WITH JITENDRA COPY OF SCRIPT WITH TIME WILL BE GIVEN TO PATIENT IN HER DC PACKET, SHE HAS ALL HER DME AT HOME THAT WAS SET UP BY HENRI PRIOR TO SURGERY DCP- Discharge Planning Updated by [email or web address]: Omayra Skinner on 08/30/19 3:[address] Patient Name: GRICELDA SANDOVAL Admission Status: Elective Accout number: [id number] Admission Date: 08-29-2019 : 1970 Admission Diagnosis: Attending: JUVENAL ÁLVAREZ Current LOS: 1 Anticipated DC Date: Planned Disposition: Home Primary Insurance: MEDICARE A & B Discharge Planning Comments: CM met with patient to complete initial dc planning assessment. CM educated patient on the CM role and verbal consent given by patient to complete assessment. Patient lives at home with her adult son where she is independent with her care. At discharge patient plans to return home and feels this is a safe discharge. Her friend Beto will be her motor driver home. CM discussed availability of home health, rehab services, and medical equipment. She has had her walker, BSC, & cpm delivered to her home already. She wears O2 at night and she gets through [employer]. GAVIN signed and placed in chart. Patient will do her OP PT at [facility], I have called Jitendra to make an appointment for her OP PT. Patient denied known discharge needs at this time. CM will continue to follow and will assist as needed with dc plans/needs. Clinical Trial Associate: Omayra Skinner DCPIA - Discharge Planning Initial Assessment Updated by [email or web address]: Omayra Skinner on 08/30/19 4:05 pm * Is the patient Alert and Oriented? Yes * How many steps to enter\exit or inside your home? * PCP [place] * Pharmacy [facility] * Preadmission Environment Home with Family * ADLs Independent * Equipment Bedside Commode Oxygen Walker * Other Equipment CPM * List name and contact numbers for known caregivers / representatives who currently or will assist patient after discharge: SHON (SISTER) [phone] * Verbal permission to speak to the caregivers and representatives has been obtained from the patient. N/A * Community resources currently utilized None * Additional services required to return to the preadmission environment? Yes * Can the patient safely return to the preadmission environment? Yes * Has this patient been hospitalized within the prior 30 days at any hospital? No Last DP export: 08/30/19 3:08 Patient Name: GRICELDA SANDOVAL Page [phone] at 1221 All edits/amendments must be made on the electronic document DICTATION DATE: 08/31/19 1220 VENTILATOR SPECIALIST: JOSE 08/31/19 1220 RPT#: [id number] DC DATE: STATUS: ADM IN [facility] [address] [place] [address] END OF REPORT
[2019-08-31 13:13] VITALS: BP 119/71
--- NOTE | 2019-08-31 15:50 | MORECARE ---
CASE MANAGEMENT DISCHARGE SUMMARY PATIENT: GRICELDA SANDOVAL UNIT: [id number] ADM DATE: 08/29/19 AGE: 49 : 70 SEX: F ROOM/BED: D.7272 AUTHOR: INDIRA,DOC PHYSICIAN: REFERRING PHYSICIAN: JUVENAL ÁLVAREZ MD DATE OF SERVICE: 08/31/19 Discharge Plan Patient Name: GRICELDA SANDOVAL Facility: [facility]:[place] : 1970 Planned Disposition: Home Anticipated Discharge Date: Discharge Date: Expected LOS: Initial Reviewer: [email or web address] Initial Review Date: 08/29/2019 Generated: 08/31/19 4:49 pm Comments DCP- Discharge Planning Updated by [email or web address]: Omayra Skinner on 08/31/19 2:[address] IMM SERVED AND EXPLAINED COPY PLACED IN CHART DCP- Discharge Planning Updated by [email or web address]: Omayra Skinner on 08/31/19 11:[address] OP PT APPOINTMENT HAS BEEN SET UP FOR Sep @ 1300. I SPOKE WITH JITENDRA COPY OF SCRIPT WITH TIME WILL BE GIVEN TO PATIENT IN HER DC PACKET, SHE HAS ALL HER DME AT HOME THAT WAS SET UP BY [facility] PRIOR TO SURGERY DCP- Discharge Planning Updated by [email or web address]: Omayra Skinner on 08/30/19 3:[address] Patient Name: GRICELDA SANDOVAL Admission Status: Elective Accout number: [id number] Admission Date: 08-29-2019 : 1970 Admission Diagnosis: Attending: JUVENAL ÁLVAREZ Current LOS: 1 Anticipated DC Date: Planned Disposition: Home Primary Insurance: MEDICARE A & B Discharge Planning Comments: CM met with patient to complete initial dc planning assessment. CM educated patient on the CM role and verbal consent given by patient to complete assessment. Patient lives at home with her adult son where she is independent with her care. At discharge patient plans to return home and feels this is a safe discharge. Her friend Beto will be her water taxi driver home. CM discussed availability of home health, rehab services, and medical equipment. She has had her walker, BSC, & cpm delivered to her home already. She wears O2 at night and she gets through [facility]. GAVIN signed and placed in chart. Patient will do her OP PT at [facility], I have called Jitendra to make an appointment for her OP PT. Patient denied known discharge needs at this time. CM will continue to follow and will assist as needed with dc plans/needs. Marine Equipment Engineer: Omayra Skinner DCPIA - Discharge Planning Initial Assessment Updated by [email or web address]: Omayra Skinner on 08/30/19 4:05 pm * Is the patient Alert and Oriented? Yes * How many steps to enter\exit or inside your home? * PCP [place] * Pharmacy [facility] * Preadmission Environment Home with Family * ADLs Independent * Equipment Bedside Commode Oxygen Walker * Other Equipment CPM * List name and contact numbers for known caregivers / representatives who currently or will assist patient after discharge: SHON (SISTER) [phone] * Verbal permission to speak to the caregivers and representatives has been obtained from the patient. N/A * Community resources currently utilized None * Additional services required to return to the preadmission environment? Yes * Can the patient safely return to the preadmission environment? Yes * Has this patient been hospitalized within the prior 30 days at any hospital? 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
[2019-08-31 16:45] VITALS: BP 113/69
--- NOTE | 2019-08-31 19:38 | NUR ---
I have reviewed this patient and I concur with the Shift Assessment completed by the Licensed Practical Nurse today this shift.
[2019-08-31 19:46] VITALS: BP 108/65
--- NOTE | 2019-08-31 19:55 | NUR ---
RESTING IN BED WITH EYES OPEN, CPM ENGAGED TO LLE. NO S/S OF ANY ACTIVE BLEEDING. DENIES ANY PAIN, WILL NOTE ANY CHANGE.
[2019-09-01] VITALS: BP 112/53
--- NOTE | 2019-09-01 02:08 | NUR ---
REQUESTED MEDICATION FOR PAIN TO LLE. GIVEN PER ORDERS. WILL NOTE ANY CHANGE.
--- NOTE | 2019-09-01 02:55 | NUR ---
I have reviewed this patient and I concur with the Shift Assessment completed by the Licensed Practical Nurse today this shift.
[2019-09-01 04:00] VITALS: BP 106/64
--- NOTE | 2019-09-01 04:53 | NUR ---
RESTED WELL THIS SHIFT, REQUESTED PAIN MEDS AT 0200 WITH NO FURTHER COMPLAINTS. THIS SHIFT. SHOWS NO S/S OF ANY ACUTE DISTRESS. WILL NOTE ANY CHANGE.
--- NOTE | 2019-09-01 05:50 | NUR ---
PAIN MEDICATION GIVEN 2/2 CPM USE. WILL NOTE ANY CHANGE.
--- NOTE | 2019-09-01 07:20 | NUR ---
PT RESTING IN BED. NO SIGNS OF DISTRESS. NO IV AT THIS TIME. ON CPM MACHINE AT THIS TIME. INCISION TO LEFT KNEE. DRESSING CLEAN AND INTACT. ON 2L NC. DENIES ANY OTHER NEED AT THIS TIME CALL LIGHT IN REACH. BED LOW POSITION. NO FAMILY AT BEDSIDE AT THIS ITME.
[2019-09-01 08:42] VITALS: BP 107/64
[2019-09-01 12:29] VITALS: BP 119/77
--- NOTE | 2019-09-01 17:33 | NUR ---
PT IS WITHIOUT DISTRESS.ASSISTED WITH MOUNTAIN DEW AND BED RAIL. INSTRUCTED CALL LIGHT USE.
[2019-09-01 17:35] VITALS: BP 119/59
--- NOTE | 2019-09-01 19:30 | NUR ---
ON CPM AT THIS TIME. ABLE TO VOICE ALL NEEDS. DENIES ANY PAIN AT THIS TIME. WILL NOTE ANY CHANGE.
[2019-09-01 20:29] VITALS: BP 138/71
--- NOTE | 2019-09-01 22:03 | NUR ---
AT 2124 PAIN MEDICATION WAS GIVEN AND DEEMED EFFECTIVE. WILL NOTE ANY CHANGE.
--- NOTE | 2019-09-02 00:30 | NUR ---
I have reviewed this patient and I concur with the Shift Assessment completed by the Licensed Practical Nurse today this shift.
--- NOTE | 2019-09-02 04:26 | NUR ---
RESTED WELL THIS SHIFT. VOICED NO COMPLAINTS. WILL NOTE ANY CHANGE.
[2019-09-02 06:20] VITALS: BP 115/68
--- NOTE | 2019-09-02 06:23 | NUR ---
PAIN MEDICATION GIVEN PRIOR TO CPM USE, EFFECTIVE.
[2019-09-02 09:01] VITALS: BP 120/57
--- NOTE | 2019-09-02 10:55 | NUR ---
PATIENT ASSISTED TO BATHROOM AND BACK TO CHAIR. WAITING ON K LEVELS TO COME UP BEFORE ABLE TO DISCHARGE. CL IN REACH. NO FURTHER NEEDS AT THIS TIME. WCTM
--- NOTE | 2019-09-02 12:12 | MORECARE ---
CASE MANAGEMENT DISCHARGE SUMMARY PATIENT: GRICELDA SANDOVAL UNIT: [id number] ADM DATE: 08/29/19 AGE: 49 : 70 SEX: F ROOM/BED: D.2209 AUTHOR: INDIRA,DOC PHYSICIAN: REFERRING PHYSICIAN: JUVENAL ÁLVAREZ MD DATE OF SERVICE: 09/02/19 Discharge Plan Patient Name: GRICELDA SANDOVAL Facility: [facility]:[place] : 1970 Planned Disposition: Home Anticipated Discharge Date: Discharge Date: Expected LOS: Initial Reviewer: [email or web address] Initial Review Date: 08/29/2019 Generated: 09/02/19 1:12 pm Comments DCP- Discharge Planning Updated by [email or web address]: Omayra Skinner on 09/02/19 11:[address] PATIENT DISCAHRGING TODAY, NO NEW NEEDS IDENTIFIED CM TO FOLLOW AND ASSIST DCP- Discharge Planning Updated by [email or web address]: Omayra Skinner on 08/31/19 2:[address] IMM SERVED AND EXPLAINED COPY PLACED IN CHART DCP- Discharge Planning Updated by [email or web address]: Omayra Skinner on 08/31/19 11:[address] OP PT APPOINTMENT HAS BEEN SET UP FOR Sep @ 1300. I SPOKE WITH JITENDRA COPY OF SCRIPT WITH TIME WILL BE GIVEN TO PATIENT IN HER DC PACKET, SHE HAS ALL HER DME AT HOME THAT WAS SET UP BY [facility] PRIOR TO SURGERY DCP- Discharge Planning Updated by [email or web address]: Omayra Skinner on 08/30/19 3:[address] Patient Name: GRICELDA SANDOVAL Admission Status: Elective Accout number: [id number] Admission Date: 08-29-2019 : 1970 Admission Diagnosis: Attending: JUVENAL ÁLVAREZ Current LOS: 1 Anticipated DC Date: Planned Disposition: Home Primary Insurance: MEDICARE A & B Discharge Planning Comments: CM met with patient to complete initial dc planning assessment. CM educated patient on the CM role and verbal consent given by patient to complete assessment. Patient lives at home with her adult son where she is independent with her care. At discharge patient plans to return home and feels this is a safe discharge. 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 CM discussed availability of home health, rehab services, and medical equipment. She has had her walker, BSC, & cpm delivered to her home already. She wears O2 at night and she gets through [facility]. GAVIN signed and placed in chart. Patient will do her OP PT at [facility], I have called Jitendra to make an appointment for her OP PT. Patient denied known discharge needs at this time. CM will continue to follow and will assist as needed with dc plans/needs. Hollow Tile Partition Erector: Omayra Skinner DCPIA - Discharge Planning Initial Assessment Updated by [email or web address]: Omayra Skinner on 08/30/19 4:05 pm * Is the patient Alert and Oriented? Yes * How many steps to enter\exit or inside your home? * PCP [place] * [facility]acy [facility] * Preadmission Environment Home with Family * ADLs Independent * Equipment Bedside Commode Oxygen Walker * Other Equipment CPM * List name and contact numbers for known caregivers / representatives who currently or will assist patient after discharge: SHON (SISTER) [phone] * Verbal permission to speak to the caregivers and representatives has been obtained from the patient. N/A * Community resources currently utilized None * Additional services required to return to the preadmission environment? Yes * Can the patient safely return to the preadmission environment? Yes * Has this patient been hospitalized within the prior 30 days at any hospital? No Coverage Notice Reviewer: [id number] - Omayra Skinner Notice Issued Date-Time: 08/31/2019 15:45 Notice Type: IM Discharge Notice Notice Delivered To: Patient Relationship to Patient: Ski Patroller Name: Delivery Method: HAND - Hand Delivered Che Days: Prior Verbal Notification: Recipient Understood Notice: Yes Recipient Signature: Yes Med Rec Note Co-signed by Attending: Coverage Notice Comment: Last DP export: 08/31/19 2:50 Patient Name: GRICELDA SANDOVAL Page [id number] at 1212 All edits/amendments must be made on the electronic document DICTATION DATE: 09/02/19 1212 [employer]: JOSE 09/02/19 1212 RPT#: [id number] DC DATE: STATUS: ADM IN [facility] [address] [place] [address] END OF REPORT
--- NOTE | 2019-09-02 13:10 | NUR ---
DISCHARGE INSTRUCTIONS GIVEN. PATIENT VERBALIZED UNDERSTANDING. WAITING ON K LEVEL BEFORE LEAVING. CL IN REACH. NO FURTHER NEEDS AT THIS TIME.
[2019-09-02 13:57] VITALS: BP 122/75
--- NOTE | 2019-09-03 15:44 | MORECARE ---
CASE MANAGEMENT DISCHARGE SUMMARY PATIENT: GRICELDA SANDOVAL UNIT: [id number] ADM DATE: 08/29/19 AGE: 49 : 70 SEX: F ROOM/BED: D.1109 AUTHOR: INDIRA,DOC PHYSICIAN: REFERRING PHYSICIAN: JUVENAL ÁLVAREZ MD DATE OF SERVICE: 09/03/19 Discharge Plan Patient Name: GRICELDA SANDOVAL Facility: [facility]:[place] : 1970 Planned Disposition: Home Anticipated Discharge Date: 09/02/19 Discharge Date: 09/02/2019 Expected LOS: 4 Initial Reviewer: [email or web address] Initial Review Date: 08/29/2019 Generated: 09/03/19 4:43 pm Comments DCP- Discharge Planning Updated by [email or web address]: Omayra Skinner on 09/02/19 11:[address] PATIENT DISCAHRGING TODAY, NO NEW NEEDS IDENTIFIED CM TO FOLLOW AND ASSIST DCP- Discharge Planning Updated by [id number]: Omayra Skinner on 08/31/19 2:[address] IMM SERVED AND EXPLAINED COPY PLACED IN CHART DCP- Discharge Planning Updated by [email or web address]: Omayra Skinner on 08/31/19 11:[address] OP PT APPOINTMENT HAS BEEN SET UP FOR Sep @ 1300. I SPOKE WITH JITENDRA COPY OF SCRIPT WITH TIME WILL BE GIVEN TO PATIENT IN HER DC PACKET, SHE HAS ALL HER DME AT HOME THAT WAS SET UP BY [facility] PRIOR TO SURGERY DCP- Discharge Planning Updated by [email or web address]: Omayra Skinner on 08/30/19 3:[address] Patient Name: GRICELDA SANDOVAL Admission Status: Elective Accout number: [id number] Admission Date: 08-29-2019 : 1970 Admission Diagnosis: Attending: JUVENAL ÁLVAREZ Current LOS: 1 Anticipated DC Date: Planned Disposition: Home Primary Insurance: MEDICARE A & B Discharge Planning Comments: CM met with patient to complete initial dc planning assessment. CM educated patient on the CM role and verbal consent given by patient to complete assessment. Patient lives at home with her adult son where she is independent with her care. At discharge patient plans to return home and feels this is a safe discharge. Her friend Beto will be her winch driver home. CM discussed availability of home health, rehab services, and medical equipment. She has had her walker, BSC, & cpm delivered to her home already. She wears O2 at night and she gets through [facility]. GAVIN signed and placed in chart. Patient will do her OP PT at [facility], I have called Jitendra to make an appointment for her OP PT. Patient denied known discharge needs at this time. CM will continue to follow and will assist as needed with dc plans/needs. Weed Controller: Omayra Skinner DCPIA - Discharge Planning Initial Assessment Updated by [email or web address]: Omayra Skinner on 08/30/19 4:05 pm * Is the patient Alert and Oriented? Yes * How many steps to enter\exit or inside your home? * PCP [place] * Pharmacy [facility] * Preadmission Environment Home with Family * ADLs Independent * Equipment Bedside Commode Oxygen Walker * Other Equipment CPM * List name and contact numbers for known caregivers / representatives who currently or will assist patient after discharge: SHON (SISTER) [phone] * Verbal permission to speak to the caregivers and representatives has been obtained from the patient. N/A * Community resources currently utilized None * Additional services required to return to the preadmission environment? Yes * Can the patient safely return to the preadmission environment? Yes * Has this patient been hospitalized within the prior 30 days at any hospital? No Coverage Notice Reviewer: [id number] - Omayra Skinner Notice Issued Date-Time: 08/31/2019 15:45 Notice Type: IM Discharge Notice Notice Delivered To: Patient Relationship to Patient: Sack Maker Name: Delivery Method: HAND - Hand Delivered Che Days: Prior Verbal Notification: Recipient Understood Notice: Yes Recipient Signature: Yes Med Rec Note Co-signed by Attending: Coverage Notice Comment: Last DP export: 09/02/19 11:12 Patient Name: GRICELDA SANDOVAL Page [id number] at 1544 All edits/amendments must be made on the electronic document DICTATION DATE: 09/03/191542 BID WRITER: JOSE 09/03/19 154 RPT#: [id number] DC DATE:09/02/19 STATUS: DIS IN [facility] [address] [place] [address] END OF REPORT
== END 2019-09-02 14:55 | disposition home or self-care (01) | DRG 488 ==
LOC: D.SDCHOLD 08-24 10:00 → D.MS 08-29 07:25 → D.SDCHOLD 08-29 09:45 → D.MS 08-29 12:13 → D.SDCHOLD 08-29 12:45 → D.MS 09-02 14:55
PROVIDERS: ADMIT Orthopaedic Surgery; ATTEND Orthopaedic Surgery
PROC: 0SUW09Z Supplement Left Knee Joint, Tibial Surface with Liner, Open Approach (ICD-10-PCS; 2019-08-29)
PROC: 0SPD09Z Removal of Liner from Left Knee Joint, Open Approach (ICD-10-PCS; principal; 2019-08-29 09:45)
DX: T84.84XA Pain due to internal orthopedic prosthetic devices, implants and grafts, initial encounter (principal); Z68.41 Body mass index [BMI] 40.0-44.9, adult; T84.033A Mechanical loosening of internal left knee prosthetic joint, initial encounter; J44.9 Chronic obstructive pulmonary disease, unspecified; L40.50 Arthropathic psoriasis, unspecified; E66.9 Obesity, unspecified

== ENCOUNTER 2020-12-09 15:12 | Emergency (ER) | payer MEDICARE ==
[~2020-12-09] VITALS: Ht 167.6 cm; Wt 127.3 kg
[~2020-12-09 15:12] MED LIST changes: +ALBUTEROL SULF8.5 GM INH; +BACLOFEN20 M1 PO; +FLUTICASONE PRO16 GM NASAL; +HUMIRA PEN INJ 40M INJ; +IPRAT-ALBUT 0.5-3 ML UPD; +NEURONTIN600 MG PO; +VITAMIN D250000 UNIT PO
[2020-12-09 15:28] VITALS: BP 137/93; Ht 167.6 cm; Wt 127.3 kg
[2020-12-09 15:57] LABS: BASOPHILS 0.2 % (0-2); EOSINOPHILS 3.9 % (0-7); HEMATOCRIT 29.5 % (36.0-48.0); HEMOGLOBIN 9.1 g/dL (12-16); IMMATURE GRANULOCYTES 0.4 % (0-5); LYMPHOCYTE ABS# 2.62 10x3/uL (1.18-3.74); LYMPHOCYTES 26.5 % (15-50); MCH 29.7 pg (26.0-34.0); MCHC 30.8 g/dL (31.0-37.0); MCV 96.4 fL (80.0-100.0); MEAN PLATELET VOLUME 10.2 fL (7.4-10.4); MONOCYTES 8.8 % (2-11); NEUTROPHIL ABS# 5.95 10x3/uL (1.56-6.13); NEUTROPHILS 60.2 % (40-80); PLATELET COUNT 290 10x3/uL (130-400); RBC 3.06 10x6/uL (4.00-5.40); RDW 15.5 % (11.5-14.5); WBC 9.9 10x3/uL (4.8-10.8)
[2020-12-09 16:10] LABS: CALC OSMOLALITY 280 mosm/kg (275-300); CALCIUM 10.6 mg/dL (8.5-10.1); CARBON DIOXIDE 34.1 mmol/L (21.0-32.0); CHLORIDE - SERUM 100 mmol/L (98-107); CREATININE - SERUM 1.5 mg/dL (0.6-1.3); GLUCOSE 133 mg/dL (74-106); POTASSIUM - SERUM 3.3 mmol/L (3.5-5.1); SODIUM 137 mmol/L (136-145); UREA NITROGEN 27 mg/dL (7-18); eGFR NON AFRICAN AMERICAN 39 mL/min (90-120)
[2020-12-09 16:12] LABS: APTT 24.3 SECONDS (22.8-39.4); INR 1.04 (0.85-1.17); PROTIME 12.6 SECONDS (11.6-15.0)
[2020-12-09 16:13] LABS: D-DIMER-QUANTITATIVE 0.27 ug/mLFEU (0.20-0.54)
[2020-12-09 16:45] LABS: ALBUMIN 3.5 g/dL (3.4-5.0); ALKALINE PHOSPHATASE 73 U/L (30-120); ALT (SGPT) 19 U/L (10-68); BILIRUBIN - TOTAL 0.26 mg/dL (0.2-1.3); CKMB 0.2 U/L (0.0-3.6); CREATINE KINASE 30 UL (21-215); PRO BNP 44 pg/mL (0-125); PROTEIN - SERUM 6.8 g/dL (6.4-8.2); TROPONIN-I < 0.017 ng/mL (0.000-0.060)
== END 2020-12-09 20:10 | disposition home or self-care (01) ==
LOC: D.ER 15:12
PROVIDERS: Family Medicine
DX: R04.2 Hemoptysis (principal); R93.89 Abnormal findings on diagnostic imaging of other specified body structures; J44.9 Chronic obstructive pulmonary disease, unspecified; M54.9 Dorsalgia, unspecified; K21.9 Gastro-esophageal reflux disease without esophagitis

== ENCOUNTER 2020-12-21 08:51 | Day surgery (SDC) | payer MEDICARE ==
--- NOTE | 2020-12-20 13:18 | NUR ---
CONFIRMED PT APPT TOMORROW. 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 PT CONFIRMED NO BLOOD THINNERS.
[~2020-12-21] VITALS: Ht 167.6 cm; Wt 123.6 kg
[2020-12-21 09:09] LABS: BASOPHILS 0.2 % (0-2); EOSINOPHILS 5.7 % (0-7); HEMATOCRIT 28.9 % (36.0-48.0); HEMOGLOBIN 8.9 g/dL (12-16); IMMATURE GRANULOCYTES 0.2 % (0-5); LYMPHOCYTE ABS# 2.36 10x3/uL (1.18-3.74); LYMPHOCYTES 35.4 % (15-50); MCHC 30.8 g/dL (31.0-37.0); MCV 97.3 fL (80.0-100.0); MEAN PLATELET VOLUME 10.2 fL (7.4-10.4); MONOCYTES 3.8 % (2-11); NEUTROPHIL ABS# 3.65 10x3/uL (1.56-6.13); NEUTROPHILS 54.7 % (40-80); PLATELET COUNT 312 10x3/uL (130-400); RBC 2.97 10x6/uL (4.00-5.40); RDW 15.6 % (11.5-14.5); WBC 6.7 10x3/uL (4.8-10.8)
[2020-12-21 09:15] LABS: ANION GAP 10.4 mmol/L (8-16); CALCIUM 9.5 mg/dL (8.5-10.1); CARBON DIOXIDE 30.4 mmol/L (21.0-32.0); CREATININE - SERUM 1.3 mg/dL (0.6-1.3); INR 0.97 (0.85-1.17); POTASSIUM - SERUM 3.8 mmol/L (3.5-5.1)
[2020-12-21 09:51] LABS: APTT 29.6 SECONDS (22.8-39.4)
[2020-12-21] MEDS ORDERED: BREO ELLIPTA 11 EACH INH (10:11)
[2020-12-21] MEDS ORDERED: OXYIR5 MG PO (10:17)
[2020-12-21 10:20] VITALS: BP 132/82; Ht 167.6 cm; Wt 123.6 kg
--- NOTE | 2020-12-21 17:29 | NUR ---
1500 CXR HERE AND DONE, TOLERATED WELL. 1545 IV REMOVED AND PRESSURE HELD. 1610 PT DISCHARGED AND INSTRUCTIONS GIVEN.
== END 2020-12-21 16:10 | disposition home or self-care (01) ==
LOC: D.CT 08:51
PROVIDERS: Radiology Diagnostic Radiology; ATTEND Internal Medicine Hematology & Oncology
DX: R91.1 Solitary pulmonary nodule (principal); R04.2 Hemoptysis; J44.9 Chronic obstructive pulmonary disease, unspecified

== ENCOUNTER 2021-01-29 17:00 | Outpatient (CLI) | payer MEDICARE ==
[2020-12-21 10:20] VITALS: BMI 44.0
[~2021-01-29 17:00] MED LIST changes: +BREO ELLIPTA 11 EACH INH; +OXYIR5 MG PO
== END 2021-01-29 23:59 | disposition home or self-care (01) ==
LOC: D.MAMMO 17:00
PROVIDERS: ATTEND Family Medicine
DX: N63.0 Unspecified lump in unspecified breast (principal)

== ENCOUNTER → 2021-03-15 14:28 | Outpatient (CLI) | payer MEDICARE ==
[2020-12-21 10:20] VITALS: BMI 44.0
== END | disposition home or self-care (01) ==
LOC: D.LAB 14:28
PROVIDERS: ATTEND Internal Medicine Pulmonary Disease
DX: J44.9 Chronic obstructive pulmonary disease, unspecified (principal); Z11.52 Encounter for screening for COVID-19

== ENCOUNTER → 2021-03-20 10:33 | Outpatient (CLI) | payer MEDICARE, MEDICAID ==
[2020-12-21 10:20] VITALS: BMI 44.0
--- NOTE | 2021-03-20 12:44 | NUR ---
PT DID NOT WANT TO DO WALK TEST, DUE TO HER HAVING BOTH KNEES REPLACED
== END | disposition home or self-care (01) ==
LOC: D.RT 02-06 10:00 → D.RAD 02-06 10:00 → D.RT 10:33
PROVIDERS: ATTEND Internal Medicine Pulmonary Disease
DX: J44.9 Chronic obstructive pulmonary disease, unspecified (principal)